=== PATIENT | female | born 1950 | race Caucasian/White ===

== ENCOUNTER 2016-12-11 22:36 | Emergency (ER) | payer MEDICARE, BC ==
[2016-12-11] MEDS ORDERED: FAMOTIDINE 20 MG/2 ML VIAL IV STA (23:07)
[2016-12-11] MEDS ORDERED: methylPREDNISolone SOD SUCCI 125 MG/2 ML VIAL IV STA (23:07)
[2016-12-12 00:16] VITALS: RESP 18
--- NOTE | 2016-12-12 01:02 | ED ---
General Adult HPI - General Chief complaint: Allergic Reaction Stated complaint: Allergic Reaction Time Seen by Provider: 12/11/16 23:07 Source: patient, family, RN notes reviewed Mode of arrival: ambulatory Limitations: no limitations - History of Present Illness Initial comments: Chief complaint and history of present illness a 66-year-old female here with her . The patient reports she was using a new supplement and think she is having ALLERGIC reaction to it she feels over throat is tight or closing off. No wheezing. - Related Data Home Medications Medication Instructions Recorded Confirmed Cholecalciferol [Vitamin D3] 1,000 unit PO DAILY 01/18/16 12/11/16 Inulin/Chromium Picolinate [Fiber 2 tab PO DAILY 07/24/16 12/11/16 Gummies Chew] Turmeric Root Extract [Turmeric] 500 mg PO DAILY 07/24/16 12/11/16 Alpha Lipoic Acid 1 tab PO DAILY 12/11/16 12/11/16 Milk Thistle 150 mg PO DAILY 12/11/16 12/11/16 Multivits-Min/Iron/FA/Lutein 1 tab PO DAILY 12/11/16 12/11/16 [Centrum Silver Women Tablet] Ubidecarenone [Co Q-10] 100 mg PO DAILY 12/11/16 12/11/16 Previous Rx's Medication Instructions Recorded Famotidine [Pepcid] 20 mg PO DAILY #3 tablet 12/12/16 predniSONE 20 mg PO DAILY #3 tab 12/12/16 Allergies Allergy/AdvReac Type Severity Reaction Status Date / Time amoxicillin Allergy Swelling Verified 12/11/16 23:39 of Lips cinnamon Allergy Rash/Hives Verified 12/11/16 23:39 Iodinated Contrast Media - Allergy Anaphylaxis Verified 12/11/16 23:39 Oral and [Iodinated Contrast Media - IV Dye] latex Allergy Rash/Hives Verified 12/11/16 23:39 venom-honey bee Allergy Swelling/Pa Verified 12/11/16 23:39 ralysis Review of Systems ROS Statement: Those systems with pertinent positive or pertinent negative responses have been documented in the HPI. Review of systems patient has some hives. States she feels over throat is closing. Is no stridor. No wheezing. No chest pain shortness breath GI/ problems. No neuro deficits. All systems are reviewed. Past medical problems significant significant for cancer, hypertension, osteoarthritis. Patient's surgeries include bilateral mastectomy, orthopedic surgery, and cholecystectomy. The patient has ALLERGIES to IV dye oral, latex. Nonsmoker nondrinker ROS Other: All systems not noted in ROS Statement are negative. Past Medical History Past Medical History: Cancer, Hypertension, Osteoarthritis (OA) Additional Past Medical History / Comment(s): breast CA, no current problems w/ hypertension, no longer takes medication History of Any Multi-Drug Resistant Organisms: MRSA Date of last positivie culture/infection: 2010 MDRO Source:: nasal Past Surgical History: Section, Cholecystectomy, Orthopedic Surgery Additional Past Surgical History / Comment(s): Bilateral mastectomy, bilateral knee replacements, bilateral shoulder surgeries, bilateral cateract surgeries, surgery on nose to remove mrsa 2010, left rotator cuff repair 07/25/16 Past Anesthesia/Blood Transfusion Reactions: No Reported Reaction Past Psychological History: No Psychological Hx Reported Smoking Status: Never smoker Past Alcohol Use History: None Reported Past Drug Use History: None Reported - Past Family History Mother Family Medical History: No Reported History General Exam - General Exam Comments Initial Comments: General: The patient is awake and alert, states she had an ALLERGIC reaction to Sinemet tablet. Vital signs show temperature 97.8 pulse 70 respiratory rate 20 pulse ox 99% room air blood pressure 184/77. Eye: Pupils are equal, round and reactive to light, extra-ocular movements are intact ; there is normal conjunctiva bilaterally. No signs of icterus. Ears, nose, mouth and throat: There are moist mucous membranes and no oral lesions. Neck: The neck is supple, there is no tenderness no stridor. Cardiovascular: There is a regular rate and rhythm. No murmur, rub or gallop is appreciated. Respiratory: Lungs are clear to auscultation, respirations are non-labored, breath sounds are equal. No wheezes, stridor, rales, or rhonchi. Gastrointestinal: Soft, non-distended, non-tender abdomen without masses or organomegaly noted. There is no rebound or guarding present. No CVA tenderness. Bowel sounds are unremarkable. Back: There is no tenderness to palpation in the midline. There is no obvious deformity. No rashes noted. Musculoskeletal: Normal ROM, no tenderness, There is no pedal edema. There is no calf tenderness or swelling. Sensation intact. Neurological: No complaint of any weakness or neuro deficits. No noted. Skin: Rare hives, mildly pruritic. Limitations: no limitations Course Vital Signs 12/11/16 12/12/16 22:50 00:15 Temperature 97.8 F Pulse Rate 78 65 Respiratory 20 18 Rate Blood Pressure 184/77 172/81 O2 Sat by Pulse 99 97 Oximetry Medical Decision Making - Medical Decision Making While in emergency room the patient received Pepcid 20 IV and site Medrol 125 IV push. She had taken 100 mg of Benadryl prior to coming emergency room. The patient examined reexamined 4 times while in emergency room. He stabbed feeling less and less like her throat was closing. At no time was there any stridor. The patient be discharged home advised to take prednisone 20 mg daily for 3 days. Continue with Benadryl 25 mg 4 times a day for 3 days. And Pepcid 20 mg daily for 3 days. Advised stay away from any and all things that cause ALLERGIC reactions. Told return emergency room if she has any sensation of recurrence of her ALLERGIC reaction. Disposition Clinical Impression: Allergic reaction Disposition: HOME SELF-CARE Condition: Good Instructions: General Allergic Reaction (ED) Additional Instructions: Take prednisone one tablet daily for 3 days. Take Benadryl for tablets daily for 3 days. Take Pepcid 20 mg one tablet daily for 3 days. Return emergency room if having difficulties at all. Follow-up with family physician as needed Prescriptions: Famotidine [Pepcid] 20 mg PO DAILY #3 tablet predniSONE 20 mg PO DAILY #3 tab Time of Disposition: 01:01
[2016-12-12 01:14] VITALS: BP 176/84; PULSE 68; TEMP 97
== END 2016-12-12 01:14 | disposition home or self-care (01) ==
LOC: EC 22:36
DX: T42.8X5A Adverse effect of antiparkinsonism drugs and other central muscle-tone depressants, initial encounter (principal); I10 Essential (primary) hypertension; Z79.899 Other long term (current) drug therapy; Z88.0 Allergy status to penicillin; Z91.018 Allergy to other foods; Z91.030 Bee allergy status; Z91.040 Latex allergy status; Z91.041 Radiographic dye allergy status; Z85.3 Personal history of malignant neoplasm of breast; Z90.13 Acquired absence of bilateral breasts and nipples
CPT/HCPCS: 99283; 96374; 96375; J2930

== ENCOUNTER → 2017-04-23 | Outpatient (CLI) | payer MEDICARE, BC ==
--- NOTE | 2017-04-23 09:34 | BD ---
EXAMINATION TYPE: MG DEXA axial skeleton. DATE OF EXAM: 04/23/2017 COMPARISON: NONE CLINICAL HISTORY: Postmenopausal female. Height: 5 FT 5 IN Weight: 241 FRAX RISK QUESTIONS: Alcohol (3 or more units per day): NO Family History (Parent hip fracture): NO Glucocorticoids (More than 3mos): NO (Ex: prednisone, prednisolone, methylprednisolone, dexamethasone, and hydrocortisone). History of Fracture in Adulthood: YES Secondary Osteoporosis: 1. Type 1 Diabetes: NO 2. Hyperthyroidism: NO 3. Menopause before 45: NO 4. Malnutrition: NO 5. Chronic liver disease: NO Rheumatoid Arthritis: YES Current Tobacco Use: NO RISK FACTORS HISTORY OF: History of Wrist Fracture: YES When: CHILD Active: YES Postmenopausal woman: PART HYST AGE 31 MEDICATIONS: Additional Medications: NONE Additional History: BREAST CA 2007 NO RADIATION ORAL CHEMO EXAM MEASUREMENTS: Bone mineral densitometry was performed using the Helpa System. Bone mineral density as measured about the Lumbar spine is: ----- L1-L4(G/cm2): 1.385 T Score Values are as follows: ----- L2: 1.9 ----- L3: 1.6 ----- L4: 1.5 ----- L1-L4: 1.7 BASELINE Bone mineral density about the R hip (g/cm2): 0.946 Bone mineral density about the L hip (g/cm2): 0.823 T Score values are as follows: -----R Neck: -0.7 -----L Neck: -0.8 -----R Total: -0.2 -----L Total: -0.1 BASELINE IMPRESSION: NORMAL STUDY. NOTE: T-SCORE=SD OF THE YOUNG ADULT MEAN.
--- NOTE | 2017-04-23 17:16 | WWHP ---
CHIEF COMPLAINT: The patient is here for her routine gynecologic exam and bone density screening. HPI: This is a 66-year-old G2, P2 with an LMP of 1981 who is status post vaginal hysterectomy for benign reasons. The patient has occasionally used Kenalog cream for intermittent vulvar pruritus. She is requesting another prescription for this. She is otherwise without gynecologic complaints. PAST MEDICAL HISTORY: Right breast cancer in 2006 and is status post bilateral mastectomy. She has completed 5 years of Femara and no longer uses this. Also history of chronic hypertension, arthritis, gastroesophageal reflux disease, and degenerative disc disease. MEDICATIONS: None. ALLERGIES: AMOXICILLIN, IV DYE, AND LATEX. PAST SURGICAL HISTORY: Bilateral mastectomy with reconstruction in 2006 and revision of the breast reconstruction in 2014, section in 1976 and 1980. Open cholecystectomy in the past. Shoulder surgeries in 1989, 1999 and 2015. Bilateral knee replacement surgeries in 2009 and 2012. Hemorrhoid surgery in the past, bilateral cataract surgery in the past. Colonoscopy in 2014. 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 SOCIAL HISTORY: She denies tobacco, alcohol and drug use. She has been since 2012 and this is her second marriage. 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 FAMILY HISTORY: Father and grandmother had diabetes. Mother had cardiac arrhythmia. REVIEW OF SYSTEMS: She has lost about 16 pounds over the last year. She denies respiratory, cardiac, or GI problems. She denies maltreatment. She did fall once in 10/12 and did undergo fall assessment at that time. : She denies any problems with urinary leakage. PHYSICAL EXAM: Blood pressure 144/82, height 5 feet 5 inches, weight 241 pounds. Temperature 98.0, pulse 75. This is a well developed, well nourished white female who is alert and oriented x3 in no acute distress. HEENT is within normal limits. Neck is supple without mass or thyromegaly. Chest and lungs clear to auscultation. Heart: Regular rate and rhythm. Breasts are consistent with bilateral mastectomies status post implant placement. Breasts are without mass or discharge and are nontender. Axillary exam is negative for adenopathy. Back negative for CVA tenderness. Abdomen is soft, nontender without palpable masses. Pelvic exam: External genitalia reveals mild to moderate atrophy without lesions. Vagina appears normal with mild atrophy. There is no evidence of prolapse. Bimanual exam is negative for mass or tenderness. Rectovaginal exam is negative for mass or tenderness and is negative for occult blood. Extremities are nontender. IMPRESSION: 1. A 66-year-old menopausal female status post vaginal hysterectomy for benign reasons with normal gynecologic exam. 2. Intermittent vulvar pruritus without any significant physical findings who has done well with intermittent use of Kenalog cream for this. 3. History of right breast cancer status post bilateral mastectomy with no evidence of recurrence. PLAN: 1. PAP smears have been discontinued. 2. Self breast examination was discussed. 3. Mammograms have been discontinued. 4. Kenalog 0.1% cream b.i.d. p.r.n. She will call if she is having worsening symptoms or changes. 5. Bone density testing will be done today. Osteoporosis prevention was also discussed. 6. She will return in one year. VENICE
== END | disposition home or self-care (01) ==
LOC: WWCWWP 07:53
PROVIDERS: ATTEND Obstetrics & Gynecology
DX: Z78.0 Asymptomatic menopausal state (principal)
CPT/HCPCS: 77080

== ENCOUNTER → 2018-08-14 | Outpatient (CLI) | payer MEDICARE ==
[2018-08-14 12:30] LABS: Basophils % (A) 1 %; Eosinophils # (A) 0.1 k/uL (0-0.7); Eosinophils % (A) 2 %; HCT 44.4 % (34.0-46.0); HGB 14.2 gm/dL (11.4-16.0); Lymphocytes # (A) 1.5 k/uL (1.0-4.8); Lymphocytes % (A) 22 %; MCH 27.4 pg (25.0-35.0); MCV 85.7 fL (80.0-100.0); Mean Platelet Volume 7.8; Monocytes # (A) 0.4 k/uL (0-1.0); Monocytes % (A) 5 %; Neutrophils # (A) 4.6 k/uL (1.3-7.7); Neutrophils % (A) 69 %; Platelet Count 219 k/uL (150-450); RBC 5.18 m/uL (3.80-5.40); RDW 14.3 % (11.5-15.5); WBC 6.7 k/uL (3.8-10.6)
[2018-08-14 12:33] LABS: Appearance,Urine Cloudy (Clear); Bacteria,Urine Rare /hpf; Bilirubin,Urine Negative (Negative); Blood,Urine Negative (Negative); Color,Urine Yellow; Glucose,Urine (UA) Negative (Negative); Ketones,Urine Negative (Negative); Leukocyte Esterase,Urine Large (Negative); Mucus,Urine Rare /hpf; Nitrite,Urine Negative (Negative); Protein,Urine Negative (Negative); RBC,Urine 6 /hpf (0-5); Specific Gravity,Urine 1.018 (1.001-1.035); Squamous Epithelial Cell,Urine 35 /hpf (0-4); Urobilinogen,Urine <2.0 mg/dL (<2.0); WBC,Urine 33 /hpf (0-5)
[2018-08-14 19:13] LABS: Albumin 4.4 g/dL (3.80-4.90); Albumin/Globulin Ratio 1.91 (1.20-2.10); Anion Gap 9.3 mmol/L (4.00-12.00); Calcium 9.6 mg/dL (8.7-10.3); Carbon Dioxide 28.7 mmol/L (21.6-31.8); Globulin 2.3 g/dL (2.1-3.7); LDL Cholesterol,Calculated 100.2 mg/dL (0.0-131.0); Total Bilirubin 0.9 mg/dL (0.3-1.2); Total Protein 6.7 g/dL (6.2-8.2); VLDL Calculation 13.8 mg/dL (5.00-40.00)
[2018-08-14 21:32] LABS: Hemoglobin A1C 5.4 % (4.0-6.0)
== END | disposition home or self-care (01) ==
LOC: LABWHC1 11:38
PROVIDERS: ATTEND Family Medicine
DX: E66.01 Morbid (severe) obesity due to excess calories (principal)
CPT/HCPCS: 36415; 80053; 80061; 81001; 83036; 84443; 85025

== ENCOUNTER → 2018-08-28 | Outpatient (CLI) | payer MEDICARE ==
--- NOTE | 2018-08-28 16:00 | US ---
EXAMINATION TYPE: US carotid duplex BILAT DATE OF EXAM: 08/28/2018 COMPARISON: NONE CLINICAL HISTORY: Murmur R01.1, Carotid Bruit R09.89. EXAM MEASUREMENTS: RIGHT: Peak Systolic Velocity (PSV) cm/sec ----- Right CCA: 79.8 ----- Right ICA: 105.0 ----- Right ECA: 106.1 ICA/CCA ratio: 1.3 RIGHT: End Diastole cm/sec ----- Right CCA: 18.9 ----- Right ICA: 32.3 ----- Right ECA: 10.2 LEFT: Peak Systolic Velocity (PSV) cm/sec ----- Left CCA: 82.9 ----- Left ICA: 87.7 ----- Left ECA: 117.0 ICA/CCA ratio: 1.6 LEFT: End Diastole cm/sec ----- Left CCA: 15.7 ----- Left ICA: 31.5 ----- Left ECA: 13.3 VERTEBRALS (direction of flow): Right Vertebral: Antegrade Left Vertebral: Antegrade Rhythm: Normal Mild homogeneous plaque seen with no significant stenosis seen. IMPRESSION: Mild degree of grayscale atheromatous plaquing with no sonographically evident hemodynam ically significant stenosis within either visualized carotid arterial system.. Criteria for Assigning % of Stenosis / Diameter reduction (Estimation based on the indirect measurements of the internal carotid artery velocities (ICA PSV). 1. Normal (no stenosis)=ICA PSV < 125 cm/s: ratio < 2.0: ICA EDV<40 cm/s. 2. Less than 50% stenosis=ICA PSV < 125 cm/s: ratio < 2.0: ICA EDV<40 cm/s. 3. 50 to 69% stenosis=ICA PSV of 125 to 230 cm/s: ration 2.0 ? 4.0: ICA EDV 40-100 cm/s. 4. Greater than 70% stenosis to near occlusion= ICA PSV > 230 cm/s: ratio > 4.0: ICA EDV > 100 cm/s. 5. Near occlusion= ICA PSV velocities may be low or undetectable: variable ratio and ICA EDV. 6. Total occlusion=unable to detect flow.
--- NOTE | 2018-08-29 11:32 | ECHOF ---
Referral Reason:Murmur R01.1, Carotid Bruit R09.89 MEASUREMENTS -------- HEIGHT: 165.1 cm WEIGHT: 108.9 kg BP: 125/75 RVIDd: 3.2 cm (< 3.3) IVSd: 1.5 cm (0.6 - 1.1) LVIDd: 3.5 cm (3.9 - 5.3) LVPWd: 1.4 cm (0.6 - 1.1) IVSs: 1.6 cm LVIDs: 2.7 cm LVPWs: 1.8 cm LA Diam: 3.5 cm (2.7 - 3.8) LAESV Index (A-L): 32.97 ml/m Ao Diam: 3.0 cm (2.0 - 3.7) AV Cusp: 1.5 cm (1.5 - 2.6) MV EXCURSION: 11.063 mm (> 18.000) MV EF SLOPE: 28 mm/s (70 - 150) EPSS: 0.2 cm MV E Luisito: 0.96 m/s MV DecT: 356 ms MV A Luisito: 1.21 m/s MV E/A Ratio: 0.79 AV maxP.93 mmHg AV meanP.72 mmHg AR PHT: 1156 ms RAP: 5.00 mmHg RVSP: 35.84 mmHg FINDINGS -------- Sinus rhythm. This was a technically adequate study. The left ventricular size is normal. There is moderate concentric left ventricular hypertrophy. O verall left ventricular systolic function is normal with, an EF between 60 - 65 %. The right ventricle is normal in size. LA is midly dilated 29-33ml/m2. The right atrium is normal in size. There is mild aortic valve sclerosis. There is mild aortic stenosis present. Peak/mean gradient a cross the Aortic Valve is 24.93mmHg / 13.72mmHg. The mitral valve leaflets are mildly thickened. Mild mitral annular calcification present. No manuel ral regurgitation. Mild tricuspid regurgitation present. There is mild pulmonary hypertension. The right ventricular systolic pressure, as measured by Doppler, is 35.84mmHg. Trace/mild (physiologic) pulmonic regurgitation. The aortic root size is normal. Normal inferior vena cava with normal inspiratory collapse consistent with estimated right atrial pre ssure of 5 mmHg. The inferior vena cava is mildly dilated. There is no pericardial effusion. CONCLUSIONS -------- 1. Sinus rhythm. 2. This was a technically adequate study. 3. The left ventricular size is normal. 4. There is moderate concentric left ventricular hypertrophy. 5. Overall left ventricular systolic function is normal with, an EF between 60 - 65 %. 6. The right ventricle is normal in size. 7. LA is midly dilated 29-33ml/m2. 8. The right atrium is normal in size. 9. There is mild aortic valve sclerosis. 10. There is mild aortic stenosis present. 11. Peak/mean gradient across the Aortic Valve is 24.93mmHg / 13.72mmHg. 12. The mitral valve leaflets are mildly thickened. 13. Mild mitral annular calcification present. 14. No mitral regurgitation. 15. Mild tricuspid regurgitation present. 16. There is mild pulmonary hypertension. 17. The right ventricular systolic pressure, as measured by Doppler, is 35.84mmHg. 18. Trace/mild (physiologic) pulmonic regurgitation. 19. The aortic root size is normal. 20. Normal inferior vena cava with normal inspiratory collapse consistent with estimated right atrial pressure of 5 mmHg. 21. The inferior vena cava is mildly dilated. 22. There is no pericardial effusion. INSURANCE HEALTHCARE CONSULTANT: Nina Zendejas RDCS
== END | disposition home or self-care (01) ==
LOC: RADUSMAIN 11:59
PROVIDERS: ATTEND Family Medicine
DX: I65.29 Occlusion and stenosis of unspecified carotid artery (principal)
CPT/HCPCS: 93306; 93880

== ENCOUNTER → 2018-10-07 | Outpatient (CLI) | payer MEDICARE | END | disposition home or self-care (01) | LOC: LABWHC1 11:10 | PROVIDERS: ATTEND Family Medicine | DX: Z53.9 Procedure and treatment not carried out, unspecified reason (principal) ==

== ENCOUNTER → 2019-08-31 | Outpatient (CLI) | payer MEDICARE | END | disposition home or self-care (01) | LOC: RADECHMAIN 12:21 | PROVIDERS: ATTEND Nuclear Medicine Nuclear Cardiology | DX: I47.1 Supraventricular tachycardia (principal); I49.3 Ventricular premature depolarization | CPT/HCPCS: 93270 ==

== ENCOUNTER → 2019-09-23 | Outpatient (CLI) | payer MEDICARE ==
--- NOTE | 2019-09-24 10:23 | BMR ---
EXAMINATION TYPE: MR breast BILAT wo con DATE OF EXAM: 09/23/2019 COMPARISON: NONE HISTORY: personal hx malignant neoplasm breast, rupture implant. Implants were placed 13 years ago [facility] 2006. CONTRAST: Multiplanar, multisequence images of the breasts were acquired without IV contrast. TECHNIQUE: A series of fat and water weighted images in the long and short axis views of both breasts are obtained . Three-dimensional and additional postprocessing imaging is created on independent wo rkstation and reviewed during official interpretation of this study. FINDINGS: There is subcutaneous fat in both breasts after reconstruction. There are symmetric in size subpectoral silicone implants noted bilaterally. No suspicious infolding to suggest intracapsular ru pture in the right breast. Left breast shows some more suspicious infolding along superior lateral as pect sagittal image 16 correlating with axial image 35 series 501. There is additional more suspiciou s infolding along the inferior aspect of the implant seen best on axial image 13 corresponding to sag ittal image 21. There is no suggestion of foci of silicone outside the implants to suggest extracaps ular rupture. Chest wall appears intact. No suspicious axillary adenopathy. No suspicious skin thickening is noted. Suspect incidental small to moderate size hiatal hernia, correlate clinically. IMPRESSION: MRI shows evidence of some intracapsular rupture involving the left breast implant though implants size overall remains fairly symmetric to opposite right breast. No extracapsular rupture is noted.
== END | disposition home or self-care (01) ==
LOC: RADMRIMAIN 07:13
PROVIDERS: ATTEND Surgery Plastic and Reconstructive Surgery
DX: Z42.1 Encounter for breast reconstruction following mastectomy (principal); N64.89 Other specified disorders of breast; L90.5 Scar conditions and fibrosis of skin; Z98.82 Breast implant status; Z85.3 Personal history of malignant neoplasm of breast
CPT/HCPCS: 77047

== ENCOUNTER → 2019-11-11 | Outpatient (CLI) | payer MEDICARE ==
--- NOTE | 2019-11-11 12:52 | XR ---
EXAMINATION TYPE: XR chest 2V DATE OF EXAM: 11/11/2019 COMPARISON: 03/22/2015 HISTORY: Persistent cough for 6-8 weeks TECHNIQUE: Frontal and lateral views of the chest are obtained. FINDINGS: Copious soft tissues obscure the lower lungs on the frontal view. There is no focal air spa ce opacity, pleural effusion, or pneumothorax seen. The cardiac silhouette size is within normal chavarria its. Mild to moderate degenerative change of the spine. The osseous structures are intact. Cholecyst ectomy clips are seen. Rotator cuff anchor of the right humerus from prior surgery. IMPRESSION: No acute cardiopulmonary process.
== END | disposition home or self-care (01) ==
LOC: LABWHC1 11:55
PROVIDERS: ATTEND Family Medicine
DX: R05 Cough (principal)
CPT/HCPCS: 87502; 71046; U0002

== ENCOUNTER → 2020-01-19 | Outpatient (CLI) | payer MEDICARE | END | disposition home or self-care (01) | LOC: LABWHC1 08:48 | PROVIDERS: ATTEND Internal Medicine Clinical Cardiac Electrophysiology | DX: Z11.59 Encounter for screening for other viral diseases (principal) | CPT/HCPCS: 87635 ==

== ENCOUNTER → 2020-01-26 | Outpatient (CLI) | payer MEDICARE ==
--- NOTE | 2020-01-28 09:17 | USB ---
Reason for exam: clinical finding. History: Patient is postmenopausal and has history of breast cancer at age 55. Mastectomy of both breasts, October 30, 2006. Malignant right mammotome panel of the right breast, October 18, 2006. Benign excisional biopsy of the right breast, October 14, 2000. Excisional biopsy of the left breast. Took estrogen for 3 years. Indicated problem(s): breast implant problem in the right breast. Physical Findings: Nurse Summary: right breast hematoma x 1 month from breast surgery (nurse raya). US Breast RT Right complete breast ultrasound includes all four quadrants, the retroareolar region and axilla. Finding demonstrates a 13.3 x 2.3cm hypoechoic lesion with echoes at 2-4 o'clock. Could relate to rashad-implant hematoma/seroma or rupture. MRI needed for further evaluation. These results were verbally communicated with the patient and result sheet given to the patient on 01/26/20. ASSESSMENT: Incomplete: need additional imaging evaluation, BI-RAD 0 RECOMMENDATION: Breast MRI of both breasts.
== END | disposition home or self-care (01) ==
LOC: RADUSWWP 13:49
PROVIDERS: ATTEND Surgery Plastic and Reconstructive Surgery
DX: Z08 Encounter for follow-up examination after completed treatment for malignant neoplasm (principal); Z85.3 Personal history of malignant neoplasm of breast; Z90.11 Acquired absence of right breast and nipple

== ENCOUNTER → 2020-12-28 | Outpatient (CLI) | payer MEDICARE ==
--- NOTE | 2020-12-28 10:34 | CT ---
EXAMINATION TYPE: CT abdomen pelvis wo con DATE OF EXAM: 12/28/2020 HISTORY: Right sided lower quadrant and pelvic pain CT DLP: 1318 mGycm. Automated Exposure Control for Dose Reduction was Utilized. TECHNIQUE: CT scan of the abdomen and pelvis is performed without oral or IV contrast. COMPARISON: NONE FINDINGS: Within the limitations of a non-contrast study, the following observations are made. LUNG BASES: Mild bibasilar linear scarring and/or atelectasis. Partial visualization of right breast implant. Mild to moderate left atrial dilatation with suspected mild to moderate left ventricular dil atation. At least moderate educational level of the mitral valve. LIVER/GB: Cholecystectomy clips. PANCREAS: No significant abnormality is seen. SPLEEN: No significant abnormality is seen. ADRENALS: No significant abnormality is seen. KIDNEYS: No significant abnormality is seen. BOWEL: There is 4.2 x 2.2 cm duodenal diverticulum along second portion mesenteric surface coronal im age 36. Slightly suboptimal evaluation of bowel without enteric contrast. No suspicious small or larg e bowel dilatation. Stomach poorly distended and thus suboptimally evaluated. Diverticula in the left and sigmoid colon. No CT evidence for acute diverticulitis. Appendix is not seen with certainty. No inflammatory change at base of cecum in the right lower quadrant GENITAL ORGANS: Uterus surgically absent or markedly atrophic. LYMPH NODES: No greater than 1cm abdominal or pelvic lymph nodes are appreciated. Slightly prominent mesenteric lymph nodes with mild haziness. OSSEOUS STRUCTURES: Moderate axial joint space loss with mild to moderate acetabular spurring in both hips. Moderate disc space narrowing with vacuum disc phenomenon at L5-S1 level. Mild disc space narr owing with vacuum disc phenomenon at L4-L5 level. [id number] multilevel anterior and lateral sp urring in the thoracolumbar spine. OTHER: There is moderate to large size fat-containing umbilical hernia. Mild calcified plaque of the aorta extends into branch vessels slightly more prominent origin of left renal artery IMPRESSION: 1. Mild prominence of mesenteric lymph nodes with mild lexii mesentery appearance could reflect produ ct of acute mesenteric panniculitis, correlate clinically. No bowel obstruction or suspicious finding otherwise seen to account for patient's right lower quadrant pain.
== END | disposition home or self-care (01) ==
LOC: RADCTMAIN 09:42
PROVIDERS: ATTEND Family Medicine
DX: R10.31 Right lower quadrant pain (principal)
CPT/HCPCS: 74176

== ENCOUNTER → 2021-06-20 | Outpatient (CLI) | payer MEDICARE ==
[2021-06-20 12:16] LABS: HCT 39.7 % (34.0-46.0); HGB 12.8 gm/dL (11.4-16.0); MCH 28.6 pg (25.0-35.0); MCHC 32.3 g/dL (31.0-37.0); MCV 88.8 fL (80.0-100.0); Mean Platelet Volume 8.5; Platelet Count 183 k/uL (150-450); RBC 4.47 m/uL (3.80-5.40); RDW 13.7 % (11.5-15.5); WBC 5.9 k/uL (3.8-10.6)
[2021-06-20 12:19] LABS: African American GFR (CKD) >90 (>60 ml/min/1.73 sqM); Anion Gap 6 mmol/L; Blood Urea Nitrogen 18 mg/dL (7-17); Carbon Dioxide 26 mmol/L (22-30); Chloride 105 mmol/L (98-107); Non-African American GFR(CKD) 83 (>60 ml/min/1.73 sqM); Potassium 3.9 mmol/L (3.5-5.1); Sodium 137 mmol/L (137-145)
== END | disposition home or self-care (01) ==
LOC: LABPAT 10:26
PROVIDERS: ATTEND Internal Medicine Clinical Cardiac Electrophysiology
DX: Z01.812 Encounter for preprocedural laboratory examination (principal); I48.11 Longstanding persistent atrial fibrillation
CPT/HCPCS: 36415; 80051; 82565; 84520; 85027

== ENCOUNTER 2021-06-22 16:44 | Emergency (ER) | payer MEDICARE ==
[2021-06-22 16:59] VITALS: RESP 18
[2021-06-22] MEDS ORDERED: SODIUM CHLORIDE 0.9% 1,000 ML IV STA (17:26)
[2021-06-22] MEDS ORDERED: MORPHINE SULFATE 4 MG/ML SYRINGE IVP STA (17:26)
[2021-06-22] MEDS ORDERED: methylPREDNISolone SOD SUCCI 125 MG/2 ML VIAL IV STA (17:32)
[2021-06-22] MEDS ORDERED: FAMOTIDINE 20 MG/2 ML VIAL IV STA (17:33)
[2021-06-22] MEDS ORDERED: diphenhydrAMINE 50 MG/ML 1 ML VIAL IVP STA (17:33)
[2021-06-22 17:39] LABS: Basophils % (A) 0 %; Eosinophils # (A) 0.1 k/uL (0-0.7); Eosinophils % (A) 1 %; HCT 40.4 % (34.0-46.0); HGB 13.2 gm/dL (11.4-16.0); Lymphocytes # (A) 0.7 k/uL (1.0-4.8); Lymphocytes % (A) 12 %; MCH 28.3 pg (25.0-35.0); MCHC 32.8 g/dL (31.0-37.0); MCV 86.3 fL (80.0-100.0); Mean Platelet Volume 8.2; Monocytes # (A) 0.3 k/uL (0-1.0); Monocytes % (A) 5 %; Neutrophils # (A) 5.1 k/uL (1.3-7.7); Neutrophils % (A) 81 %; Platelet Count 170 k/uL (150-450); RBC 4.67 m/uL (3.80-5.40); RDW 13.4 % (11.5-15.5); WBC 6.3 k/uL (3.8-10.6)
--- NOTE | 2021-06-22 17:44 | ED ---
General Adult HPI - General Chief complaint: Headache Stated complaint: headache/nausea/neck pain Time Seen by Provider: 06/22/21 17:05 Source: patient, RN notes reviewed Mode of arrival: ambulatory Limitations: no limitations - History of Present Illness Initial comments: 70-year-old female presents to the emergency room for a chief complaint of headache. Patient states that she had a headache starting today. States this started this morning and has been persistent throughout the day. She states that over the past 3 days she had some right-sided neck pain as well. This happened a couple weeks ago additionally. Patient states the neck pain is better but her headache is worse. Patient denies nausea vomiting. Patient did take Tylenol that didn't seem to help. Patient did get her covid and influenza shots yesterday. She denies fevers. Denies neck stiffness. Denies visual changes.Patient has no other complaints at this time including shortness of breath, chest pain, abdominal pain, nausea or vomiting, headache, or visual changes. - Related Data Home Medications Medication Instructions Recorded Confirmed Acetaminophen [Tylenol 8 Hour] 650 mg PO Q8H PRN 06/22/21 06/22/21 Apixaban [Eliquis] 5 mg PO BID 06/22/21 06/22/21 Metoprolol Succinate [Toprol XL] 25 mg PO BID 06/22/21 06/22/21 Allergies Allergy/AdvReac Type Severity Reaction Status Date / Time amoxicillin Allergy Swelling Verified 06/22/21 17:35 of Lips cinnamon Allergy Rash/Hives Verified 06/22/21 17:35 Iodinated Contrast Media Allergy Anaphylaxis Verified 06/22/21 17:35 [Iodinated Contrast Media - IV Dye] latex Allergy Rash/Hives Verified 06/22/21 17:35 venom-honey bee Allergy Swelling/Pa Verified 06/22/21 17:35 ralysis Review of Systems ROS Statement: Those systems with pertinent positive or pertinent negative responses have been documented in the HPI. ROS Other: All systems not noted in ROS Statement are negative. Past Medical History Past Medical History: Cancer, Hypertension, Osteoarthritis (OA) Additional Past Medical History / Comment(s): breast CA, no current problems w/hypertension, no longer takes medication History of Any Multi-Drug Resistant Organisms: MRSA Date of last positivie culture/infection: 2010 MDRO Source:: nasal Past Surgical History: Section, Cholecystectomy, Orthopedic Surgery Additional Past Surgical History / Comment(s): Bilateral mastectomy, bilateral knee replacements, bilateral shoulder surgeries, bilateral cateract surgeries, surgery on nose to remove mrsa 2010, left rotator cuff repair 07/25/16 Past Anesthesia/Blood Transfusion Reactions: No Reported Reaction Past Psychological History: No Psychological Hx Reported Smoking Status: Never smoker Past Alcohol Use History: None Reported Past Drug Use History: None Reported - Past Family History Mother Family Medical History: No Reported History General Exam Limitations: no limitations General appearance: alert, in no apparent distress Head exam: Present: atraumatic Eye exam: Present: normal appearance, PERRL, EOMI. Absent: scleral icterus, conjunctival injection ENT exam: Present: normal exam, mucous membranes moist Neck exam: Present: normal inspection, full ROM. Absent: tenderness Respiratory exam: Present: normal lung sounds bilaterally. Absent: respiratory distress, wheezes Cardiovascular Exam: Present: regular rate, normal rhythm, normal heart sounds GI/Abdominal exam: Present: soft, normal bowel sounds. Absent: distended, tenderness Neurological exam: Present: alert, oriented X3, normal gait, other (GCS 15) Course Vital Signs 06/22/21 06/22/21 16:56 19:04 Temperature 98.5 F 98.2 F Pulse Rate 74 61 Respiratory 18 18 Rate Blood Pressure 164/85 176/86 O2 Sat by Pulse 95 97 Oximetry Medical Decision Making - Medical Decision Making Vitals are stable. No focal neurologic deficits. CBC CMP unremarkable. CT head and neck with contrast did not show any abnormality. Patient was given pain medication and did have significant improvement in symptoms. States her headache is completely gone. Patient was somewhat hypertensive in the emergency room. States she is due for her metoprolol which she takes twice a day. She will take this when she gets home. She will return here for any worsening symptoms. - Lab Data Result diagrams: 06/22/21 17:35 06/22/21 17:35 Lab Results 06/22/21 06/22/21 Range/Units 17:35 17:35 WBC 6.3 (3.8-10.6) k/uL RBC 4.67 (3.80-5.40) m/uL Hgb 13.2 (11.4-16.0) gm/dL Hct 40.4 (34.0-46.0) % MCV 86.3 (80.0-100.0) fL MCH 28.3 (25.0-35.0) pg MCHC 32.8 (31.0-37.0) g/dL RDW 13.4 (11.5-15.5) % Plt Count 170 (150-450) k/uL MPV 8.2 Neutrophils % 81 % Lymphocytes % 12 % Monocytes % 5 % Eosinophils % 1 % Basophils % 0 % Neutrophils # 5.1 (1.3-7.7) k/uL Lymphocytes # 0.7 L (1.0-4.8) k/uL Monocytes # 0.3 (0-1.0) k/uL Eosinophils # 0.1 (0-0.7) k/uL Basophils # 0.0 (0-0.2) k/uL Sodium 134 L (137-145) mmol/L Potassium 3.4 L (3.5-5.1) mmol/L Chloride 101 (98-107) mmol/L Carbon Dioxide 23 (22-30) mmol/L Anion Gap 10 mmol/L BUN 12 (7-17) mg/dL Creatinine 0.56 (0.52-1.04) mg/dL Est GFR (CKD-EPI)AfAm >90 (>60 ml/min/1.73 sqM) Est GFR (CKD-EPI)NonAf >90 (>60 ml/min/1.73 sqM) Glucose 136 H (74-99) mg/dL Calcium 9.2 (8.4-10.2) mg/dL Total Bilirubin 1.1 (0.2-1.3) mg/dL AST 38 H (14-36) U/L ALT 26 (4-34) U/L Alkaline Phosphatase 151 H (38-126) U/L Total Protein 7.0 (6.3-8.2) g/dL Albumin 3.8 (3.5-5.0) g/dL Disposition Clinical Impression: Headache Disposition: HOME SELF-CARE Condition: Good Instructions (If sedation given, give patient instructions): Acute Headache (ED) Additional Instructions: Please take Tylenol at home for pain. Please follow-up with primary care. If you have worsening symptoms return to the emergency room. Is patient prescribed a controlled substance at d/c from ED?: No Referrals: Ida Shaffer MD [Primary Care Provider] - 1-2 days Time of Disposition: :07
[2021-06-22 17:49] LABS: ALT 26 U/L (4-34); AST 38 U/L (14-36); African American GFR (CKD) >90 (>60 ml/min/1.73 sqM); Albumin 3.8 g/dL (3.5-5.0); Alkaline Phosphatase 151 U/L (38-126); Anion Gap 10 mmol/L; Blood Urea Nitrogen 12 mg/dL (7-17); Calcium 9.2 mg/dL (8.4-10.2); Carbon Dioxide 23 mmol/L (22-30); Chloride 101 mmol/L (98-107); Glucose 136 mg/dL (74-99); Non-African American GFR(CKD) >90 (>60 ml/min/1.73 sqM); Potassium 3.4 mmol/L (3.5-5.1); Sodium 134 mmol/L (137-145); Total Bilirubin 1.1 mg/dL (0.2-1.3)
--- NOTE | 2021-06-22 18:31 | CT ---
EXAMINATION TYPE: CT angio head neck DATE OF EXAM: 06/22/2021 COMPARISON: none HISTORY: Headache. CT DLP: 1873 mGycm CONTRAST: Performed without and with IV Contrast, patient injected with 65 mL of Isovue 370. Combination Contrast CTA cervical carotids and [place] CTA cervical carotids with 3-D recons truction Contrast CTA of the cervical carotids was performed 3-D reconstruction imaging obtained at a separate workstation. Right carotid system: Mild plaque is seen of the right common carotid artery. There is mild plaque a lso noted at the carotid bulb and proximal ICA. No significant diameter reduction. ECA is patent. Right vertebral artery appears unremarkable. Left carotid system: Mild plaque is seen of the left common carotid artery. There is mild plaque als o noted at the carotid bulb and proximal ICA. No significant diameter reduction. ECA is patent. Lef t vertebral artery appears unremarkable. IMPRESSION: 1. No significant diameter reduction to account for the patient's symptoms. CTA [place] with 3-D reconstruction Contrast CTA of the [place] was performed 3-D reconstruction imaging obtained at a separate workstation. Vertebrobasilar system as well as intracranial portions of the internal carotid arteries and their ma tanya tributaries are patent. I do not see evidence for sizable aneurysm or vascular malformation. Pl ease note MRI provides greater sensitivity and specificity. Visualized brain appears grossly unremar kable. IMPRESSION: 1. No significant abnormality. NASCET criteria was used in interpretation of this exam?
[2021-06-22 19:05] VITALS: BP 176/86; PULSE 61; TEMP 98.2
[2021-06-22] MEDS ORDERED: METOCLOPRAMIDE 5 MG/ML 2 ML VIAL IVP STA (19:08)
== END 2021-06-22 19:27 | disposition home or self-care (01) ==
LOC: EC 16:44
DX: R51.9 Headache, unspecified (principal); I10 Essential (primary) hypertension; M19.90 Unspecified osteoarthritis, unspecified site; Z79.01 Long term (current) use of anticoagulants; Z79.899 Other long term (current) drug therapy; Z85.3 Personal history of malignant neoplasm of breast
CPT/HCPCS: 36415; 80053; 85025; 70496; 70498; 96374; 96375 ×4; 96361; 99284; J2270; J1200; J2765; J2930; Q9967

== ENCOUNTER 2021-07-12 09:59 | Emergency (ER) | payer MEDICARE ==
[2021-07-12 10:42] VITALS: BP 160/81; PULSE 64; RESP 18; TEMP 98.2
--- NOTE | 2021-07-12 10:45 | ED ---
General Adult HPI - General Chief complaint: Recheck/Abnormal Lab/Rx Stated complaint: Covid test/Sent by dr paul Time Seen by Provider: 07/12/21 10:38 Source: patient, RN notes reviewed Mode of arrival: ambulatory Limitations: no limitations - History of Present Illness Initial comments: 70-year-old female presents emergency department for COVID-19 testing. Patient states she is asymptomatic she was sent over by Dr. Joe for COVID-19 testing as she is having surgery tomorrow. Patient denies fevers chills cough cold like symptoms - Related Data Home Medications Medication Instructions Recorded Confirmed Apixaban [Eliquis] 5 mg PO BID 06/22/21 07/12/21 Metoprolol Succinate [Toprol XL] 25 mg PO DAILY 06/22/21 07/12/21 Allergies Allergy/AdvReac Type Severity Reaction Status Date / Time amoxicillin Allergy Swelling Verified 07/12/21 10:42 of Lips cinnamon Allergy Rash/Hives Verified 07/12/21 10:42 Iodinated Contrast Media Allergy Anaphylaxis Verified 07/12/21 10:42 [Iodinated Contrast Media - IV Dye] latex Allergy Rash/Hives Verified 07/12/21 10:42 venom-honey bee Allergy Swelling/Pa Verified 07/12/21 10:42 ralysis Review of Systems ROS Statement: Those systems with pertinent positive or pertinent negative responses have been documented in the HPI. ROS Other: All systems not noted in ROS Statement are negative. Past Medical History Past Medical History: Cancer, Hypertension, Osteoarthritis (OA) Additional Past Medical History / Comment(s): breast CA, no current problems w/hypertension, no longer takes medication History of Any Multi-Drug Resistant Organisms: MRSA Date of last positivie culture/infection: 2010 MDRO Source:: nasal Past Surgical History: Section, Cholecystectomy, Orthopedic Surgery Additional Past Surgical History / Comment(s): Bilateral mastectomy, bilateral knee replacements, bilateral shoulder surgeries, bilateral cateract surgeries, surgery on nose to remove mrsa 2010, left rotator cuff repair 07/25/16 Past Anesthesia/Blood Transfusion Reactions: No Reported Reaction Past Psychological History: No Psychological Hx Reported Smoking Status: Never smoker - Past Family History Mother Family Medical History: No Reported History General Exam Limitations: no limitations General appearance: alert, in no apparent distress Head exam: Present: atraumatic, normocephalic, normal inspection Neck exam: Present: normal inspection. Absent: tenderness, meningismus, lymphadenopathy Respiratory exam: Present: normal lung sounds bilaterally. Absent: respiratory distress, wheezes, rales, rhonchi, stridor Cardiovascular Exam: Present: regular rate, normal rhythm, normal heart sounds. Absent: systolic murmur, diastolic murmur, rubs, gallop, clicks Course Vital Signs 07/12/21 10:40 Temperature 98.2 F Pulse Rate 64 Respiratory 18 Rate Blood Pressure 160/81 O2 Sat by Pulse 98 Oximetry Disposition Clinical Impression: Encounter for laboratory testing for COVID-19 virus Disposition: HOME SELF-CARE Condition: Stable Additional Instructions: Please return to the Emergency Department if symptoms worsen or any other concerns. Is patient prescribed a controlled substance at d/c from ED?: No Referrals: Ida Shaffer MD [Primary Care Provider] - 1-2 days Time of Disposition: 10:45
== END 2021-07-12 10:49 | disposition home or self-care (01) ==
LOC: EC 09:59
DX: Z20.822 Contact with and (suspected) exposure to COVID-19 (principal); I10 Essential (primary) hypertension; M19.90 Unspecified osteoarthritis, unspecified site; Z79.01 Long term (current) use of anticoagulants; Z88.0 Allergy status to penicillin; Z91.040 Latex allergy status; Z85.3 Personal history of malignant neoplasm of breast; Z90.49 Acquired absence of other specified parts of digestive tract; Z96.653 Presence of artificial knee joint, bilateral; Z90.13 Acquired absence of bilateral breasts and nipples
CPT/HCPCS: 87635; 99282

== ENCOUNTER 2021-07-13 06:55 | Day surgery (SDC) | payer MEDICARE ==
[2021-07-12 08:17] VITALS: BMI 41.5
[~2021-07-13 06:55] MED LIST: LIDOCAINE 1% (10MG/ML) FOR IV START INTRADERMA PRN
[2021-07-13] MEDS ORDERED: fentaNYL (PF) 50 MCG/ML 2 ML AMP IV PRN (07:00)
[2021-07-13] MEDS ORDERED: SODIUM CHLORIDE 0.9% 1,000 ML IV ONE (07:16)
[2021-07-13] MEDS ORDERED: PROPOFOL 10 MG/ML 20 ML VIAL IV ONE (09:25)
[2021-07-13] MEDS ORDERED: METOPROLOL TARTRATE 5 MG/5 ML VIAL IVP ONE (09:25)
[2021-07-13] MEDS ORDERED: LIDOCAINE 1% INJ 10MG/ML (20 ML MDV) ONE ×2 (09:25→09:54)
[2021-07-13] MEDS ORDERED: HEPARIN SODIUM,PORCINE 10,000 UNIT/ML 1 ML VIAL ONE (09:25)
[2021-07-13] MEDS ORDERED: ATROPINE SULFATE 0.1 MG/ML 10ML SYRINGE ONE (09:25)
[2021-07-13] MEDS ORDERED: MIDAZOLAM 2 MG/2 ML VIAL ONE (09:25)
[2021-07-13] MEDS ORDERED: PHENYLEPHRINE-0.9% NACL SYG 1,000 MCG/10 ML SYRINGE ONE (09:25)
[2021-07-13] MEDS ORDERED: SUCCINYLCHOLINE CHLORIDE 100 MG/5 ML SYR IV ONE (09:25)
[2021-07-13] MEDS ORDERED: ISOPROTERENOL 250 MCG/1.25 ML SYR IV ONE (09:25)
[2021-07-13] MEDS ORDERED: fentaNYL (PF) 50 MCG/ML 2 ML AMP ONE (09:25)
[2021-07-13] MEDS ORDERED: LIDOCAINE 1% INJ 10MG/ML (20 ML MDV) SQ ONE (10:04)
[2021-07-13] MEDS ORDERED: HEPARIN SOD,PORK IN 0.45% NACL 25,000 UNIT in 0.45% NACL 1 250ML.BAG IV ONE (10:17)
[2021-07-13] MEDS ORDERED: ACETAMINOPHEN TAB 325 MG TAB PO PRN (13:20)
--- NOTE | 2021-07-13 13:29 | P.EPPROC ---
- EP Procedure Note Electrophysiology Procedure Note: PROCEDURE A. fib ablation/PVI DIAGNOSIS Atrial fibrillation, symptomatic, refractory to therapy Paroxysmal Postconversion pauses, symptomatic RESULT No left atrial appendage mass seen on intracardiac echo Successful A. fib ablation/pulmonary vein isolation of all veins using cryo- ablation Complete entrance block in all 4 veins confirmed Phrenic nerve paresis with right superior pulmonary vein isolation, with recovery Esophageal deflection YES PROCEDURE DETAILS Patient was brought to the EP lab in a fasting state. Written informed consent was obtained prior to the procedure. Procedure performed under general anesthesia After initial muscle relaxant use, muscle relaxants were not given thereafter in order to assess phrenic nerve during procedure. Patient prepped and draped as per protocol Full cryo-set up with standard preparation of the cryoablation tools done. Femoral Venous access obtained on the right and left groins Venous and arterial Sheaths placed. Diagnostic catheters for the high right atrium, phrenic nerve stimulation and pacing, His bundle, RV and coronary sinus placed Intracardiac echo catheter placed. Long sheath placed in the right atrium Left and right transseptal catheterization performed under intracardiac echo guidance. Intravenous heparin with aCT above 300 Later, catheter positioning and balloon positioning in the left atrium, under intracardiac echo guidance Femoral arterial sheath for invasive blood pressure monitoring and sampling Diagnostic EP study with Drug infusion. No atrial fibrillation noted Coronary sinus pacing and recording Baseline measurements Sinus cycle length 1056 ms, VA interval 144 ms, QRS 112 ms and QT interval 466 ms AH 71 and HV 43 ms Sinus node recovery times at 600, 504 100 ms were 714 ms, 1378 and 1214 ms AV node Wenckebach block 400 ms VA Wenckebach block 370 ms Atrial pacing performed from the high right atrium and the coronary sinus RV pacing, VAAV Wenckebach block 370 ms Transseptal catheterization performed RA pressure /14/19 LA pressure 42/22/31 Transseptal catheterization performed with standard sheath. The cryoablation sheath was then placed with an over the wire exchange without any acute complications. All 4 pulmonary veins were isolated in the following sequence: Left superior followed by left inferior followed by right superior followed by right inferior The cryo-ablation balloon was placed at the os of each vein 1.5 mL of IV dye was injected to confirm an occluded vein Goal during cryoablation was to achieve complete occlusion of the pulmonary vein, achieve -30 degrees C at 30 seconds and achieve -40 degrees C at 60 seconds and a time to effect of less than 60-90 seconds, . If not the balloon was repositioned to obtain this result After completion of Cryoblation with durations from 180-240 seconds, entrance block was confirmed with the Attain circular catheter in a roving fashion around the antrum of the pulmonary veins Phrenic nerve pacing was performed from the SVC, right innominate vein area and diaphragm voltage was monitored. Diaphragmatic contractions were also monitored manually for strength of contraction. Parameter goals for each cryo freeze Complete occlusion of the appropriate vein -30 degrees C by 30 seconds -40 degrees C by 60 seconds Minimum between minus 40-55 degrees C Thaw time greater than 10 seconds Balloon visualized by intracardiac echo The esophagus was intubated. Esophageal Temperature monitoring with a CIRCA catheter formed. Esophageal deflection for hypothermia of the esophagus below 30 degrees C Left superior pulmonary vein Complete isolation, entrance block After following, the patient had a long sinus arrest requiring pacing and atropine, with full recovery Left inferior pulmonary vein Complete isolation, entrance block Right superior pulmonary vein, during phrenic nerve pacing Complete isolation, entrance block Phrenic nerve paresis with recovery. Thereafter isolation performed without any further phrenic nerve paresis Right inferior pulmonary vein, during phrenic nerve pacing Complete isolation, entrance block At the end of the procedure the Achieve catheter was once again used to check for entrance block Phrenic nerve stimulation was performed to confirm diaphragmatic stimulation the end of the procedure Cine fluoroscopy was performed at the very end of the procedure to confirm movement of both diaphragms with inspiration and expiration At the end of the procedure the patient was extubated Heparin was reversed Venous sheaths were removed and hemostasis assured, Vascade used Arterial sheath was removed, Vascade used PROCEDURES PERFORMED Diagnostic EP study CS pacing and recording Left and right transseptal catheterization Catheter the mapping of the tachycardia (NOT 3D mapping) Intracardiac echocardiography Pulmonary vein isolation with transseptal and comprehensive EPS, [id number] Femoral arterial catheterization for sampling and monitoring Drug Infusion +[id number]
--- NOTE | 2021-07-13 13:31 | P.PRLE ---
RE: Breann Mcdonnell Dear Ida Breann underwent successful cryoablation of the pulmonary veins Following that despite high-dose Isuprel we could not induce any further atrial fibrillation She will continue ELIQUIS but I will ask her to hold metoprolol for now She does have a tendency for postconversion pauses and in the future in [place] for loop monitor would be prudent Thank you for entrusting me with the care of the patient Warm regards Sincerely Gregory Vaughan
[2021-07-13] MEDS ORDERED: ACETAMINOPHEN IV (For NPO) 1,000 MG in EMPTY BAG 1 BAG IVPB ONE (14:30)
[2021-07-13] MEDS: LACTATED RINGERS 1,000 ML IV SCH (14:51)
[2021-07-13] MEDS: SODIUM CHLORIDE 0.9% 1,000 ML IV SCH (14:51)
[2021-07-13] MEDS: LOSARTAN 50 MG TAB PO SCH (17:56)
[2021-07-13] MEDS: APIXABAN 5 MG TAB PO SCH (20:57)
[2021-07-14] MEDS: LACTATED RINGERS 1,000 ML IV SCH (01:24)
[2021-07-14] MEDS: SODIUM CHLORIDE 0.9% 1,000 ML IV SCH (01:24)
[2021-07-14 08:00] VITALS: BP 143/75; PULSE 73; RESP 15; TEMP 97.7
[2021-07-14] MEDS: LOSARTAN 50 MG TAB PO SCH (08:41)
[2021-07-14] MEDS: APIXABAN 5 MG TAB PO SCH (08:41)
--- NOTE | 2021-07-14 09:49 | DS ---
DISCHARGE SUMMARY 70-year-old female with a history of paroxysmal atrial fibrillation with long post- conversion pauses and hypertrophic cardiomyopathy. She underwent successful cryoablation of the pulmonary veins. Intraoperatively, all 4 pulmonary veins were isolated. The right inferior pulmonary vein had a complex branching anatomy. She had phrenic nerve paresis during right superior pulmonary vein isolation, but this recovered in about 30-45 minutes and we completed the isolation without any further phrenic nerve issues. In addition, after following the cryo balloon following left superior pulmonary vein isolation, she had an episode of sinus arrest requiring atrial pacing briefly along with the IV atropine. There was no recurrence thereafter. This was immediately after the of the balloon was completed. In addition, the left and right atrial pressure is elevated and postoperatively her blood pressures have been elevated. I started losartan 50 mg p.o. daily yesterday and held metoprolol for now. On examination today, she has a systolic murmur over the precordium. No JVD. Abdomen is soft. Groins are mildly tender, but there is no hematoma. No swelling. She has been up and about in the room. She denies any chest discomfort other than soreness in the groin. She has no other complaints. IMPRESSION: 1. Paroxysmal atrial fibrillation. 2. Long post-conversion pauses. 3. Hypertrophic cardiomyopathy. 4. Elevated right left atrial pressures. PLAN: 1. Continue Eliquis. 2. Start losartan 50 mg p.o. daily. We will decide if she needs 25 or 50 mg p.o. daily depending upon the blood pressure response. 3. For now, metoprolol is on hold. 4. I did discuss implantation of a loop monitor for management of her tendency for sick sinus syndrome. I would wait for a month or two to see how she does on the losartan and in the future this could be a consideration. The decision will also be based upon the fact that she has hypertrophic cardiomyopathy and may need permanent pacing in the future. MMODL / IJN: [id number] / VENICE
== END 2021-07-14 11:32 | disposition home or self-care (01) ==
LOC: CATHEP 06:55 → 6NMEDSUR 13:14 → CATHEP 07-14 11:32
PROVIDERS: ATTEND Internal Medicine Clinical Cardiac Electrophysiology
DX: I48.0 Paroxysmal atrial fibrillation (principal); I42.2 Other hypertrophic cardiomyopathy
CPT/HCPCS: 93623; 93662; 93609; 93656; C1894 ×3; C1769 ×4; C1760 ×2; C1730 ×2; C1759; C1893; C1733; C1766; J2250; J1644 ×2; J2001; J0461; J3010; J0131; J2370; J0330; J2704

== ENCOUNTER 2021-07-17 15:03 | Inpatient (IN) | payer MEDICARE ==
[2021-07-17] MEDS ORDERED: SODIUM CHLORIDE 0.9% 1,000 ML IV STA (16:02)
--- NOTE | 2021-07-17 16:09 | ED ---
General Adult HPI - General Chief complaint: Weakness Stated complaint: weakness Time Seen by Provider: 07/17/21 15:44 Source: patient Mode of arrival: EMS Limitations: no limitations - History of Present Illness Initial comments: 70-year-old female past medical history A. fib, breast cancer presents emergency Department with reported weakness, nausea, diarrhea and palpitations which was sudden onset around 1 PM today. She was recently hospitalized. Had cardiac ablation on the for A. fib by Dr. Joe. Is discharged home on the . Today the patient was at home when she had sudden onset of heart racing. [place] sick to her stomach and had a bowel movement. She checked her blood pressure and it was low and had high heart rate. She use to take metoprolol however was recently switched to Losartan after her procedure. Did take her me dications today. She is also on Eliquis. Her normal blood pressure runs around 100 systolic. Patient also has a history of HOCM. Denies any black or bloody stools. No abdominal pain. Denies chest pain or shortness of breath. No other alleviating, precipitating or modifying factors - Related Data Home Medications Medication Instructions Recorded Confirmed Apixaban [Eliquis] 5 mg PO BID 06/22/21 07/17/21 Losartan Potassium 50 mg PO DAILY 07/17/21 07/17/21 Previous Rx's Medication Instructions Recorded Amiodarone [Cordarone] See Taper PO BID 60 Days #120 tab 07/18/21 Allergies Allergy/AdvReac Type Severity Reaction Status Date / Time amoxicillin Allergy Swelling Verified 07/17/21 17:56 of Lips cinnamon Allergy Rash/Hives Verified 07/17/21 17:56 Iodinated Contrast Media Allergy Anaphylaxis Verified 07/17/21 17:56 [Iodinated Contrast Media - IV Dye] latex Allergy Rash/Hives Verified 07/17/21 17:56 venom-honey bee Allergy Swelling/Pa Verified 07/17/21 17:56 ralysis Review of Systems ROS Statement: Those systems with pertinent positive or pertinent negative responses have been documented in the HPI. ROS Other: All systems not noted in ROS Statement are negative. Past Medical History Past Medical History: Cancer, Hypertension, Osteoarthritis (OA) Additional Past Medical History / Comment(s): breast CA, no current problems w/hypertension, no longer takes medication History of Any Multi-Drug Resistant Organisms: MRSA Date of last positivie culture/infection: 2010 MDRO Source:: nasal Past Surgical History: Section, Cholecystectomy, Orthopedic Surgery Additional Past Surgical History / Comment(s): Bilateral mastectomy, bilateral knee replacements, bilateral shoulder surgeries, bilateral cateract surgeries, surgery on nose to remove mrsa 2010, left rotator cuff repair 07/25/16 Past Anesthesia/Blood Transfusion Reactions: No Reported Reaction Past Psychological History: No Psychological Hx Reported Smoking Status: Never smoker Past Alcohol Use History: None Reported Past Drug Use History: None Reported - Past Family History Mother Family Medical History: No Reported History Father Family Medical History: Diabetes Mellitus General Exam Limitations: no limitations General appearance: alert, in no apparent distress Head exam: Present: atraumatic, normocephalic, normal inspection Eye exam: Present: normal appearance, PERRL, EOMI. Absent: scleral icterus, conjunctival injection, periorbital swelling ENT exam: Present: normal exam, mucous membranes moist Neck exam: Present: normal inspection. Absent: tenderness, meningismus, lymphadenopathy Respiratory exam: Present: normal lung sounds bilaterally. Absent: respiratory distress, wheezes, rales, rhonchi, stridor Cardiovascular Exam: Present: tachycardia, irregular rhythm, normal heart sounds. Absent: systolic murmur, diastolic murmur, rubs, gallop, clicks GI/Abdominal exam: Present: soft, normal bowel sounds. Absent: distended, tenderness, guarding, rebound, rigid Extremities exam: Present: normal inspection, full ROM, normal capillary refill. Absent: tenderness, pedal edema, joint swelling, calf tenderness Back exam: Present: normal inspection Neurological exam: Present: alert, oriented X3, CN II-XII intact Psychiatric exam: Present: normal affect, normal mood Skin exam: Present: warm, dry, intact, normal color. Absent: rash Course Vital Signs 07/17/21 07/17/21 07/17/21 15:04 15:47 15:50 Temperature 97.6 F Pulse Rate 120 H 122 H 140 H Pulse Rate [ Right Pulse Oximetery] Respiratory 18 18 18 Rate Blood Pressure 97/74 84/37 75/58 Blood Pressure [Right Arm] O2 Sat by Pulse 96 98 96 Oximetry 07/17/21 07/17/21 07/17/21 16:00 16:09 17:00 Temperature Pulse Rate 113 H 146 H Pulse Rate [ Right Pulse Oximetery] Respiratory 18 20 Rate Blood Pressure 87/68 107/87 127/89 Blood Pressure [Right Arm] O2 Sat by Pulse 96 97 Oximetry 07/17/21 07/17/21 07/17/21 17:30 17:59 18:00 Temperature Pulse Rate 137 H 118 H Pulse Rate [ Right Pulse Oximetery] Respiratory 20 18 20 Rate Blood Pressure 97/84 94/78 Blood Pressure 94/78 [Right Arm] O2 Sat by Pulse 95 96 Oximetry 07/17/21 07/17/21 07/17/21 18:17 18:30 18:53 Temperature 98.2 F Pulse Rate 82 76 Pulse Rate [ 73 Right Pulse Oximetery] Respiratory 18 13 Rate Blood Pressure 119/70 Blood Pressure 139/79 [Right Arm] O2 Sat by Pulse 95 95 98 Oximetry 07/17/21 07/17/21 07/17/21 19:00 20:00 21:00 Temperature 97.9 F 98.1 F Pulse Rate 76 Pulse Rate [ 77 Right Pulse Oximetery] Respiratory 16 Rate Blood Pressure 106/70 Blood Pressure 121/87 108/76 [Right Arm] O2 Sat by Pulse 96 97 97 Oximetry 07/17/21 07/17/21 21:44 22:30 Temperature 97.9 F Pulse Rate Pulse Rate [ 72 Right Pulse Oximetery] Respiratory 18 17 Rate Blood Pressure Blood Pressure 108/67 127/86 [Right Arm] O2 Sat by Pulse 97 99 Oximetry - Reevaluation(s) Reevaluation #1: Dr. Hernandez in ER - recommends amio bolus and gtt 07/17/21 17:39 EKG Findings - EKG Comments: EKG Findings:: EKG demonstrates A. fib with a rapid ventricular rate. Rate of 125. QRS 94. QTC 352. Diffuse ST depression in V4 through V6 as well as 1 and aVL. Elevation aVR Medical Decision Making - Medical Decision Making The patient is placed into room 12. Thorough history and physical exam was performed. Blood pressure is 50/30. She is given a fluid bolus and laboratory studies are obtained. Spoke with Dr. Hernandez who recommends amiodarone. Patient does have improvement in her blood pressures. Labs demonstrate a troponin was 0.813 which is likely due to recent procedure. Mag 1.7. Magnesium replaced. Patient be admitted. Spoke with Dr. Stiles who accepted admission with cardio to consult - Lab Data Result diagrams: 11/24/21 05:24 07/19/21 05:24 Lab Results 07/17/21 07/17/21 07/17/21 Range/Units 16:05 16:05 16:05 WBC 7.8 (3.8-10.6) k/uL RBC 4.14 (3.80-5.40) m/uL Hgb 11.9 (11.4-16.0) gm/dL Hct 36.2 (34.0-46.0) % MCV 87.5 (80.0-100.0) fL MCH 28.8 (25.0-35.0) pg MCHC 32.9 (31.0-37.0) g/dL RDW 13.5 (11.5-15.5) % Plt Count 198 (150-450) k/uL MPV 9.1 Neutrophils % 78 % Lymphocytes % 14 % Monocytes % 4 % Eosinophils % 2 % Basophils % 0 % Neutrophils # 6.1 (1.3-7.7) k/uL Lymphocytes # 1.1 (1.0-4.8) k/uL Monocytes # 0.4 (0-1.0) k/uL Eosinophils # 0.2 (0-0.7) k/uL Basophils # 0.0 (0-0.2) k/uL PT 11.6 (9.0-12.0) sec INR 1.1 (<1.2) APTT 26.2 (22.0-30.0) sec Sodium 136 L (137-145) mmol/L Potassium 3.5 (3.5-5.1) mmol/L Chloride 107 (98-107) mmol/L Carbon Dioxide 22 (22-30) mmol/L Anion Gap 7 mmol/L BUN 13 (7-17) mg/dL Creatinine 0.81 (0.52-1.04) mg/dL Est GFR (CKD-EPI)AfAm 85 (>60 ml/min/1.73 sqM) Est GFR (CKD-EPI)NonAf 74 (>60 ml/min/1.73 sqM) Glucose 126 H (74-99) mg/dL Plasma Lactic Acid Chang (0.7-2.0) mmol/L Calcium 8.9 (8.4-10.2) mg/dL Magnesium 1.7 (1.6-2.3) mg/dL Total Bilirubin 1.6 H (0.2-1.3) mg/dL AST 40 H (14-36) U/L ALT 27 (4-34) U/L Alkaline Phosphatase 137 H (38-126) U/L Troponin I (0.000-0.034) ng/mL Total Protein 6.2 L (6.3-8.2) g/dL Albumin 3.4 L (3.5-5.0) g/dL TSH 2.360 (0.465-4.680) mIU/L Coronavirus (PCR) (Not Detectd) 07/17/21 07/17/21 07/17/21 Range/Units 16:05 16:05 16:10 WBC (3.8-10.6) k/uL RBC (3.80-5.40) m/uL Hgb (11.4-16.0) gm/dL Hct (34.0-46.0) % MCV (80.0-100.0) fL MCH (25.0-35.0) pg MCHC (31.0-37.0) g/dL RDW (11.5-15.5) % Plt Count (150-450) k/uL MPV Neutrophils % % Lymphocytes % % Monocytes % % Eosinophils % % Basophils % % Neutrophils # (1.3-7.7) k/uL Lymphocytes # (1.0-4.8) k/uL Monocytes # (0-1.0) k/uL Eosinophils # (0-0.7) k/uL Basophils # (0-0.2) k/uL PT (9.0-12.0) sec INR (<1.2) APTT (22.0-30.0) sec Sodium (137-145) mmol/L Potassium (3.5-5.1) mmol/L Chloride (98-107) mmol/L Carbon Dioxide (22-30) mmol/L Anion Gap mmol/L BUN (7-17) mg/dL Creatinine (0.52-1.04) mg/dL Est GFR (CKD-EPI)AfAm (>60 ml/min/1.73 sqM) Est GFR (CKD-EPI)NonAf (>60 ml/min/1.73 sqM) Glucose (74-99) mg/dL Plasma Lactic Acid Chang 1.9 (0.7-2.0) mmol/L Calcium (8.4-10.2) mg/dL Magnesium (1.6-2.3) mg/dL Total Bilirubin (0.2-1.3) mg/dL AST (14-36) U/L ALT (4-34) U/L Alkaline Phosphatase (38-126) U/L Troponin I 0.813 H* (0.000-0.034) ng/mL Total Protein (6.3-8.2) g/dL Albumin (3.5-5.0) g/dL TSH (0.465-4.680) mIU/L Coronavirus (PCR) Not Detected (Not Detectd) Critical Care Time Critical Care Time: Yes Critical Care Time: 35 minutes Disposition Clinical Impression: Atrial fibrillation with RVR, Hypotension Disposition: ADMITTED IP TO THIS [facility] Condition: Stable Is patient prescribed a controlled substance at d/c from ED?: No Decision to Admit Reason: Admit from EC Decision Date: 07/17/21 Decision Time: 17:39
[2021-07-17 16:19] LABS: Basophils % (A) 0 %; Eosinophils # (A) 0.2 k/uL (0-0.7); Eosinophils % (A) 2 %; HCT 36.2 % (34.0-46.0); HGB 11.9 gm/dL (11.4-16.0); Lymphocytes # (A) 1.1 k/uL (1.0-4.8); Lymphocytes % (A) 14 %; MCH 28.8 pg (25.0-35.0); MCHC 32.9 g/dL (31.0-37.0); MCV 87.5 fL (80.0-100.0); Mean Platelet Volume 9.1; Monocytes # (A) 0.4 k/uL (0-1.0); Monocytes % (A) 4 %; Neutrophils # (A) 6.1 k/uL (1.3-7.7); Neutrophils % (A) 78 %; Platelet Count 198 k/uL (150-450); RBC 4.14 m/uL (3.80-5.40); RDW 13.5 % (11.5-15.5); WBC 7.8 k/uL (3.8-10.6)
[2021-07-17 16:30] LABS: ALT 27 U/L (4-34); AST 40 U/L (14-36); African American GFR (CKD) 85 (>60 ml/min/1.73 sqM); Albumin 3.4 g/dL (3.5-5.0); Alkaline Phosphatase 137 U/L (38-126); Anion Gap 7 mmol/L; Blood Urea Nitrogen 13 mg/dL (7-17); Calcium 8.9 mg/dL (8.4-10.2); Carbon Dioxide 22 mmol/L (22-30); Chloride 107 mmol/L (98-107); Glucose 126 mg/dL (74-99); INR 1.1 (<1.2); Magnesium 1.7 mg/dL (1.6-2.3); Non-African American GFR(CKD) 74 (>60 ml/min/1.73 sqM); Partial Thromboplastin Time 26.2 sec (22.0-30.0); Potassium 3.5 mmol/L (3.5-5.1); Prothrombin Time 11.6 sec (9.0-12.0); Sodium 136 mmol/L (137-145); Total Bilirubin 1.6 mg/dL (0.2-1.3); Total Protein 6.2 g/dL (6.3-8.2)
--- NOTE | 2021-07-17 16:58 | XR ---
EXAMINATION TYPE: XR chest 2V DATE OF EXAM: 07/17/2021 COMPARISON: NONE HISTORY: Weakness TECHNIQUE: 2 views FINDINGS: Heart and mediastinum are normal. Lungs are clear. Diaphragm is normal. Bony thorax is inta ct. There is no heart failure. There are chest leads. IMPRESSION: No active cardiopulmonary disease. No change.
[2021-07-17] MEDS ORDERED: METOPROLOL TARTRATE 5 MG/5 ML VIAL IVP SCH (17:00)
[2021-07-17] MEDS ORDERED: DEXTROSE 5% IN WATER 100 ML with AMIODARONE 150 MG IV ONE (17:24)
[2021-07-17] MEDS ORDERED: MAGNESIUM SULFATE-D5W PMX 1 GM in DEXTROSE/WATER 1 100ML.BAG IVPB ONE (17:24)
[2021-07-17] MEDS ORDERED: AMIODARONE 360 MG in DEXTROSE 5% IN WATER 200 ML IV ONE ×2 (17:30)
[2021-07-17] MEDS ORDERED: NALOXONE 0.4 MG/ML 1 ML VIAL IV PRN (17:40)
[2021-07-17] MEDS ORDERED: AMIODARONE IN DEXTROSE,ISO-OSM 360 MG/200 ML PLAST..BAG IV ONE (17:57)
[2021-07-17] MEDS ORDERED: AMIODARONE IN DEXTROSE,ISO-OSM 150 MG/100 ML PLAST..BAG IV ONE (17:57)
--- NOTE | 2021-07-17 21:50 | P.HPIM ---
History of Present Illness H&P Date: 07/17/21 The patient is a 70-year-old female with a PMH of A. fib on Eliquis, hypertrophic cardiomyopathy and hypertension who presents to the emergency room complaints of palpitations, diaphoresis, and lightheadedness. The patient recently underwent a cryoablation of the pulmonary veins on 07/13/[address] Vaughan when she was also switched from her Lopressor to Losartan. The patient reports that she had been doing well until earlier today at around 1 PM and she got up to go to the kitchen and when she came back and sat down in her living room, she suddenly felt palpitations and lightheadedness. She also felt nauseous and had a loose bowel movement. She checked her vitals and her heart rate was high and her blood pressure was low at which time she activated EMS. She denies bloody or black tarry stools. Also denied experiencing chest pain or shortness of breath. Denied fever, chills, headaches, visual disturbances. At time of the interview, she reports essentially feeling back to her baseline and denied having any active complaints aside from mild fatigue. Upon arrival to the emergency room, the patient was in A. fib RVR with pulse 120 and blood pressure 97/74. EKG revealed A. fib with RVR at 125 bpm. Laboratory evaluation was remarkable for troponin of 0.813. as per the ED documentation, case was discussed with cardiology on-call who recommended amiodarone. Review of systems: Pertinent positives and negatives as discussed in HPI, a complete review of systems was performed and all other systems are negative. Physical examination: General: non toxic, no distress, appears at stated age, normal weight Derm: no unusual rashes/lesions no unusual ecchymoses, warm, dry Head: atraumatic, normocephalic, symmetric Eyes: EOMI, no lid lag, anicteric sclera, pupils equal round reactive to light ENT: Nose and ears atraumatic, no thrush, no pharyngeal erythema Neck: No thyromegaly, no cervical lymphadenopathy, trachea midline, supple Mouth: no lip lesion, mucus membranes moist Cardiovascular: S1S2 reg, no murmur, positive posterior tibial pulse bilateral, no edema, capillary refill less than 2 seconds Lungs: CTA bilateral, no rhonchi, no rales , no accessory muscle use Abdominal: soft, nontender to palpation, no guarding, no appreciable organomegaly, normal bowel sounds Ext: no gross muscle atrophy, muscle strength 5 out of 5 in all 4 extremities grossly, no contractures, Neuro: CN II-XI grossly intact, light touch intact all 4 extremities, finger to nose within normal limits, Psych: Alert, oriented, appropriate affect Assessment/plan A. fib with RVR -Continue with amiodarone infusion -Continue with patient's home Eliquis -Cardiac monitoring -Cardiac consulted Troponin elevation -Likely secondary to ongoing A. fib with RVR -Patient asymptomatic at this time -Continue with cardiac monitoring -Trend for now -Cardiology notified of troponin of 1.44 Chronic conditions: Hypertension, HOCM -Hold off on antihypertensives at this time DVT prophylaxis -Eliquis The patient is admitted with an anticipated greater than 2 midnight stay for evaluation of Afib with rvr CODE STATUS: Full Code Discussed with: Patient Anticipated discharge date: 2-[address]: Home Past Medical History Past Medical History: Cancer, Hypertension, Osteoarthritis (OA) Additional Past Medical History / Comment(s): breast CA, no current problems w/hypertension, no longer takes medication History of Any Multi-Drug Resistant Organisms: MRSA Date of last positivie culture/infection: 2010 MDRO Source:: nasal Past Surgical History: Section, Cholecystectomy, Orthopedic Surgery Additional Past Surgical History / Comment(s): Bilateral mastectomy, bilateral knee replacements, bilateral shoulder surgeries, bilateral cateract surgeries, surgery on nose to remove mrsa 2010, left rotator cuff repair 07/25/16 Past Anesthesia/Blood Transfusion Reactions: No Reported Reaction Past Psychological History: No Psychological Hx Reported Smoking Status: Never smoker Past Alcohol Use History: None Reported Past Drug Use History: None Reported - Past Family History Mother Family Medical History: Hypertension Father Family Medical History: Diabetes Mellitus Medications and Allergies Home Medications Medication Instructions Recorded Confirmed Type Apixaban [Eliquis] 5 mg PO BID 06/22/21 07/17/21 History Acetaminophen [Tylenol Arthritis] 650 mg PO Q8H PRN 07/17/21 07/17/21 History Losartan Potassium 50 mg PO DAILY 07/17/21 07/17/21 History Allergies Allergy/AdvReac Type Severity Reaction Status Date / Time amoxicillin Allergy Swelling Verified 07/17/21 17:56 of Lips cinnamon Allergy Rash/Hives Verified 07/17/21 17:56 Iodinated Contrast Media Allergy Anaphylaxis Verified 07/17/21 17:56 [Iodinated Contrast Media - IV Dye] latex Allergy Rash/Hives Verified 07/17/21 17:56 venom-honey bee Allergy Swelling/Pa Verified 07/17/21 17:56 ralysis Physical Exam Vitals: Vital Signs Temp Pulse Resp BP BP Pulse Ox 07/17/21 19:00 76 106/70 96 07/17/21 18:30 76 119/70 95 07/17/21 18:17 82 18 95 07/17/21 18:00 118 H 20 94/78 96 07/17/21 17:59 18 94/78 07/17/21 17:30 137 H 20 97/84 95 07/17/21 17:00 146 H 20 127/89 97 07/17/21 16:09 107/87 07/17/21 16:00 113 H 18 87/68 96 07/17/21 15:50 140 H 18 75/58 96 07/17/21 15:47 122 H 18 84/37 98 07/17/21 15:04 97.6 F 120 H 18 97/74 96 Intake and Output 07/17/21 07/17/21 07/17/21 06:59 14:59 22:59 Other: Weight 113.398 kg Results CBC & Chem 7: 07/17/21 16:05 07/17/21 16:05 Labs: Abnormal Lab Results - Last 24 Hours (Table) 07/17/21 07/17/21 07/17/21 Range/Units 16:05 16:05 19:50 Sodium 136 L (137-145) mmol/L Glucose 126 H (74-99) mg/dL Total Bilirubin 1.6 H (0.2-1.3) mg/dL AST 40 H (14-36) U/L Alkaline Phosphatase 137 H (38-126) U/L Troponin I 0.813 H* 1.440 H* (0.000-0.034) ng/mL Total Protein 6.2 L (6.3-8.2) g/dL Albumin 3.4 L (3.5-5.0) g/dL
[2021-07-17 23:59] LABS: Appearance,Urine Cloudy (Clear); Bacteria,Urine Moderate /hpf; Bilirubin,Urine Negative (Negative); Blood,Urine Negative (Negative); Color,Urine Yellow; Glucose,Urine (UA) Negative (Negative); Ketones,Urine Trace (Negative); Leukocyte Esterase,Urine Trace (Negative); Mucus,Urine Moderate /hpf; Nitrite,Urine Negative (Negative); PH, Urine 5.5 (5.0-8.0); Protein,Urine 1+ (Negative); RBC,Urine 2 /hpf (0-5); Specific Gravity,Urine 1.026 (1.001-1.035); Squamous Epithelial Cell,Urine 2 /hpf (0-4); Urobilinogen,Urine <2.0 mg/dL (<2.0); WBC,Urine 11 /hpf (0-5)
[2021-07-18] MEDS ORDERED: APIXABAN 5 MG TAB PO STA (00:13)
[2021-07-18] MEDS: AMIODARONE 450 MG in DEXTROSE 5% IN WATER 250 ML IV SCH ×4 (00:47→16:11)
[2021-07-18 07:08] LABS: Basophils % (A) 1 %; Eosinophils # (A) 0.1 k/uL (0-0.7); Eosinophils % (A) 2 %; HCT 34.5 % (34.0-46.0); HGB 11.2 gm/dL (11.4-16.0); Lymphocytes # (A) 1.3 k/uL (1.0-4.8); Lymphocytes % (A) 24 %; MCH 28.4 pg (25.0-35.0); MCHC 32.3 g/dL (31.0-37.0); Mean Platelet Volume 8.6; Monocytes # (A) 0.3 k/uL (0-1.0); Monocytes % (A) 6 %; Neutrophils # (A) 3.5 k/uL (1.3-7.7); Neutrophils % (A) 65 %; Platelet Count 145 k/uL (150-450); RBC 3.92 m/uL (3.80-5.40); RDW 13.6 % (11.5-15.5); WBC 5.4 k/uL (3.8-10.6)
[2021-07-18 07:17] LABS: Calcium 8.8 mg/dL (8.4-10.2); Potassium 3.4 mmol/L (3.5-5.1)
[2021-07-18] MEDS ORDERED: HEPARIN SOD,PORK IN 0.45% NACL 25,000 UNIT in 0.45% NACL 1 250ML.BAG IV ONE (08:05)
[2021-07-18] MEDS ORDERED: HEPARIN SODIUM 1,000 UN/ML (10ML VL) IV PRN (08:13)
[2021-07-18 08:39] LABS: Basophils % (A) 0 %; Eosinophils # (A) 0.2 k/uL (0-0.7); Eosinophils % (A) 4 %; HCT 34.3 % (34.0-46.0); HGB 11.4 gm/dL (11.4-16.0); Lymphocytes # (A) 1.1 k/uL (1.0-4.8); Lymphocytes % (A) 21 %; MCH 29.3 pg (25.0-35.0); MCHC 33.3 g/dL (31.0-37.0); MCV 88.1 fL (80.0-100.0); Mean Platelet Volume 8.7; Monocytes # (A) 0.3 k/uL (0-1.0); Monocytes % (A) 6 %; Neutrophils # (A) 3.6 k/uL (1.3-7.7); Neutrophils % (A) 68 %; Platelet Count 166 k/uL (150-450); RBC 3.89 m/uL (3.80-5.40); RDW 13.6 % (11.5-15.5); WBC 5.3 k/uL (3.8-10.6)
[2021-07-18 08:55] LABS: INR 1.1 (<1.2); Partial Thromboplastin Time 22.7 sec (22.0-30.0); Prothrombin Time 11.1 sec (9.0-12.0)
[2021-07-18] MEDS ORDERED: APIXABAN 5 MG TAB PO SCH ×2 (09:00→21:00)
[2021-07-18] MEDS ORDERED: HEPARIN SOD,PORK IN 0.45% NACL 25,000 UNIT in 0.45% NACL 1 250ML.BAG IV SCH (09:00)
[2021-07-18] MEDS ORDERED: Potassium Replacement Protocol 1 EACH MISC MISCELLANE PRN (09:17)
[2021-07-18] MEDS ORDERED: AMIODARONE 200 MG TAB PO SCH (09:30)
[2021-07-18] MEDS: APIXABAN 5 MG TAB PO SCH ×2 (09:31→20:58)
[2021-07-18] MEDS: POTASSIUM CHLORIDE ER 20 MEQ TAB.ER PO SCH ×2 (09:31→11:31)
--- NOTE | 2021-07-18 13:02 | P.CRDCN ---
History of Present Illness History of present illness: HISTORY OF PRESENTING ILLNESS This is a pleasant 70-year-old female past medical history significant for paroxysmal atrial fibrillation, hypertrophic cardiomyopathy, post conversion pauses, hypertension. She follows in the office with Dr. Vaughan We have been asked to see in consultation for atrial fibrillation with rapid ventricular response. Patient presents emergency department with complaints of palpitations and lightheadedness. She states on 07/17/2021) 1 PM she got up to the kitchen she came back and sat down in her living room, and had sudden onset palpitations or lightheadedness. She also had associated nausea and diarrhea.Patient recently underwent cryoablation of pulmonary veins 07/13/[address] Vaughan, was doing well after this. She denies any chest pain, syncope, presyncope, vomiting, abdominal pain, fever, cough, chills. She is a nonsmoker. She was given IV amiodarone 150 mg bolus and started on IV amiodarone drip. She was also started on IV heparin drip. She converted to sinus mechanism overnight. DIAGNOSTICS EKG reveals atrial fibrillation with rapid ventricular response, heart rate 125. Telemetry tracings indicate maintaining sinus mechanism heart rate 6070s Chest xray no acute cardiopulmonary process. Laboratory reviewed, CBC unremarkable, troponin 1.4, 3.2, 2.0, sodium 136, potassium 3.4, BUN 12, serum creatinine 0.7 Current home medications include Eliquis 5 mg twice a day, losartan 50 mg daily Echocardiogram 12/2019 revealed EF 55%, moderate concentric hypertrophy, interventricular septum is thickened with LVOT obstruction consistent with HOCM, severely dilated left atrium, trace aortic regurgitation REVIEW OF SYSTEMS At the time of my exam: CONSTITUTIONAL: Denies fever or chills. CARDIOVASCULAR: Positive palpitations, positive lightheadedness Denies chest pain, shortness of breath, orthopnea, PND RESPIRATORY: Denies cough. GASTROINTESTINAL: Positive diarrhea, positive nausea Denies abdominal pain, onstipation, vomiting. MUSCULOSKELETAL: Denies myalgias. NEUROLOGIC: Denies numbness, tingling, headacbe or weakness. ENDOCRINE: Denies fatigue, weight change, polydipsia or polyurina. GENITOURINARY: Denies burning, hematuria or urgency with micturation. HEMATOLOGIC: Denies history of anemia or bleeding. PHYSICAL EXAMINATION Blood pressure 122/84, heart rate 74, afebrile, oxygen saturation 70% on room air CONSTITUTIONAL: No apparent distress. HEENT: Head is normocephalic. Pupils are equal, round. Sclerae anicteric. Mucous membranes of the mouth are moist. No JVD. No carotid bruit. CHEST EXAMINATION: Lungs are clear to auscultation. No chest wall tenderness is noted on palpation or with deep breathing. HEART EXAMINATION: Regular rate and rhythm. S1, S2 heard. No murmurs, gallops or rub. ABDOMEN: Soft, nontender. Positive bowel sounds. EXTREMITIES: 2+ peripheral pulses, no lower extremity edema and no calf tenderness. NEUROLOGIC EXAMINATION: Patient is awake, alert and oriented x3. ASSESSMENT Paroxysmal atrial fibrillation with rapid ventricular response, on Eliquis Elevated troponin, not consistent with acute coronary syndrome, most likely elevated due to atrial fibrillation with RVR and recent ablation Hypertrophic cardiomyopathy Hypertension Hypokalemia PLAN Stop amiodarone IV, Start amiodarone PO 200mg BID will give 200mg BID for 2 weeks, then 200mg Daily for 2months Discontinue IV heparin, continue Eliquis 5 mg twice a day Continue patient's losartan Replace potassium per protocol Continue cardiac telemetry Further recommendations based on clinical course Nurse Practitioner note has been reviewed, I agree with a documented findings and plan of care. Patient was seen and examined. Past Medical History Past Medical History: Cancer, Hypertension, Osteoarthritis (OA) Additional Past Medical History / Comment(s): breast CA, no current problems w/hypertension, no longer takes medication History of Any Multi-Drug Resistant Organisms: MRSA Date of last positivie culture/infection: 2010 MDRO Source:: nasal Past Surgical History: Section, Cholecystectomy, Orthopedic Surgery Additional Past Surgical History / Comment(s): Bilateral mastectomy, bilateral knee replacements, bilateral shoulder surgeries, bilateral cateract surgeries, surgery on nose to remove mrsa 2010, left rotator cuff repair 07/25/16 Past Anesthesia/Blood Transfusion Reactions: No Reported Reaction Past Psychological History: No Psychological Hx Reported Smoking Status: Never smoker Past Alcohol Use History: None Reported Past Drug Use History: None Reported - Past Family History Mother Family Medical History: Hypertension Father Family Medical History: Diabetes Mellitus Medications and Allergies Home Medications Medication Instructions Recorded Confirmed Type Apixaban [Eliquis] 5 mg PO BID 06/22/21 07/17/21 History Acetaminophen [Tylenol Arthritis] 650 mg PO Q8H PRN 07/17/21 07/17/21 History Losartan Potassium 50 mg PO DAILY 07/17/21 07/17/21 History Allergies Allergy/AdvReac Type Severity Reaction Status Date / Time amoxicillin Allergy Swelling Verified 07/17/21 17:56 of Lips cinnamon Allergy Rash/Hives Verified 07/17/21 17:56 Iodinated Contrast Media Allergy Anaphylaxis Verified 07/17/21 17:56 [Iodinated Contrast Media - IV Dye] latex Allergy Rash/Hives Verified 07/17/21 17:56 venom-honey bee Allergy Swelling/Pa Verified 07/17/21 17:56 ralysis Physical Exam Vitals: Vital Signs Temp Pulse Pulse Resp BP BP Pulse Ox 07/18/21 07:00 75 115/75 97 07/18/21 06:30 69 13 142/65 07/18/21 06:00 73 14 133/67 07/18/21 05:30 72 145/72 07/18/21 05:00 70 124/70 07/18/21 04:30 67 12 122/72 07/18/21 04:00 98 F 69 14 121/65 07/18/21 03:30 73 15 118/58 07/18/21 03:00 74 15 124/64 07/18/21 02:30 76 16 121/70 07/18/21 02:00 75 12 122/77 07/18/21 01:30 77 13 118/60 07/18/21 01:00 72 14 132/60 07/18/21 00:30 76 14 130/58 07/18/21 00:00 97.6 F 74 11 L 128/62 97 07/17/21 23:30 70 12 129/71 98 07/17/21 23:00 97.8 F 72 15 125/62 99 07/17/21 22:30 17 127/86 99 07/17/21 21:44 97.9 F 72 18 108/67 97 07/17/21 21:00 98.1 F 108/76 97 07/17/21 20:00 97.9 F 77 16 121/87 97 07/17/21 19:00 76 106/70 96 07/17/21 18:53 98.2 F 73 13 139/79 98 07/17/21 18:30 76 119/70 95 07/17/21 18:17 82 18 95 07/17/21 18:00 118 H 20 94/78 96 07/17/21 17:59 18 94/78 07/17/21 17:30 137 H 20 97/84 95 07/17/21 17:00 146 H 20 127/89 97 07/17/21 16:09 107/87 07/17/21 16:00 113 H 18 87/68 96 07/17/21 15:50 140 H 18 75/58 96 07/17/21 15:47 122 H 18 84/37 98 07/17/21 15:04 97.6 F 120 H 18 97/74 96 Intake and Output 07/17/21 07/18/21 07/18/21 22:59 06:59 14:59 Intake Total 100 Output Total 300 Balance -200 Intake: Oral 100 Output: Urine 300 Other: Voiding Method Toilet # Voids 1 Weight 113.398 kg 115.2 kg Results 07/18/21 08:24 07/18/21 06:29 Cardiac Enzymes 07/17/21 07/17/21 07/17/21 Range/Units 16:05 16:05 19:50 AST 40 H (14-36) U/L Troponin I 0.813 H* 1.440 H* (0.000-0.034) ng/mL 07/18/21 Range/Units 00:13 AST (14-36) U/L Troponin I 3.220 H* (0.000-0.034) ng/mL Coagulation 07/17/21 Range/Units 16:05 PT 11.6 (9.0-12.0) sec APTT 26.2 (22.0-30.0) sec CBC 07/17/21 07/18/21 Range/Units 16:05 06:29 WBC 7.8 5.4 (3.8-10.6) k/uL RBC 4.14 3.92 (3.80-5.40) m/uL Hgb 11.9 11.2 L (11.4-16.0) gm/dL Hct 36.2 34.5 (34.0-46.0) % Plt Count 198 145 L (150-450) k/uL Comprehensive Metabolic Panel 07/17/21 07/18/21 Range/Units 16:05 06:29 Sodium 136 L 136 L (137-145) mmol/L Potassium 3.5 3.4 L (3.5-5.1) mmol/L Chloride 107 105 (98-107) mmol/L Carbon Dioxide 22 23 (22-30) mmol/L BUN 13 12 (7-17) mg/dL Creatinine 0.81 0.78 (0.52-1.04) mg/dL Glucose 126 H 100 H (74-99) mg/dL Calcium 8.9 8.8 (8.4-10.2) mg/dL AST 40 H (14-36) U/L ALT 27 (4-34) U/L Alkaline Phosphatase 137 H (38-126) U/L Total Protein 6.2 L (6.3-8.2) g/dL Albumin 3.4 L (3.5-5.0) g/dL Current Medications Generic Name Dose Route Start Last Admin Trade Name Freq PRN Reason Stop Dose Admin Apixaban 5 mg 07/18/21 09:00 Apixaban 5 Mg Tab PO BID ARCENIO Protocol Amiodarone HCl 450 mg/ 250 mls @ 16.667 mls/hr 07/18/21 00:00 07/18/21 00:47 Dextrose/Water IV 07/18/21 17:59 0.5 mg/min .Q15H ARCENIO 16.667 mls/hr Administration Protocol 0.5 MG/MIN Naloxone HCl 0.2 mg 07/17/21 17:40 Naloxone 0.4 Mg/Ml 1 Ml Vial IV Q2M PRN Opioid Reversal Intake and Output 07/17/21 07/18/21 07/18/21 22:59 06:59 14:59 Intake Total 100 Output Total 300 Balance -200 Intake: Oral 100 Output: Urine 300 Other: Voiding Method Toilet # Voids 1 Weight 113.398 kg 115.2 kg 07/18/21 06:29 07/18/21 06:29
[2021-07-18] MEDS: LOSARTAN 50 MG TAB PO SCH (15:26)
--- NOTE | 2021-07-18 17:26 | P.PN ---
Subjective Progress Note Date: 07/18/21 70-year-old female past medical history significant for paroxysmal atrial fibrillation, hypertrophic cardiomyopathy, post conversion pauses, hypertension. The patient recently underwent a cryoablation of the pulmonary veins on 07/13/[address] Vaughan, The patient reports that she had been doing well , At home on 07/17/21 she got up to go to the kitchen and when she came back and sat down in her living room, she suddenly felt palpitations and lightheadedness.EKG revealed A. fib with RVR at 125 bpm. Laboratory evaluation was remarkable for troponin of 0.813. as per the ED documentation, case was discussed with cardiology on-call who recommended amiodarone. Patient was admitted to hospital medicine service Patient seen and evaluated at bedside, today patient does not report any worse chente of his breathing or report any new significant chest pain. Patient remains in no acute distress. Patient questions and concerns addressed at bedside, proper counseling done. Plan discussed with nursing staff. Objective - Vital Signs Vital signs: Vital Signs Temp 98.1 F 07/18/21 16:00 Pulse 77 07/18/21 16:00 Resp 17 07/18/21 16:00 BP 139/83 07/18/21 16:00 Pulse Ox 99 07/18/21 16:00 Intake & Output 07/17/21 07/18/21 07/18/21 18:59 06:59 18:59 Intake Total 100 375 Output Total 300 100 Balance -200 275 Weight 113.398 kg 115.2 kg Intake: Intake, IV Titration 250 Amount Amiodarone 450 mg In 250 Dextrose 5% in Water 250 ml @ 0.5 MG/MIN 16.667 mls/hr IV .Q15H [facility] Rx#: [id number] Oral 100 125 Output: Urine 300 100 Other: Voiding Method Toilet Toilet # Voids 1 1 General: non toxic, no acute distress, alert oriented to time place and person Head: atraumatic, normocephalic, symmetric Eyes: no lid lesion], anicteric sclera Mouth: no lip lesion, mucus membranes moist Cardiovascular: Irregularly irregular heart rate, systolic murmur heard Lungs: Diminished breath sounds bilaterally Abdominal: soft, nontender to palpation, no guarding, no appreciable organomegaly Ext: no gross muscle atrophy, no edema extremities warm to suppose a positive Neuro: Alert oriented to time place and person, exam grossly nonfocal - Labs CBC & Chem 7: 07/18/21 08:24 07/18/21 06:29 Labs: Abnormal Lab Results - Last 24 Hours (Table) 07/17/21 07/17/21 07/18/21 Range/Units 19:50 23:43 00:13 Hgb (11.4-16.0) gm/dL Plt Count (150-450) k/uL Sodium (137-145) mmol/L Potassium (3.5-5.1) mmol/L Glucose (74-99) mg/dL Troponin I 1.440 H* 3.220 H* (0.000-0.034) ng/mL Urine Appearance Cloudy H (Clear) Urine Protein 1+ H (Negative) Urine Ketones Trace H (Negative) Ur Leukocyte Esterase Trace H (Negative) Urine WBC 11 H (0-5) /hpf Urine Bacteria Moderate H (None) /hpf Urine Mucus Moderate H (None) /hpf 07/18/21 07/18/21 07/18/21 Range/Units 06:29 06:29 08:24 Hgb 11.2 L (11.4-16.0) gm/dL Plt Count 145 L (150-450) k/uL Sodium 136 L (137-145) mmol/L Potassium 3.4 L (3.5-5.1) mmol/L Glucose 100 H (74-99) mg/dL Troponin I 2.080 H* (0.000-0.034) ng/mL Urine Appearance (Clear) Urine Protein (Negative) Urine Ketones (Negative) Ur Leukocyte Esterase (Negative) Urine WBC (0-5) /hpf Urine Bacteria (None) /hpf Urine Mucus (None) /hpf Microbiology - Last 24 Hours (Table) 07/17/21 23:43 Urine Culture - Preliminary Urine,Voided Assessment and Plan Assessment: Atrial fibrillation with RVR Patient with recent cryoablation of pulmonary veins done as an outpatient which failed, procedure done on 07/13/2021 Patient presented on 07/17/2021 with atrial fibrillation with RVR Patient status post amiodarone infusion, transitioned to oral amiodarone Continue Eliquis Possible plan for loop recorder implantation before dc Cardiology consulted and following Elevated troponin likely type II ischemia in the setting of A. fib with RVR Continue medical management as above Cardiology consulted and following. Hypertrophic cardiomyopathy Continue medical management Hypertension On amiodarone, losartan Due to prophylaxis: Eliquis CODE STATUS: Full code Discharge plan/next site of care: 1-2 days, pending hospital course once cleared by cardiology.
[2021-07-18 19:47] VITALS: RESP 16
[2021-07-18] MEDS: AMIODARONE 200 MG TAB PO SCH (20:59)
[2021-07-18] MEDS ORDERED: ACETAMINOPHEN TAB 325 MG TAB PO PRN (23:36)
[2021-07-19 03:51] VITALS: TEMP 97.7
[2021-07-19 06:48] LABS: Basophils % (A) 1 %; Eosinophils # (A) 0.2 k/uL (0-0.7); Eosinophils % (A) 4 %; HCT 33.1 % (34.0-46.0); Lymphocytes # (A) 1.1 k/uL (1.0-4.8); Lymphocytes % (A) 23 %; MCH 29.3 pg (25.0-35.0); MCHC 33.1 g/dL (31.0-37.0); MCV 88.5 fL (80.0-100.0); Mean Platelet Volume 8.9; Monocytes # (A) 0.3 k/uL (0-1.0); Monocytes % (A) 7 %; Neutrophils % (A) 65 %; Platelet Count 148 k/uL (150-450); RBC 3.74 m/uL (3.80-5.40); RDW 13.5 % (11.5-15.5); WBC 4.6 k/uL (3.8-10.6)
[2021-07-19 06:57] LABS: Calcium 8.9 mg/dL (8.4-10.2); Potassium 3.7 mmol/L (3.5-5.1)
[2021-07-19] MEDS: APIXABAN 5 MG TAB PO SCH (08:19)
[2021-07-19] MEDS: AMIODARONE 200 MG TAB PO SCH (08:19)
[2021-07-19] MEDS: LOSARTAN 50 MG TAB PO SCH (08:19)
[2021-07-19 08:22] VITALS: BP 141/83; PULSE 84
[2021-07-19] MEDS ORDERED: SODIUM CHLORIDE 0.9% 1,000 ML IV SCH (08:45)
[2021-07-19 09:39] LABS: Glucose,Whole Blood 93 mg/dL (75-99)
[2021-07-19] MEDS ORDERED: CLINDAMYCIN 900 MG in DEXTROSE 5% IN WATER 50 ML IVPB STA ×2 (10:32)
[2021-07-19] MEDS ORDERED: SODIUM CHLORIDE 0.9% 500 ML 500 ML IV ONE (10:36)
[2021-07-19] MEDS ORDERED: LIDOCAINE 1% INJ 10MG/ML (20 ML MDV) ONE (10:43)
[2021-07-19] MEDS ORDERED: LIDOCAINE 1% INJ 10MG/ML (20 ML MDV) SQ ONE (11:02)
--- NOTE | 2021-07-19 11:10 | P.PN ---
Subjective This is a pleasant 70-year-old female past medical history significant for paroxysmal atrial fibrillation, hypertrophic cardiomyopathy, post conversion pauses, hypertension. She follows in the office with Dr. Vaughan We have been asked to see in consultation for atrial fibrillation with rapid ventricular response. Patient presents emergency department 07/17/21 with complaints of palpitations and lightheadedness. She states on 07/17/2021) 1 PM she got up to the kitchen she came back and sat down in her living room, and had sudden onset palpitations or lightheadedness. She also had associated nausea and diarrhea.Patient recently underwent cryoablation of pulmonary veins 07/13/[address] Vaughan, was doing well after this. She denies any chest pain, syncope, presyncope, vomiting, abdominal pain, fever, cough, chills. She is a nonsmoker. She was given IV amiodarone 150 mg bolus and started on IV amiodarone drip. She was also started on IV heparin drip. She converted to sinus mechanism 07/17 overnight 07/19/21: Patient seen and examined at bedside, no acute distress. She denies shortness of breath or chest pain. She is maintaining sinus mechanism heart rate 70s80s. She is currently maintained on amiodarone 200 mg twice a day, Eliquis 5 mg twice a day, losartan 50 mg daily. Last reviewed, WBC 4.6, hemoglobin 11, platelets 148, sodium 137, potassium 3.7, BUN 15, serum creatinine 0.8 PHYSICAL EXAMINATION Blood pressure 141/83, heart rate 84, afebrile, saturations greater than 92% on room air CONSTITUTIONAL: No apparent distress. HEENT:Neck Supple. No JVD. CHEST EXAMINATION: Lungs are clear to auscultation. No chest wall tenderness is noted on palpation or with deep breathing. HEART EXAMINATION: Regular rate and rhythm. S1, S2 heard. No murmurs, gallops or rub. ABDOMEN: Soft, nontender. Positive bowel sounds. EXTREMITIES: 2+ peripheral pulses, no lower extremity edema and no calf tenderness. NEUROLOGIC EXAMINATION: Patient is awake, alert and oriented x3. ASSESSMENT Paroxysmal atrial fibrillation with rapid ventricular response, on Eliquis Elevated troponin, not consistent with acute coronary syndrome, most likely elevated due to atrial fibrillation with RVR and recent ablation Hypertrophic cardiomyopathy Hypertension Hypokalemia, improved PLAN -Plan for loop recorder placement today with Dr. Vaughan -I have discussed the risks, benefits and alternative therapies for the above- mentioned procedure and for both sedation/analgesia as they pertain to this patient. The patient has indicated understanding and acceptance of the risks and procedures discussed. Questions have been answered appropriately and she is agreeable to move forward with the above-stated procedure. -Continue amiodarone PO 200mg BID will give 200mg BID for 2 weeks, then 200mg Daily for 2months -Continue Eliquis 5 mg twice a day -Continue patient's losartan -From a cardiology perspective, patient can be discharged home after loop recorder placement, follow up with Dr. Vaughan outpatient Nurse Practitioner note has been reviewed, I agree with a documented findings and plan of care. Patient was seen and examined. Objective - Vital Signs Vital signs: Vital Signs Temp 98.1 F 07/18/21 12:00 Pulse 67 07/18/21 12:00 Resp 16 07/18/21 12:00 BP 154/75 07/18/21 12:00 Pulse Ox 97 07/18/21 12:00 Intake & Output 07/17/21 07/18/21 07/18/21 18:59 06:59 18:59 Intake Total 100 Output Total 300 Balance -200 Weight 113.398 kg 115.2 kg Intake: Oral 100 Output: Urine 300 Other: Voiding Method Toilet Toilet # Voids 1 1 - Labs CBC & Chem 7: 07/19/21 05:24 07/19/21 05:24 Labs: Abnormal Lab Results - Last 24 Hours (Table) 07/17/21 07/17/21 07/17/21 Range/Units 16:05 16:05 19:50 Hgb (11.4-16.0) gm/dL Plt Count (150-450) k/uL Sodium 136 L (137-145) mmol/L Potassium (3.5-5.1) mmol/L Glucose 126 H (74-99) mg/dL Total Bilirubin 1.6 H (0.2-1.3) mg/dL AST 40 H (14-36) U/L Alkaline Phosphatase 137 H (38-126) U/L Troponin I 0.813 H* 1.440 H* (0.000-0.034) ng/mL Total Protein 6.2 L (6.3-8.2) g/dL Albumin 3.4 L (3.5-5.0) g/dL Urine Appearance (Clear) Urine Protein (Negative) Urine Ketones (Negative) Ur Leukocyte Esterase (Negative) Urine WBC (0-5) /hpf Urine Bacteria (None) /hpf Urine Mucus (None) /hpf 07/17/21 07/18/21 07/18/21 Range/Units 23:43 00:13 06:29 Hgb 11.2 L (11.4-16.0) gm/dL Plt Count 145 L (150-450) k/uL Sodium (137-145) mmol/L Potassium (3.5-5.1) mmol/L Glucose (74-99) mg/dL Total Bilirubin (0.2-1.3) mg/dL AST (14-36) U/L Alkaline Phosphatase (38-126) U/L Troponin I 3.220 H* (0.000-0.034) ng/mL Total Protein (6.3-8.2) g/dL Albumin (3.5-5.0) g/dL Urine Appearance Cloudy H (Clear) Urine Protein 1+ H (Negative) Urine Ketones Trace H (Negative) Ur Leukocyte Esterase Trace H (Negative) Urine WBC 11 H (0-5) /hpf Urine Bacteria Moderate H (None) /hpf Urine Mucus Moderate H (None) /hpf 07/18/21 07/18/21 Range/Units 06:29 08:24 Hgb (11.4-16.0) gm/dL Plt Count (150-450) k/uL Sodium 136 L (137-145) mmol/L Potassium 3.4 L (3.5-5.1) mmol/L Glucose 100 H (74-99) mg/dL Total Bilirubin (0.2-1.3) mg/dL AST (14-36) U/L Alkaline Phosphatase (38-126) U/L Troponin I 2.080 H* (0.000-0.034) ng/mL Total Protein (6.3-8.2) g/dL Albumin (3.5-5.0) g/dL Urine Appearance (Clear) Urine Protein (Negative) Urine Ketones (Negative) Ur Leukocyte Esterase (Negative) Urine WBC (0-5) /hpf Urine Bacteria (None) /hpf Urine Mucus (None) /hpf Microbiology - Last 24 Hours (Table) 07/17/21 23:43 Urine Culture - Preliminary Urine,Voided
--- NOTE | 2021-07-19 11:47 | P.EPPROC ---
- EP Procedure Note Electrophysiology Procedure Note: Loop monitor implant Primary physicians: Notcher: Dr. Vaughan Indication: Sick Sinus Syndrome and sinus pauses/PAF/HCM Patient was brought to the EP lab in a fasting state. Written informed consent was obtained prior to the procedure. The left pectoral area was prepped and draped per protocol. Intravenous antibiotic was administered preoperatively. A subcutaneous Loop monitor was implanted successfully and the wound was closed per protocol. The device was programmed to detect significant igor- arrhythmic and tachy-arrhythmic events, per protocol. Device and programming details: Bradycardia programming Patient underwent EP procedure under conscious sedation/moderate sedation, monitoring of the level of consciousness and physiologic parameters including but not limited to vital signs and oxygenation. Patient tolerated the procedure well without any acute complications. Start time: 1058 Stop time: 1111
--- NOTE | 2021-07-19 22:24 | P.DS ---
Providers Date of admission: 07/17/21 17:42 Expected date of discharge: 07/19/21 Attending physician: Amos Stiles MD Consults: 07/17/21 17:41 Consult Physician Urgent Consulting Provider: [facility] Consult Reason/Comments: afib with rvr, recent ablation, HOCM Do you want consulting provider notified?: Yes Primary care physician: Ida Shaffer Hospital Course: Discharge Diagnosis: Paroxysmal atrial fibrillation with rapid ventricular response status post cryoablation NSTEMI type II secondary to atrial fibrillation with rapid ventricular response on recent cryoablation Hypertrophic cardiomyopathy Hypertension Morbid obesity with BMI 42.5 Hospital Course: Patient is a 70-year-old female with a past medical history of A. fib on Eliquis status post recent cryoablation with Dr. Juárez, hypertrophic cardiomyopathy, and hypertension who initially presented to the ER with complaints of dizziness and diaphoresis. In the ER she underwent an extensive evaluation was ultimately found have A. fib with RVR with relatively hypotensive. Initially try rate controlled with Toprol is ineffective and she was started on IV amiodarone. She is on have an elevated troponin. Cardiology was contacted and felt that her troponin was likely secondary to her recent cryoablation. He was admitted for further monitoring seen by cardiology. She was taken off of IV amiodarone started on oral amiodarone. Her heparin was discontinued and she was transitioned back to her home Eliquis. She converted to normal sinus rhythm insulin maintaining this. She underwent loop recorder implantation. She was determined stable for discharge home. Follow-up: She will have an amiodarone taper. She'll follow up with Dr. Vaughan in 1 week in the outpatient setting. She'll continue on her losartan and her Eliquis. She will also follow-up with Dr. Shaffer. Patient seen and examined at bedside. No additional chest discomfort, palpitations, or shortness of breath. Doing well. All questions answered. Vital signs reviewed and stable. General: non toxic, no distress, appears at stated age Derm: warm, dry Head: atraumatic, normocephalic, symmetric Eyes: EOMI, no lid lag, anicteric sclera Mouth: no lip lesion, mucus membranes moist Cardiovascular: S1S2 reg, no murmur, positive posterior tibial pulse bilateral, Lungs: CTA bilateral, no rhonchi, no rales , no accessory muscle use Abdominal: soft, nontender to palpation, no guarding, no appreciable organomegaly Ext: no gross muscle atrophy, no edema, no contractures Neuro: CN II-XI grossly intact, no focal neuro deficits Psych: Alert, oriented, appropriate affect A total of 25 minutes of time were spent preparing this complex discharge summa ry . Patient Condition at Discharge: Stable Plan - Discharge Summary Discharge Rx Participant: No New Discharge Prescriptions: New Amiodarone [Cordarone] See Taper PO BID 60 Days #120 tab Continue Losartan Potassium 50 mg PO DAILY Apixaban [Eliquis] 5 mg PO BID Discontinued Acetaminophen [Tylenol Arthritis] 650 mg PO Q8H PRN PRN Reason: Pain Or Fever > 100.5 Discharge Medication List Apixaban [Eliquis] 5 mg PO BID 06/22/21 [History] Losartan Potassium 50 mg PO DAILY 07/17/21 [History] Amiodarone [Cordarone] See Taper PO BID 60 Days #120 tab 07/18/21 [Rx] Follow up Appointment(s)/Referral(s): Gregory Vaughan MD [STAFF PHYSICIAN] - 2 Weeks (office will notify you with an appointment time.) Charles Loaiza MD [REFERRING] - As Needed Ida Shaffer MD [Primary Care Provider] - 1-2 days Patient Instructions/Handouts: Amiodarone (By mouth), Cardiac Loop Recorder Insertion (DC) Activity/Diet/Wound Care/Special Instructions: Take amiodarone 200mg Twice a day for 2 weeks Then Take amiodarone 200mg DAILY for 2 months Further changes by Dr. Vaughan in the office Discharge Disposition: HOME SELF-CARE
[2021-07-20] MEDS ORDERED: CLINDAMYCIN 600 MG in SODIUM CHLORIDE 0.9% 250 ML IRRIGATION PRN (07:00)
== END 2021-07-19 12:40 | disposition home or self-care (01) | DRG 260 ==
LOC: EC 15:03 → 3SCARD 17:42
PROVIDERS: ADMIT Internal Medicine; ATTEND Internal Medicine
PROC: 0JH632Z Insertion of Monitoring Device into Chest Subcutaneous Tissue and Fascia, Percutaneous Approach (ICD-10-PCS; principal; 2021-07-17)
PROC: 4A12X4Z Monitoring of Cardiac Electrical Activity, External Approach (ICD-10-PCS; 2021-07-17)
PROC: 5A2204Z Restoration of Cardiac Rhythm, Single (ICD-10-PCS; 2021-07-18)
DX: I48.0 Paroxysmal atrial fibrillation (principal); I21.A1 Myocardial infarction type 2; Z68.41 Body mass index [BMI] 40.0-44.9, adult; Z20.822 Contact with and (suspected) exposure to COVID-19; I49.5 Sick sinus syndrome; E66.01 Morbid (severe) obesity due to excess calories; I35.1 Nonrheumatic aortic (valve) insufficiency; I42.1 Obstructive hypertrophic cardiomyopathy; R53.83 Other fatigue; I95.9 Hypotension, unspecified; E87.6 Hypokalemia; I10 Essential (primary) hypertension; Z79.01 Long term (current) use of anticoagulants; Z79.899 Other long term (current) drug therapy; Z85.3 Personal history of malignant neoplasm of breast; Z86.14 Personal history of Methicillin resistant Staphylococcus aureus infection; Z90.13 Acquired absence of bilateral breasts and nipples; Z96.653 Presence of artificial knee joint, bilateral; Z88.1 Allergy status to other antibiotic agents; Z91.041 Radiographic dye allergy status; Z91.02 Food additives allergy status; Z91.040 Latex allergy status; Z91.030 Bee allergy status; Z90.49 Acquired absence of other specified parts of digestive tract; Z98.42 Cataract extraction status, left eye; Z98.41 Cataract extraction status, right eye; Z96.1 Presence of intraocular lens
CPT/HCPCS: 33285; 36415; 71046; 80048; 80053; 81001; 83605; 83735; 84443; 84484; 85025; 85610; 85730; 87077; 87086; 87186; 87635; 93005; 96361; 96374; 99291

== ENCOUNTER 2021-09-04 21:05 | Inpatient (IN) | payer MEDICARE ==
--- NOTE | 2021-09-04 22:12 | ED ---
Female Urogenital HPI - General Chief complaint: Extremity Problem,Nontraumatic Stated complaint: Groin Pain Time Seen by Provider: 09/04/21 21:40 Source: patient, EMS, RN notes reviewed, old records reviewed Mode of arrival: EMS Limitations: no limitations - History of Present Illness Initial comments: This is a 70-year-old female to the ER today. Patient resents today for evaluation regards to right groin pain significant right leg pain and swelling that she noticed today. The swelling seems to have diminished but there is still some tenderness in her right groin. Patient has no recent significant medical history about 2 months ago patient did have heart catheterization and ablation accessed through the right groin. She otherwise has no recent travel history sick contacts no nausea vomiting or diarrhea no fevers. MD Complaint: pelvic pain, other (Right groin pain) -: hour(s) Location: other (Right groin right leg) Severity: moderate Severity scale (1-10): 4 Quality: sharp, dull Consistency: constant Improves with: none Worsens with: none Patient : No Associated Symptoms: denies other symptoms - Related Data Sexually active: No Home Medications Medication Instructions Recorded Confirmed Apixaban [Eliquis] 5 mg PO BID 06/22/21 09/04/21 Losartan Potassium 50 mg PO HS 07/17/21 09/04/21 Acyclovir 800 mg PO QID 09/04/21 09/04/21 Amiodarone [Cordarone] 100 mg PO BID 09/04/21 09/04/21 Metoprolol Succinate [Toprol XL] 25 mg PO DAILY 09/04/21 09/04/21 Allergies Allergy/AdvReac Type Severity Reaction Status Date / Time amoxicillin Allergy Swelling Verified 09/04/21 23:12 of Lips cinnamon Allergy Rash/Hives Verified 09/04/21 23:12 Iodinated Contrast Media Allergy Anaphylaxis Verified 09/04/21 23:12 [Iodinated Contrast Media - IV Dye] latex Allergy Rash/Hives Verified 09/04/21 23:12 venom-honey bee Allergy Swelling/Pa Verified 09/04/21 23:12 ralysis Review of Systems ROS Statement: Those systems with pertinent positive or pertinent negative responses have been documented in the HPI. ROS Other: All systems not noted in ROS Statement are negative. Past Medical History Past Medical History: Cancer, Hypertension, Osteoarthritis (OA) Additional Past Medical History / Comment(s): breast CA, no current problems w/hypertension, no longer takes medication History of Any Multi-Drug Resistant Organisms: MRSA Date of last positivie culture/infection: 2010 MDRO Source:: nasal Past Surgical History: Section, Cholecystectomy, Orthopedic Surgery Additional Past Surgical History / Comment(s): Bilateral mastectomy, bilateral knee replacements, bilateral shoulder surgeries, bilateral cateract surgeries, surgery on nose to remove mrsa 2010, left rotator cuff repair 07/25/16, cryo ablasion. Past Anesthesia/Blood Transfusion Reactions: No Reported Reaction Past Psychological History: No Psychological Hx Reported Smoking Status: Never smoker Past Alcohol Use History: None Reported Past Drug Use History: None Reported - Past Family History Mother Family Medical History: No Reported History Father Family Medical History: Diabetes Mellitus General Exam Limitations: no limitations General appearance: alert, in no apparent distress Head exam: Present: atraumatic, normocephalic, normal inspection Eye exam: Present: normal appearance, PERRL, EOMI. Absent: scleral icterus, conjunctival injection, periorbital swelling ENT exam: Present: normal exam, mucous membranes moist Neck exam: Present: normal inspection. Absent: tenderness, meningismus, lymphadenopathy Respiratory exam: Present: normal lung sounds bilaterally. Absent: respiratory distress, wheezes, rales, rhonchi, stridor Cardiovascular Exam: Present: regular rate, normal rhythm, normal heart sounds. Absent: systolic murmur, diastolic murmur, rubs, gallop, clicks GI/Abdominal exam: Present: soft, normal bowel sounds. Absent: distended, tenderness, guarding, rebound, rigid Extremities exam: Present: normal inspection, full ROM, normal capillary refill. Absent: tenderness, pedal edema, joint swelling, calf tenderness Back exam: Present: normal inspection Neurological exam: Present: alert, oriented X3, CN II-XII intact Psychiatric exam: Present: normal affect, normal mood Skin exam: Present: warm, dry, intact, normal color. Absent: rash Course Vital Signs 09/04/21 21:15 Temperature 98.0 F Pulse Rate 60 Respiratory 18 Rate Blood Pressure 141/80 O2 Sat by Pulse 97 Oximetry - Reevaluation(s) Reevaluation #1: 09/05/21 00:02 Medical record is reviewed Reevaluation #2: 09/05/21 00:02 Patient is informed results questions answered Reevaluation #3: 09/05/21 00:02 Patient is in no distress has good blood flow to right lower extremity Medical Decision Making - Medical Decision Making 70 female to the emergency department for evaluation of right groin pain positive pseudoaneurysm right leg. Patient be admitted for both cardiology and after surgery to reevaluate - Radiology Data Radiology results: report reviewed (US shows right groin pseudoaneurysm), image reviewed Disposition Clinical Impression: Pseudoaneurysm of right femoral artery Disposition: ADMITTED IP TO THIS [facility] Condition: Good Is patient prescribed a controlled substance at d/c from ED?: No Referrals: Ida Shaffer MD [Primary Care Provider] - 1-2 days
[2021-09-04] MEDS ORDERED: SODIUM CHLORIDE 0.9% 1,000 ML IV STA (23:27)
[2021-09-04] MEDS ORDERED: NALOXONE 0.4 MG/ML 1 ML VIAL IV PRN (23:45)
[2021-09-04] MEDS ORDERED: ONDANSETRON 4 MG/2 ML VIAL IVP PRN (23:45)
[2021-09-04] MEDS ORDERED: LORazepam 2 MG/ML INJ IV PRN (23:45)
--- NOTE | 2021-09-04 23:48 | US ---
EXAMINATION TYPE: US lower ext pseudo artery RT DATE OF EXAM: 09/04/2021 COMPARISON: NONE CLINICAL HISTORY: pain. Patient feels pain and palpable area within the right groin. Patient states s he had procedure 2 months ago within the right groin area, exact procedure unknown per patient and or dering physician. EXAM PERFORMED: Grayscale and color Doppler duplex imaging performed of the groin. SIDE PERFORMED: Right Color and Waveform Doppler performed to assess for the presence of pseudoaneurysm. Exam is limited due to edema and large complex area visualized. Is there ultrasound evidence of a pseudoaneurysm: Complex area with partial arterial vascularity see n within the right groin measuring 7.3 x 7.2 x 6.8 cm. Neck not definitely identified. Difficult to v isualize vessels in sagittal view. Right CABLE PLACER PS 285.8 cm/s. Is there evidence of AV shunting: Not seen. IMPRESSION: There is arterial flow in the femoral artery. There is a large 7 cm complex mass in the right groin t hat could be a partly thrombosed pseudoaneurysm.
[2021-09-04] MEDS: SODIUM CHLORIDE 0.9% 1,000 ML IV SCH (23:54)
[2021-09-05 00:15] LABS: Basophils % (A) 0 %; Eosinophils # (A) 0.1 k/uL (0-0.7); Eosinophils % (A) 1 %; HCT 37.4 % (34.0-46.0); HGB 11.9 gm/dL (11.4-16.0); Lymphocytes # (A) 0.7 k/uL (1.0-4.8); Lymphocytes % (A) 10 %; MCH 28.8 pg (25.0-35.0); MCHC 31.9 g/dL (31.0-37.0); MCV 90.1 fL (80.0-100.0); Mean Platelet Volume 8.6; Monocytes # (A) 0.3 k/uL (0-1.0); Monocytes % (A) 4 %; Neutrophils % (A) 84 %; Platelet Count 181 k/uL (150-450); RBC 4.15 m/uL (3.80-5.40); RDW 13.4 % (11.5-15.5); WBC 7.1 k/uL (3.8-10.6)
[2021-09-05] MEDS: MORPHINE SULFATE 4 MG/ML SYRINGE IV PRN ×6 (00:15→22:31)
[2021-09-05 00:20] LABS: INR 1.1 (<1.2); Prothrombin Time 11.3 sec (9.0-12.0)
[2021-09-05 00:21] LABS: Appearance,Urine Cloudy (Clear); Bacteria,Urine Many /hpf; Bilirubin,Urine Negative (Negative); Blood,Urine Negative (Negative); Color,Urine Yellow; Glucose,Urine (UA) Negative (Negative); Hyaline Casts,Urine 8 /lpf (0-2); Ketones,Urine Trace (Negative); Leukocyte Esterase,Urine Moderate (Negative); Mucus,Urine Occasional /hpf; Nitrite,Urine Positive (Negative); PH, Urine 5.5 (5.0-8.0); Protein,Urine Trace (Negative); RBC,Urine 1 /hpf (0-5); Specific Gravity,Urine 1.031 (1.001-1.035); Squamous Epithelial Cell,Urine 1 /hpf (0-4); Urobilinogen,Urine <2.0 mg/dL (<2.0); WBC,Urine 17 /hpf (0-5)
[2021-09-05 00:25] LABS: Albumin 3.6 g/dL (3.5-5.0); Calcium 9.3 mg/dL (8.4-10.2); Magnesium 1.7 mg/dL (1.6-2.3); Phosphorus 3.7 mg/dL (2.5-4.5); Potassium 3.5 mmol/L (3.5-5.1); Total Bilirubin 0.8 mg/dL (0.2-1.3); Total Protein 6.3 g/dL (6.3-8.2)
[2021-09-05] MEDS: ACETAMINOPHEN TAB 325 MG TAB PO PRN (03:15)
[2021-09-05] MEDS: LOSARTAN 50 MG TAB PO SCH ×2 (03:33→20:50)
--- NOTE | 2021-09-05 05:25 | P.HPIM ---
History of Present Illness H&P Date: 09/05/21 Chief Complaint: Swelling and pain and right groin 70-year-old female with HOCM, A. fib status post ablation Patient comes in with sudden onset swelling and worsening pain in her right groin. Symptoms started about 2-3 days ago with some pain and discomfort in the right groin without any swelling today she seen her doctor who thought that she might be having some shingles again there was no swelling at time of evaluation with her primary care doctor. Upon arrival back home she took her first dose of acyclovir and then suddenly noticed a big bulge and worsening of pain in her right groin she denies any ecchymosis denies any numbness however she is reporting difficulty in moving her right leg. Patient had ablation for A. fib about 2 months ago with axis to the right groin. Otherwise patient reports that she is in good health denies any chest pain or trouble breathing denies any dizziness lightheadedness or shortness of breath denies any fevers or chills. Ultrasound duplex of the right groin done showed 7 cm complex mass in the right groin with partly thrombosed pseudoaneurysm patient admitted for vascular surgery evaluation Blood work overall unremarkable Review of Systems Pertinent positives as noted in HPI. All other systems were reviewed and are negative Past Medical History Past Medical History: Cancer, Hypertension, Osteoarthritis (OA) Additional Past Medical History / Comment(s): breast CA, loop recorder, HCM, A fib (Loop monitor) History of Any Multi-Drug Resistant Organisms: MRSA Date of last positivie culture/infection: 2010 MDRO Source:: nasal Past Surgical History: Section, Cholecystectomy, Orthopedic Surgery Additional Past Surgical History / Comment(s): Bilateral mastectomy, bilateral knee replacements, bilateral shoulder surgeries, bilateral cateract surgeries, surgery on nose, mrsa 2010, left rotator cuff repair 07/25/16, cryo ablasion. Past Anesthesia/Blood Transfusion Reactions: No Reported Reaction Past Psychological History: No Psychological Hx Reported Smoking Status: Never smoker Past Alcohol Use History: None Reported Past Drug Use History: None Reported - Past Family History Mother Family Medical History: No Reported History Father Family Medical History: Diabetes Mellitus Medications and Allergies Home Medications Medication Instructions Recorded Confirmed Type Apixaban [Eliquis] 5 mg PO BID 06/22/21 09/04/21 History Losartan Potassium 50 mg PO HS 07/17/21 09/04/21 History Acyclovir 800 mg PO QID 09/04/21 09/04/21 History Amiodarone [Cordarone] 100 mg PO BID 09/04/21 09/04/21 History Metoprolol Succinate [Toprol XL] 25 mg PO DAILY 09/04/21 09/04/21 History Allergies Allergy/AdvReac Type Severity Reaction Status Date / Time amoxicillin Allergy Swelling Verified 09/04/21 23:12 of Lips cinnamon Allergy Rash/Hives Verified 09/04/21 23:12 Iodinated Contrast Media Allergy Anaphylaxis Verified 09/04/21 23:12 [Iodinated Contrast Media - IV Dye] latex Allergy Rash/Hives Verified 09/04/21 23:12 venom-honey bee Allergy Swelling/Pa Verified 09/04/21 23:12 ralysis Physical Exam Vitals: Vital Signs Temp Pulse Resp BP Pulse Ox 09/05/21 00:20 61 16 154/81 95 09/04/21 21:15 98.0 F 60 18 141/80 97 Intake and Output 09/04/21 09/04/21 09/05/21 14:59 22:59 06:59 Other: Weight 111.13 kg 111.13 kg Constitutional: No acute distress, conversant, pleasant Eyes: Anicteric sclerae, moist conjunctiva, Pupils equal round reactive to light ENMT: NC/AT Oropharynx clear, no erythema, or exudates Neck: Supple, no masses, or JVD No carotid bruits No thyromegaly Lungs: Clear to auscultation Clear to percussion Normal respiratory effort, no accessory muscle use Cardiovascular: Heart regular in rate and rhythm, Systolic murmurs, no gallops, or rubs No peripheral edema Abdominal: Soft Nontender, no guarding, rebound or rigidity Abdomen moving with respiration Normoactive bowel sounds No hepatomegaly, No splenomegaly No palpable mass No abdominal wall hernia noted Skin: Normal temperature, tone, texture, turgor No induration No subcutaneous nodules No rash, lesions No ulcers Extremities: Right groin firm bulging mass no surrounding ecchymosis or any skin changes, warm to the touch, slight discomfort with palpation No digital cyanosis No clubbing Pedal pulses intact and symmetrical bilaterally Radial pulses intact and symmetrical No calf tenderness Psychiatric: Alert and oriented to person, place and time Appropriate affect fair judgement Neuro Muscles Strength 5/5 in bilateral upper extremity and left lower extremity patient is not moving her right lower extremity due to pain and feel ing weak Sensation to light touch grossly present throughout Cranial nerves II-XII grossly intact No focal sensory deficits Lymphatics: no palpable cervical or supraclavicular , or inguinal lymph nodes Results CBC & Chem 7: 09/04/21 23:51 09/04/21 23:51 Labs: Abnormal Lab Results - Last 24 Hours (Table) 09/04/21 09/04/21 09/04/21 Range/Units 23:51 23:51 23:51 Lymphocytes # 0.7 L (1.0-4.8) k/uL BUN 21 H (7-17) mg/dL Glucose 163 H (74-99) mg/dL Alkaline Phosphatase 161 H (38-126) U/L Urine Appearance Cloudy H (Clear) Urine Protein Trace H (Negative) Urine Ketones Trace H (Negative) Urine Nitrite Positive H (Negative) Ur Leukocyte Esterase Moderate H (Negative) Urine WBC 17 H (0-5) /hpf Urine Bacteria Many H (None) /hpf Hyaline Casts 8 H (0-2) /lpf Urine Mucus Occasional H (None) /hpf Thrombosis Risk Factor Assmnt - Choose All That Apply Each Factor Represents 1 point: Obesity (BMI >25) Each Risk Factor Represents 2 Points: Age 61-74 years Thrombosis Risk Factor Assessment Total Risk Factor Score: 3 Thrombosis Risk Factor Assessment Level: Moderate Risk Assessment and Plan Assessment: Partially thrombosed , 7 cm pseudoaneurysm in the right groin Pain control Every hour neurovascular assessment of the right lower extremity Vascular surgery evaluation for possible surgical repair cardiology consultation IV fluid hydration with normal saline Hold blood thinners Chronic conditions A. fib status post ablation, hold blood thinners for possible surgical intervention HOCM, continue with home blood pressure meds Patient's full code DVT prophylaxis mechanical, due to possible surgical intervention Anticipated length of stay more than 2 midnights
[2021-09-05] MEDS: METOPROLOL SUCCINATE (ER) 25 MG TAB.ER.24H PO SCH (07:23)
[2021-09-05] MEDS: SODIUM CHLORIDE 0.9% 1,000 ML IV SCH ×3 (07:24→23:36)
[2021-09-05] MEDS: AMIODARONE 100 MG TAB PO SCH ×2 (07:24→20:50)
[2021-09-05] MEDS ORDERED: APIXABAN 5 MG TAB PO SCH (08:00)
[2021-09-05] MEDS ORDERED: diphenhydrAMINE 50 MG/ML 1 ML VIAL IVP ONE (10:29)
[2021-09-05] MEDS ORDERED: methylPREDNISolone SOD SUCCI 125 MG/2 ML VIAL IV ONE (10:29)
[2021-09-05] MEDS ORDERED: FAMOTIDINE 20 MG/2 ML VIAL IV ONE (10:29)
[2021-09-05 11:08] LABS: Basophils # (A) 0.02 X 10*3/uL (0.00-0.10); Basophils % (A) 0.3 %; Eosinophils # (A) 0.08 X 10*3/uL (0.04-0.35); Eosinophils % (A) 1.4 %; HGB 9.5 g/dL (12.0-15.0); Lymphocytes % (A) 18.9 %; MCH 27.8 pg (27.0-32.0); MCHC 30.6 g/dL (32.0-37.0); MCV 90.6 fL (80.0-97.0); Mean Platelet Volume 11.5 fL (9.5-12.2); Monocytes # (A) 0.56 X 10*3/uL (0.20-1.00); Monocytes % (A) 9.6 %; Neutrophils # (A) 4.04 X 10*3/uL (1.80-7.70); Neutrophils % (A) 69.5 %; Platelet Count 186 X 10*3/uL (140-440); RBC 3.42 X 10*6/uL (4.10-5.20); RDW 13.5 % (11.5-14.5); WBC 5.82 X 10*3/uL (4.50-10.00)
--- NOTE | 2021-09-05 11:27 | P.PN ---
<Chadwick Vivas - Last Filed: 09/05/21 18:06> Subjective Progress Note Date: 09/05/21 Hospital course: Patient is a very pleasant 70-year-old female with a past medical history of CAD with hypertrophic cardiomyopathy, hypertension, and paroxysmal atrial fibrillation on Eliquis. She presented to the emergency department on 09/04/21 with a chief complaint of swelling and pain to her right groin. She underwent ultrasound which revealed evidence of a pseudoaneurysm with a 7.3 x 7.2 x 6.8 cm complex mass suggestive of a partially thrombosed pseudoaneurysm. Patient was admitted to our services with consultation to vascular surgery. Physical exam: Patient seen and fully evaluated at the bedside. She reports pain to right groin and right medial thigh accompanied by numbness/tingling in her right lower extremity. Sensation and movement remain intact. Posterior tibial pulses intact. Patient denies having any chest pain, palpitations, shortness of breath, headache, lightheadedness, dizziness, or any other complaints at this time. Awaiting evaluation by vascular surgery and further recommendations. Vital signs reviewed and stable. General: Nontoxic, no distress and appears stated age. Derm: Skin warm and dry, normal coloration for ethnicity. Head: Atraumatic, normocephalic and symmetric. Eyes: EOMs intact, no lid lag, and anicteric sclera Mouth: no lip lesions, mucus membranes moist Cardiovascular: regular rate and rhythm with normal S1S2, no murmur, positive posterior tibial pulses bilaterally, and cap refill < 2 seconds. Lungs: Respirations even, regular, and unlabored on room air. Lungs CTA bilaterally, no rhonchi, no rales, no wheezing, and no accessory muscle usage. Abdominal: soft, nontender to palpation, no guarding, no appreciable organomegaly Ext: ROM intact. No gross muscle atrophy, no edema, no contractures Neuro: Speech clear, face symmetrical and CN II-XII grossly intact with no noted focal neuro deficits Psych: Alert and oriented to person, place, time, and situation. Appropriate and pleasant affect. Assessment and Plan of Care: Pseudoaneurysm, partially thrombosed 7 cm pseudoaneurysm in the right groin -Vascular surgery consulted -Cardiology consulted -Neurovascular checks right lower extremity every 2-4 hours -Telemetry monitoring -Hold anticoagulation with Eliquis at this time pending further recommendations of vascular surgery. -Safe and supportive care with pain management. -Cardiology consulted. Atrial fibrillation -Hold anticoagulation with Eliquis at this time pending further recommendations of vascular surgery due to possible surgical intervention. Hypertension -Monitor vital signs and continue daily medication regimen with the amiodarone. CODE STATUS: Full code DVT prophylaxis: SCDs, we will hold eliquis at this time pending Discussed with: Patient and RN Anticipated discharge date: Clinical course to determine Anticipated discharge place: Home A total of 45 minutes was spent on the care of this complex patient more than 50% of the time was spent in counseling and care coordination. Objective - Vital Signs Vital signs: Vital Signs Temp 97.6 F 09/05/21 07:00 Pulse 60 09/05/21 08:00 Resp 16 09/05/21 08:00 BP 112/56 09/05/21 07:00 Pulse Ox 98 09/05/21 07:00 Intake & Output 09/04/21 09/05/21 09/05/21 18:59 06:59 18:59 Weight 111.13 kg Other: Voiding Method Bedside Commode - Labs CBC & Chem 7: 09/05/21 06:52 09/04/21 23:51 Labs: Abnormal Lab Results - Last 24 Hours (Table) 09/04/21 09/04/21 09/04/21 Range/Units 23:51 23:51 23:51 RBC (4.10-5.20) X 10*6/uL Hgb (12.0-15.0) g/dL Hct (37.2-46.3) % MCHC (32.0-37.0) g/dL Lymphocytes # 0.7 L (1.0-4.8) k/uL BUN 21 H (7-17) mg/dL Glucose 163 H (74-99) mg/dL Alkaline Phosphatase 161 H (38-126) U/L Urine Appearance Cloudy H (Clear) Urine Protein Trace H (Negative) Urine Ketones Trace H (Negative) Urine Nitrite Positive H (Negative) Ur Leukocyte Esterase Moderate H (Negative) Urine WBC 17 H (0-5) /hpf Urine Bacteria Many H (None) /hpf Hyaline Casts 8 H (0-2) /lpf Urine Mucus Occasional H (None) /hpf 09/05/21 Range/Units 06:52 RBC 3.42 L (4.10-5.20) X 10*6/uL Hgb 9.5 L (12.0-15.0) g/dL Hct 31.0 L (37.2-46.3) % MCHC 30.6 L (32.0-37.0) g/dL Lymphocytes # (1.0-4.8) k/uL BUN (7-17) mg/dL Glucose (74-99) mg/dL Alkaline Phosphatase (38-126) U/L Urine Appearance (Clear) Urine Protein (Negative) Urine Ketones (Negative) Urine Nitrite (Negative) Ur Leukocyte Esterase (Negative) Urine WBC (0-5) /hpf Urine Bacteria (None) /hpf Hyaline Casts (0-2) /lpf Urine Mucus (None) /hpf <Ray Salvador - Last Filed: 09/06/21 07:59> Subjective I reviewed the documentation as provided by the LUPE above, who is the original author of this note. I agree with the documented assessment and plan, with the following changes: none Objective - Vital Signs Vital signs: Vital Signs Temp 98.0 F 09/06/21 03:13 Pulse 70 09/06/21 03:13 Resp 16 09/06/21 03:13 BP 133/62 09/06/21 03:13 Pulse Ox 96 09/06/21 03:13 Intake & Output 09/05/21 09/06/21 09/06/21 18:59 06:59 18:59 Intake Total 118 Output Total 350 Balance -232 Intake: Oral 118 Output: Urine 350 Other: Voiding Method Bedside Commode External Catheter # Voids 1 500 - Labs CBC & Chem 7: 09/05/21 06:52 09/04/21 23:51 Labs: Abnormal Lab Results - Last 24 Hours (Table) 09/05/21 Range/Units 06:52 RBC 3.42 L (4.10-5.20) X 10*6/uL Hgb 9.5 L (12.0-15.0) g/dL Hct 31.0 L (37.2-46.3) % MCHC 30.6 L (32.0-37.0) g/dL
--- NOTE | 2021-09-05 12:11 | P.GSCN ---
History of Present Illness Consult date: 09/05/21 Reason for Consult: Pseudoaneurysm Requesting physician: Russell Cedillo History of present illness: This is a 70-year-old female who presented to the emergency department with complaints of right groin pain and swelling. Patient has a past medical history of coronary artery disease, atrial fibrillation, hypertension and breast cancer. She recently underwent cardiac cath and ablation in June 2021. According to Dr. Delgadillo who performed the procedure states it was a venous stick. Patient denies any bleeding on from that site or hematoma or bruising right after the procedure. She's had no difficulty with walking or pain up until the last 1 to 2 days. And had a ultrasound of the right lower extremity that shows arterial flow in the femoral artery. There is a large 7 cm complex mass in the right groin that could be part of a thrombosed pseudoaneurysm. Initial labs WBC 7.1 hemoglobin 11.9 platelet count 181,000 sodium 137 potassium 3.5 BUN 21 creatinine 0.83 glucose 163. Repeat hemoglobin today 9.5. Patient also with a positive UTI. She is denying any fevers chills shortness breath or chest pain. No abdominal pain nausea vomiting. She is able to move bilateral lower extremities. No pain with walking. Review of Systems 14 point review of systems was completed all pertinent positives and negatives as stated in the HPI Past Medical History Past Medical History: Cancer, Hypertension, Osteoarthritis (OA) Additional Past Medical History / Comment(s): breast CA, loop recorder, HCM, A fib (Loop monitor) History of Any Multi-Drug Resistant Organisms: MRSA Year Discovered:: 2010 MDRO Source:: nasal Past Surgical History: Section, Cholecystectomy, Orthopedic Surgery Additional Past Surgical History / Comment(s): Bilateral mastectomy, bilateral knee replacements, bilateral shoulder surgeries, bilateral cateract surgeries, surgery on nose, mrsa 2010, left rotator cuff repair 07/25/16, cryo ablasion. Past Anesthesia/Blood Transfusion Reactions: No Reported Reaction Past Psychological History: No Psychological Hx Reported Smoking Status: Never smoker Past Alcohol Use History: None Reported Past Drug Use History: None Reported - Past Family History Mother Family Medical History: No Reported History Father Family Medical History: Diabetes Mellitus Medications and Allergies Home Medications Medication Instructions Recorded Confirmed Type Apixaban [Eliquis] 5 mg PO BID 06/22/21 09/04/21 History Losartan Potassium 50 mg PO HS 07/17/21 09/04/21 History Acyclovir 800 mg PO QID 09/04/21 09/04/21 History Amiodarone [Cordarone] 100 mg PO BID 09/04/21 09/04/21 History Metoprolol Succinate [Toprol XL] 25 mg PO DAILY 09/04/21 09/04/21 History Allergies Allergy/AdvReac Type Severity Reaction Status Date / Time amoxicillin Allergy Swelling Verified 09/04/21 23:12 of Lips cinnamon Allergy Rash/Hives Verified 09/04/21 23:12 Iodinated Contrast Media Allergy Anaphylaxis Verified 09/04/21 23:12 [Iodinated Contrast Media - IV Dye] latex Allergy Rash/Hives Verified 09/04/21 23:12 venom-honey bee Allergy Swelling/Pa Verified 09/04/21 23:12 ralysis Surgical - Exam Vital Signs Temp Pulse Resp BP Pulse Ox 98.0 F 60 18 141/80 97 09/04/21 21:15 09/04/21 21:15 09/04/21 21:15 09/04/21 21:15 09/04/21 21:15 General appearance: The patient is alert, oriented, appears in no acute distress. HET: Head is normocephalic and atraumatic. Neck: Supple without lymphadenopathy. Trachea midline. Heart: S1 S2. Regular rate and rhythm. Lungs: No crackles or wheezes are heard. Abdomen: Soft, nontender, nondistended. Extremities: Normal skin color and turgor. No cyanosis, rash, ulceration, clubbing, or edema. Radial and pedal pulses are 2/4 bilaterally. Right groin with TTP. No palpable hematoma or ecchymosis. Neurological: No focal deficits. Strength and sensation are grossly intact. Results - Labs 09/05/21 06:52 09/04/21 23:51 Abnormal Lab Results - Last 24 Hours (Table) 09/04/21 09/04/21 09/04/21 Range/Units 23:51 23:51 23:51 Lymphocytes # 0.7 L (1.0-4.8) k/uL BUN 21 H (7-17) mg/dL Glucose 163 H (74-99) mg/dL Alkaline Phosphatase 161 H (38-126) U/L Urine Appearance Cloudy H (Clear) Urine Protein Trace H (Negative) Urine Ketones Trace H (Negative) Urine Nitrite Positive H (Negative) Ur Leukocyte Esterase Moderate H (Negative) Urine WBC 17 H (0-5) /hpf Urine Bacteria Many H (None) /hpf Hyaline Casts 8 H (0-2) /lpf Urine Mucus Occasional H (None) /hpf Diabetes panel 09/04/21 Range/Units 23:51 Sodium 137 (137-145) mmol/L Potassium 3.5 (3.5-5.1) mmol/L Chloride 105 (98-107) mmol/L Carbon Dioxide 25 (22-30) mmol/L BUN 21 H (7-17) mg/dL Creatinine 0.83 (0.52-1.04) mg/dL Glucose 163 H (74-99) mg/dL Calcium 9.3 (8.4-10.2) mg/dL AST 28 (14-36) U/L ALT 19 (4-34) U/L Alkaline Phosphatase 161 H (38-126) U/L Total Protein 6.3 (6.3-8.2) g/dL Albumin 3.6 (3.5-5.0) g/dL Calcium panel 09/04/21 Range/Units 23:51 Calcium 9.3 (8.4-10.2) mg/dL Phosphorus 3.7 (2.5-4.5) mg/dL Albumin 3.6 (3.5-5.0) g/dL Pituitary panel 09/04/21 Range/Units 23:51 Sodium 137 (137-145) mmol/L Potassium 3.5 (3.5-5.1) mmol/L Chloride 105 (98-107) mmol/L Carbon Dioxide 25 (22-30) mmol/L BUN 21 H (7-17) mg/dL Creatinine 0.83 (0.52-1.04) mg/dL Glucose 163 H (74-99) mg/dL Calcium 9.3 (8.4-10.2) mg/dL Adrenal panel 09/04/21 Range/Units 23:51 Sodium 137 (137-145) mmol/L Potassium 3.5 (3.5-5.1) mmol/L Chloride 105 (98-107) mmol/L Carbon Dioxide 25 (22-30) mmol/L BUN 21 H (7-17) mg/dL Creatinine 0.83 (0.52-1.04) mg/dL Glucose 163 H (74-99) mg/dL Calcium 9.3 (8.4-10.2) mg/dL Total Bilirubin 0.8 (0.2-1.3) mg/dL AST 28 (14-36) U/L ALT 19 (4-34) U/L Alkaline Phosphatase 161 H (38-126) U/L Total Protein 6.3 (6.3-8.2) g/dL Albumin 3.6 (3.5-5.0) g/dL Assessment and Plan Assessment: 1. Right groin pain 2. 7 cm complex mass in right groin, possible thrombosed pseudoaneurysm 3. Cardiac cath and cardiac ablation done in June 2021 4. History of atrial fibrillation 5. History of coronary artery disease Plan: 1. Continue to hold Eliquis 2. CTA abdomen and pelvis with triple venous phase ordered 3. Patient may have heart healthy diet after a CT completed 4. Nothing by mouth after midnight 5. Further recommendations forthcoming per vascular surgeon Thank you for this consultation, and allowing us take part in the plan of care of your patient during his hospital stay. The impression and plan of care has been dictated as directed. Dr. Monge I performed a history and examination of this patient, discussed the same with the dictator. I agree with the dictator's note ,documented as a scribe. Any additional findings or plans will be noted.
--- NOTE | 2021-09-05 12:15 | P.CRDCN ---
History of Present Illness Consult date: 09/05/21 History of present illness: HISTORY OF PRESENT ILLNESS: This is a 70-year-old female with a past medical history significant for hypertension, paroxysmal atrial fibrillation, and hypertrophic cardiomyopathy. Patient follows in the office with Dr. Vaughan. We have been asked to see the patient in consultation for pseudo-aneurysm. Patient examined at the bedside. Patient underwent atrial fibrillation ablation on 07/19/2021. Patient states she has been doing well over the past 2 months. She states over the past couple days she has been having some nerve pain in her right lower extremity but was not having a rash. She went to her primary care physician and was prescribed acyclovir for possible shingles. She states yesterday when she got home she was sitting down when she suddenly was having difficulty moving her leg and noticed a large bulge in her right groin. The patient denied having any chest pain or pressure. Denies shortness of breath. She does report some discomfort of her right lower extremity when she attempts to move it. Ultrasound lower extremities: There is arterial flow in the femoral artery. There is a large 7 cm complex mass in the right greater than could be a partially thrombosed pseudoaneurysm Laboratory data: WBC 5.82. Hemoglobin 9.5. Platelet count 186. Sodium 137. Potassium 3.5. BUN 21. Creatinine 0.83. Current home cardiac medications include metoprolol succinate 25 mg daily, losartan 50 g at night, Eliquis 5 mg twice a day, and amiodarone 100 mg twice a day Most recent echocardiogram obtained in 2019 revealed ejection fraction 60-65%, mild aortic stenosis, mild tricuspid regurgitation, and mild pulmonary hypertension REVIEW OF SYSTEMS: At the time of my exam: CONSTITUTIONAL: Denies fever or chills. HEENT: Denies blurred vision, vision changes, or eye pain. Denies hemoptysis CARDIOVASCULAR: Denies chest pain. Denies orthopnea. Denies PND. Denies palpitations RESPIRATORY: Denies shortness of breath. GASTROINTESTINAL: Denies abdominal pain. Denies nausea or vomiting. HEMATOLOGIC: Denies bleeding disorders. GENITOURINARY: Denies any blood in urine. SKIN: Denies pruitis. Denies rash. PHYSICAL EXAM: VITAL SIGNS: Reviewed. GENERAL: Well-developed in no acute distress. HEENT: Head is normocephalic. Pupils are equal, round. Sclerae anicteric. Mucous membranes of the mouth are moist. Neck supple. No JVD or thyromegaly LUNGS: Respirations even and unlabored. Lungs essentially clear to auscultation bilaterally. HEART: Regular rate and rhythm. S1 and S2 heard. Systolic murmur noted. ABDOMEN: Soft. Nondistended. Nontender. EXTREMITIES: Normal range of motion. No clubbing or cyanosis. Peripheral pulses intact. Patient with large firm mass to right groin. NEUROLOGIC: Awake and alert. Oriented x 3. ASSESSMENT: Right groin pseudoaneurysm Paroxysmal atrial fibrillation with recent ablation on 07/19/2021 Hypertension Hypertrophic cardiomyopathy PLAN: Resume home cardiac medications Hold Eliquis Vascular consulted. Await evaluation Continue to monitor right groin Further recommendations pending patient course Nurse practitioner note has been reviewed by physician. Signing provider agrees with the documented findings, assessment, and plan of care. Past Medical History Past Medical History: Cancer, Hypertension, Osteoarthritis (OA) Additional Past Medical History / Comment(s): breast CA, loop recorder, HCM, A fib (Loop monitor) History of Any Multi-Drug Resistant Organisms: MRSA Date of last positivie culture/infection: 2010 MDRO Source:: nasal Past Surgical History: Section, Cholecystectomy, Orthopedic Surgery Additional Past Surgical History / Comment(s): Bilateral mastectomy, bilateral knee replacements, bilateral shoulder surgeries, bilateral cateract surgeries, surgery on nose, mrsa 2010, left rotator cuff repair 07/25/16, cryo ablasion. Past Anesthesia/Blood Transfusion Reactions: No Reported Reaction Past Psychological History: No Psychological Hx Reported Smoking Status: Never smoker Past Alcohol Use History: None Reported Past Drug Use History: None Reported - Past Family History Mother Family Medical History: No Reported History Father Family Medical History: Diabetes Mellitus Medications and Allergies Home Medications Medication Instructions Recorded Confirmed Type Apixaban [Eliquis] 5 mg PO BID 06/22/21 09/04/21 History Losartan Potassium 50 mg PO HS 07/17/21 09/04/21 History Acyclovir 800 mg PO QID 09/04/21 09/04/21 History Amiodarone [Cordarone] 100 mg PO BID 09/04/21 09/04/21 History Metoprolol Succinate [Toprol XL] 25 mg PO DAILY 09/04/21 09/04/21 History Allergies Allergy/AdvReac Type Severity Reaction Status Date / Time amoxicillin Allergy Swelling Verified 09/04/21 23:12 of Lips cinnamon Allergy Rash/Hives Verified 09/04/21 23:12 Iodinated Contrast Media Allergy Anaphylaxis Verified 09/04/21 23:12 [Iodinated Contrast Media - IV Dye] latex Allergy Rash/Hives Verified 09/04/21 23:12 venom-honey bee Allergy Swelling/Pa Verified 09/04/21 23:12 ralysis Physical Exam Vitals: Vital Signs Temp Pulse Pulse Resp BP BP Pulse Ox 09/05/21 08:00 60 16 09/05/21 07:00 97.6 F 60 16 112/56 98 09/05/21 02:48 97.9 F 66 17 165/81 100 09/05/21 00:20 61 16 154/81 95 09/04/21 21:15 98.0 F 60 18 141/80 97 Intake and Output 09/04/21 09/05/21 09/05/21 22:59 06:59 14:59 Other: Voiding Method Bedside Commode Weight 111.13 kg 111.13 kg Results 09/05/21 06:52 09/04/21 23:51 Cardiac Enzymes 09/04/21 Range/Units 23:51 AST 28 (14-36) U/L Coagulation 09/04/21 Range/Units 23:51 PT 11.3 (9.0-12.0) sec APTT 23.0 (22.0-30.0) sec CBC 09/04/21 09/05/21 Range/Units 23:51 06:52 WBC 7.1 5.82 (3.8-10.6) k/uL RBC 4.15 3.42 L (3.80-5.40) m/uL Hgb 11.9 9.5 L (11.4-16.0) gm/dL Hct 37.4 31.0 L (34.0-46.0) % Plt Count 181 186 (150-450) k/uL Comprehensive Metabolic Panel 09/04/21 Range/Units 23:51 Sodium 137 (137-145) mmol/L Potassium 3.5 (3.5-5.1) mmol/L Chloride 105 (98-107) mmol/L Carbon Dioxide 25 (22-30) mmol/L BUN 21 H (7-17) mg/dL Creatinine 0.83 (0.52-1.04) mg/dL Glucose 163 H (74-99) mg/dL Calcium 9.3 (8.4-10.2) mg/dL AST 28 (14-36) U/L ALT 19 (4-34) U/L Alkaline Phosphatase 161 H (38-126) U/L Total Protein 6.3 (6.3-8.2) g/dL Albumin 3.6 (3.5-5.0) g/dL Current Medications Generic Name Dose Route Start Last Admin Trade Name Freq PRN Reason Stop Dose Admin Acetaminophen 650 mg 09/04/21 23:45 09/05/21 03:15 Acetaminophen Tab 325 Mg Tab PO 650 mg Q6HR PRN Administration Mild Pain or Fever > 100.5 Amiodarone HCl 100 mg 09/05/21 09:00 09/05/21 07:24 Amiodarone 100 Mg Tab PO 100 mg BID ARCENIO Administration Sodium Chloride 1,000 mls @ 130 mls/hr 09/04/21 23:45 09/05/21 07:24 Saline 0.9% IV 130 mls/hr .Q7H42M ARCENIO Administration Lorazepam 0.5 mg 09/04/21 23:45 Lorazepam 2 Mg/Ml Inj IV Q6HR PRN Anxiety Losartan Potassium 50 mg 09/05/21 03:23 09/05/21 03:33 Losartan 50 Mg Tab PO 50 mg HS ARCENIO Administration Metoprolol Succinate 25 mg 09/05/21 09:00 09/05/21 07:23 Metoprolol Succinate (Er) 25 Mg Tab.Er.24h PO 25 mg DAILY ARCENIO Administration Morphine Sulfate 4 mg 09/04/21 23:45 09/05/21 08:25 Morphine Sulfate 4 Mg/Ml Syringe IV 4 mg Q4HR PRN Administration Severe Pain Naloxone HCl 0.2 mg 09/04/21 23:45 Naloxone 0.4 Mg/Ml 1 Ml Vial IV Q2M PRN Opioid Reversal Ondansetron HCl 4 mg 09/04/21 23:45 Ondansetron 4 Mg/2 Ml Vial IVP Q8HR PRN Nausea And Vomiting Intake and Output 09/04/21 09/05/21 09/05/21 22:59 06:59 14:59 Other: Voiding Method Bedside Commode Weight 111.13 kg 111.13 kg 09/05/21 06:52 09/04/21 23:51
--- NOTE | 2021-09-05 16:03 | P.PN ---
Progress Note - Text Spoke to dr. Monge regarding patient's right pseudoaneurysm Patient underwent A. fib ablation with venous sheaths placed in the right fe moral and left femoral veins The right femoral access was a venous access, 15-Albanian sheath This was not an arterial access
[2021-09-05] MEDS: CLINDAMYCIN 150 MG CAP PO SCH (20:51)
--- NOTE | 2021-09-05 22:25 | CT ---
EXAMINATION TYPE: CT angio abdomen pelvis DATE OF EXAM: 09/05/2021 COMPARISON: 12/28/2020 HISTORY: Right femoral artery pseudoaneurysm. CT DLP: 4115.9 mGycm Automated exposure control for dose reduction was used. CONTRAST: Performed without and with IV Contrast, patient injected with 100ml mL of Isovue 370. Images obtained from the diaphragm to the distal femurs without and with IV contrast. There are Three-D postprocessed images. Lung bases are clear of consolidation. There is no pleural effusion. Heart size is normal. There is n o pericardial effusion. Liver spleen pancreas appear intact. There are clips from cholecystectomy. There is large common bile duct measuring 1.8 cm. The stomach is intact. There is arterial flow in the abdominal aorta and the celiac artery and superior mesenteric artery. T here is arterial flow in both renal arteries. There is plaque formation at the origin of the left melodie al artery. There is arterial flow in the iliac and femoral arteries. There is a large right groin mas s measuring 9 x 7 cm with mixed attenuation consistent with acute and chronic hemorrhage. The mass méndez s overall length of approximately 15 cm. There is some contrast extravasation into the mass on the po sterior right lateral aspect adjacent to the femoral artery. This is consistent with large pseudoaneu rysm. There is mild flattening of the proximal right femoral artery adjacent to the mass. There is ar terial flow in both mid and distal femoral arteries without evidence of stenosis. The contrast extrav asation measures 3.5 x 1.5 cm. There is no mesenteric edema. There is no ascites or free air. There is no bowel obstruction. There i s some mild spurring in the lumbar spine. There is no compression fracture. Bony pelvis is intact. Th ere is 2 mm calculus interpolar left kidney. There is no hydronephrosis. IMPRESSION: Large acute and chronic hematoma in the right groin region with evidence of pseudoaneurysm and some l ocalized contrast extravasation medial to the femoral artery. Ultrasound exam yesterday showed the ma ss measuring 7 cm and probably has increased in size compared to yesterday. This is consistent with a ctive bleeding.
[2021-09-06] MEDS: SODIUM CHLORIDE 0.9% 1,000 ML IV SCH ×4 (01:59→23:19)
[2021-09-06] MEDS: METOPROLOL SUCCINATE (ER) 25 MG TAB.ER.24H PO SCH (08:54)
[2021-09-06] MEDS: CLINDAMYCIN 150 MG CAP PO SCH ×3 (08:54→20:12)
[2021-09-06] MEDS: AMIODARONE 100 MG TAB PO SCH ×2 (08:54→20:12)
[2021-09-06] MEDS: MORPHINE SULFATE 4 MG/ML SYRINGE IV PRN ×3 (10:01→20:27)
--- NOTE | 2021-09-06 11:08 | P.PN ---
<Chadwick Vivas - Last Filed: 09/06/21 15:22> Subjective Progress Note Date: 09/06/21 Hospital course: Patient is a very pleasant 70-year-old female with a past medical history of CAD with hypertrophic cardiomyopathy, hypertension, and paroxysmal atrial fibrillation on Eliquis. She presented to the emergency department on 09/04/21 with a chief complaint of swelling and pain to her right groin. She underwent ultrasound which revealed evidence of a pseudoaneurysm with a 7.3 x 7.2 x 6.8 cm complex mass suggestive of a partially thrombosed pseudoaneurysm. Patient was admitted to our services with consultation to vascular surgery. She underwent a CTA of abdomen and pelvis with runoff which revealed a large acute and chronic hematoma in the right groin region with evidence of pseudoaneurysm and localized contrast extravasation medial to the femoral artery enlarged when compared to ultrasound completed the day before, consistent with active bleeding. Interventional radiology was then consulted to evaluate for for possible ultrasound-guided thrombin injection. Physical exam: Patient seen and fully evaluated at the bedside. She reports pain to right groin and right medial thigh has improved when compared to reports of pain she experienced yesterday. Her movement and sensation remain intact and pt reports that she is even able to stand on her leg today, something she was unable to do yesterday. She continues to deny having any chest pain, palpitations, shortness of breath, headache, lightheadedness, dizziness, or any other complaints at this time. Vascular surgery following and further recommendations are pending evaluation by Interventional radiology. Vital signs reviewed and stable. General: Nontoxic, no distress and appears stated age. Derm: Skin warm and dry, normal coloration for ethnicity. Head: Atraumatic, normocephalic and symmetric. Eyes: EOMs intact, no lid lag, and anicteric sclera Mouth: no lip lesions, mucus membranes moist Cardiovascular: regular rate and rhythm with normal S1S2, grade III systolic murmur, positive posterior tibial pulses bilaterally, and cap refill < 2 seconds. Lungs: Respirations even, regular, and unlabored on room air. Lungs CTA bilaterally, no rhonchi, no rales, no wheezing, and no accessory muscle usage. Abdominal: soft, nontender to palpation, no guarding, no appreciable organomegaly Ext: ROM intact. No gross muscle atrophy, no edema, no contractures. Tenderness remains to right groin and right medial thigh. Neuro: Speech clear, face symmetrical and CN II-XII grossly intact with no noted focal neuro deficits Psych: Alert and oriented to person, place, time, and situation. Appropriate and pleasant affect. Assessment and Plan of Care: Pseudoaneurysm, partially thrombosed 7 cm pseudoaneurysm in the right groin -Vascular surgery following -Interventional radiology following -Cardiology following -Neurovascular checks right lower extremity every 2-4 hours -Telemetry monitoring -Hold anticoagulation with Eliquis at this time pending further recommendations of vascular surgery and interventional radiology. -Safe and supportive care with pain management. Atrial fibrillation -Hold anticoagulation with Eliquis at this time pending further recommendations of vascular surgery due to possible surgical intervention. Hypertension -Monitor vital signs and continue daily medication regimen with the amiodarone. CODE STATUS: Full code DVT prophylaxis: SCDs, we will hold eliquis at this time pending Discussed with: Patient and RN Anticipated discharge date: Clinical course to determine Anticipated discharge place: Home A total of 45 minutes was spent on the care of this complex patient more than 50% of the time was spent in counseling and care coordination. Objective - Vital Signs Vital signs: Vital Signs Temp 97.8 F 09/06/21 07:00 Pulse 69 09/06/21 07:00 Resp 18 09/06/21 07:00 BP 111/66 09/06/21 07:00 Pulse Ox 99 09/06/21 07:00 Intake & Output 09/05/21 09/06/21 09/06/21 18:59 06:59 18:59 Intake Total 118 Output Total 350 Balance -232 Intake: Oral 118 Output: Urine 350 Other: Voiding Method Bedside Commode External Catheter # Voids 1 500 - Labs CBC & Chem 7: 09/05/21 06:52 09/04/21 23:51 Labs: Abnormal Lab Results - Last 24 Hours (Table) 09/05/21 Range/Units 06:52 RBC 3.42 L (4.10-5.20) X 10*6/uL Hgb 9.5 L (12.0-15.0) g/dL Hct 31.0 L (37.2-46.3) % MCHC 30.6 L (32.0-37.0) g/dL <Ray Salvador - Last Filed: 09/06/21 16:59> Subjective I reviewed the documentation as provided by the LUPE above, who is the original author of this note. I agree with the documented assessment and plan, with the following changes: None Objective - Vital Signs Vital signs: Vital Signs Temp 97.5 F L 09/06/21 13:51 Pulse 66 09/06/21 13:51 Resp 17 09/06/21 13:51 BP 90/50 09/06/21 13:51 Pulse Ox 100 09/06/21 13:51 Intake & Output 09/05/21 09/06/21 09/06/21 18:59 06:59 18:59 Intake Total 118 1090 Output Total 350 Balance -232 1090 Intake: Intake, IV Titration 1090 Amount Sodium Chloride 0.9% 1, 1040 000 ml @ 130 mls/hr IV . Q7H42M [facility] Rx#:[id number] cefTRIAXone 1 gm In 50 Sodium Chloride 0.9% 50 ml @ 100 mls/hr IVPB Q24HR ARCENIO Rx#:[id number] Oral 118 Output: Urine 350 Other: Voiding Method Bedside Commode External Catheter # Voids 1 500 - Labs CBC & Chem 7: 09/06/21 15:56 09/04/21 23:51 Labs: Abnormal Lab Results - Last 24 Hours (Table) 09/06/21 Range/Units 15:56 RBC 3.16 L (3.80-5.40) m/uL Hgb 9.2 L D (11.4-16.0) gm/dL Hct 28.8 L (34.0-46.0) % Microbiology - Last 24 Hours (Table) 09/06/21 08:07 Urine Culture - Preliminary Urine,Clean Catch
--- NOTE | 2021-09-06 11:40 | P.GSCN ---
History of Present Illness Consult date: 09/06/21 Reason for Consult: right groin pseudoaneurysm History of present illness: I was consulted for right groin pseudoaneurysm treatment with u/s guide thrombin injection. Patient with remote history of groin catheterization and cardiac ablation. Review of CTA 09/05/21 and u/s 09/04/21 right groin There is suboptimal definition of a pseudoaneurysm neck and patient's elem anatomy on the ultrasound. Due to risk of non target thrombosis, percutaneous treatment is deferred. Past Medical History Past Medical History: Cancer, Hypertension, Osteoarthritis (OA) Additional Past Medical History / Comment(s): breast CA, loop recorder, HCM, A fib (Loop monitor) History of Any Multi-Drug Resistant Organisms: MRSA Year Discovered:: 2010 MDRO Source:: nasal Past Surgical History: Section, Cholecystectomy, Orthopedic Surgery Additional Past Surgical History / Comment(s): Bilateral mastectomy, bilateral knee replacements, bilateral shoulder surgeries, bilateral cateract surgeries, surgery on nose, mrsa 2010, left rotator cuff repair 07/25/16, cryo ablasion. Past Anesthesia/Blood Transfusion Reactions: No Reported Reaction Past Psychological History: No Psychological Hx Reported Smoking Status: Never smoker Past Alcohol Use History: None Reported Past Drug Use History: None Reported - Past Family History Mother Family Medical History: No Reported History Father Family Medical History: Diabetes Mellitus Medications and Allergies Home Medications Medication Instructions Recorded Confirmed Type Apixaban [Eliquis] 5 mg PO BID 06/22/21 09/04/21 History Losartan Potassium 50 mg PO HS 07/17/21 09/04/21 History Acyclovir 800 mg PO QID 09/04/21 09/04/21 History Amiodarone [Cordarone] 100 mg PO BID 09/04/21 09/04/21 History Metoprolol Succinate [Toprol XL] 25 mg PO DAILY 09/04/21 09/04/21 History Allergies Allergy/AdvReac Type Severity Reaction Status Date / Time amoxicillin Allergy Swelling Verified 09/04/21 23:12 of Lips cinnamon Allergy Rash/Hives Verified 09/04/21 23:12 Iodinated Contrast Media Allergy Anaphylaxis Verified 09/04/21 23:12 [Iodinated Contrast Media - IV Dye] latex Allergy Rash/Hives Verified 09/04/21 23:12 venom-honey bee Allergy Swelling/Pa Verified 09/04/21 23:12 ralysis Surgical - Exam Vital Signs Temp Pulse Resp BP Pulse Ox 98.0 F 60 18 141/80 97 09/04/21 21:15 09/04/21 21:15 09/04/21 21:15 09/04/21 21:15 09/04/21 21:15 Results - Labs 09/05/21 06:52 09/04/21 23:51
--- NOTE | 2021-09-06 11:52 | P.PN ---
Subjective Progress Note Date: 09/06/21 HISTORY OF PRESENT ILLNESS: This is a 70-year-old female with a past medical history significant for hypertension, paroxysmal atrial fibrillation, and hypertrophic cardiomyopathy. Patient follows in the office with Dr. Vaughan. We have been asked to see the patient in consultation for pseudo-aneurysm. Patient examined at the bedside. Patient underwent atrial fibrillation ablation on 07/19/2021. Patient states she has been doing well over the past 2 months. She states over the past couple days she has been having some nerve pain in her right lower extremity but was not having a rash. She went to her primary care physician and was prescribed acyclovir for possible shingles. She states yesterday when she got home she was sitting down when she suddenly was having difficulty moving her leg and noticed a large bulge in her right groin. The patient denied having any chest pain or pressure. Denies shortness of breath. She does report some discomfort of her right lower extremity when she attempts to move it. Ultrasound lower extremities: There is arterial flow in the femoral artery. There is a large 7 cm complex mass in the right greater than could be a partially thrombosed pseudoaneurysm Laboratory data: WBC 5.82. Hemoglobin 9.5. Platelet count 186. Sodium 137. Potassium 3.5. BUN 21. Creatinine 0.83. Current home cardiac medications include metoprolol succinate 25 mg daily, losartan 50 g at night, Eliquis 5 mg twice a day, and amiodarone 100 mg twice a day Most recent echocardiogram obtained in 2019 revealed ejection fraction 60-65%, mild aortic stenosis, mild tricuspid regurgitation, and mild pulmonary hypertension 09/06/2021 Patient examined this morning at the bedside. Patient denies chest pain or pressure. She denies shortness of breath. She states that there is improvement in her discomfort of her right lower extremity. She underwent CT yesterday revealing large acute on chronic hematoma in the right groin region with evidence of pseudoaneurysm and some localized contrast extravasation medial to the femoral artery. PHYSICAL EXAM: VITAL SIGNS: Reviewed. GENERAL: Well-developed in no acute distress. HEENT: Head is normocephalic. Pupils are equal, round. Sclerae anicteric. Mucous membranes of the mouth are moist. Neck supple. No JVD or thyromegaly LUNGS: Respirations even and unlabored. Lungs essentially clear to auscultation bilaterally. HEART: Regular rate and rhythm. S1 and S2 heard. Systolic murmur noted. ABDOMEN: Soft. Nondistended. Nontender. EXTREMITIES: Normal range of motion. No clubbing or cyanosis. Peripheral pulses intact. Patient with large firm hematoma to right groin. NEUROLOGIC: Awake and alert. Oriented x 3. ASSESSMENT: Right groin pseudoaneurysm Large acute on chronic hematoma right groin Paroxysmal atrial fibrillation with recent ablation on 07/19/2021 Hypertension Hypertrophic cardiomyopathy PLAN: Continue cardiac medications [facility]ascular following. Case discussed with vascular surgery this morning who states they are going to consult interventional radiology for possible thrombin injection. Further recommendations pending patient course Nurse practitioner note has been reviewed by physician. Signing provider agrees with the documented findings, assessment, and plan of care. Objective - Vital Signs Vital signs: Vital Signs Temp 97.8 F 09/06/21 07:00 Pulse 69 09/06/21 07:00 Resp 18 09/06/21 07:00 BP 111/66 09/06/21 07:00 Pulse Ox 99 09/06/21 07:00 Intake & Output 09/05/21 09/06/21 09/06/21 18:59 06:59 18:59 Intake Total 118 Output Total 350 Balance -232 Intake: Oral 118 Output: Urine 350 Other: Voiding Method Bedside Commode External Catheter # Voids 1 500 - Labs CBC & Chem 7: 09/05/21 06:52 09/04/21 23:51
--- NOTE | 2021-09-06 12:55 | P.PN ---
Subjective Progress Note Date: 09/06/21 Patient seen and examined sitting up at the bedside. She states her right groin and leg pain has improved significantly. She is up and able to ambulate. She had a CTA of the abdomen and pelvis yesterday that showed a large acute on chronic hematoma in the right groin region with evidence of pseudoaneurysm and some localized contrast extravasation medial to the femoral artery. Ultrasound exam showed the mass measuring 7 cm probably has increased in size compared to yesterday. Consistent with active bleeding. Hemoglobin from yesterday 9.5, INR 1.1. Objective - Vital Signs Vital signs: Vital Signs Temp 98.0 F 09/06/21 03:13 Pulse 70 09/06/21 03:13 Resp 16 09/06/21 03:13 BP 133/62 09/06/21 03:13 Pulse Ox 96 09/06/21 03:13 Intake & Output 09/05/21 09/06/21 09/06/21 18:59 06:59 18:59 Intake Total 118 Output Total 350 Balance -232 Intake: Oral 118 Output: Urine 350 Other: Voiding Method Bedside Commode External Catheter # Voids 1 500 - Exam General appearance: The patient is alert, oriented, in no acute distress. HET: Head is normocephalic and atraumatic. Abdomen: Soft, nontender, nondistended with bowel sounds. No peritoneal signs. No palpable organomegaly or masses. Extremities: Normal skin color and turgor. Right groin with mild tenderness to palpation. He patient is able to move lower extremities frequently. Warm to palpation with palpable DP. Neurological: No focal deficits. Strength and sensation are grossly intact. - Labs CBC & Chem 7: 09/05/21 06:52 09/04/21 23:51 Labs: Abnormal Lab Results - Last 24 Hours (Table) 09/05/21 Range/Units 06:52 RBC 3.42 L (4.10-5.20) X 10*6/uL Hgb 9.5 L (12.0-15.0) g/dL Hct 31.0 L (37.2-46.3) % MCHC 30.6 L (32.0-37.0) g/dL Assessment and Plan Assessment: 1. Pseudoaneurysm right groin with active bleeding 2. Right groin pain 3. Cardiac cath and cardiac ablation done in June 2021 4. History of atrial fibrillation 5. History of coronary artery disease Plan: 1. Consult to interventional radiology for thrombin injection. IR states that there was suboptimal definition of the pseudoaneurysm and due to risk of nontarget thrombosis percutaneous treatment is deferred. 2. Patient will be scheduled for repair of pseudoaneurysm tomorrow 3. Nothing by mouth after midnight 4. Continue to hold Eliquis 5. Type and Screen 6. Repeat CBC in A.M. The impression and plan of care has been dictated as directed. Dr. Hui I performed a history and examination of this patient, discussed the same with the dictator. I agree with the dictator's note ,documented as a scribe. Any additional findings or plans will be noted.
[2021-09-06 16:12] LABS: HCT 28.8 % (34.0-46.0); Hypochromasia Slight; MCH 29.1 pg (25.0-35.0); MCHC 31.9 g/dL (31.0-37.0); MCV 91.2 fL (80.0-100.0); Mean Platelet Volume 9.1; Platelet Count 188 k/uL (150-450); RBC 3.16 m/uL (3.80-5.40); RDW 13.7 % (11.5-15.5); WBC 9.2 k/uL (3.8-10.6)
[2021-09-06 16:32] LABS: HGB 9.2 gm/dL (11.4-16.0)
[2021-09-06] MEDS: LOSARTAN 50 MG TAB PO SCH (20:12)
[2021-09-07] MEDS: MORPHINE SULFATE 4 MG/ML SYRINGE IV PRN ×3 (02:03→23:41)
[2021-09-07] MEDS: SODIUM CHLORIDE 0.9% 1,000 ML IV SCH ×2 (05:16→20:44)
[2021-09-07 07:31] LABS: HCT 27.3 % (34.0-46.0); HGB 8.5 gm/dL (11.4-16.0); Hypochromasia Moderate; MCH 29.2 pg (25.0-35.0); MCHC 31.1 g/dL (31.0-37.0); MCV 93.8 fL (80.0-100.0); Mean Platelet Volume 8.8; Platelet Count 155 k/uL (150-450); RBC 2.91 m/uL (3.80-5.40); RDW 14.2 % (11.5-15.5)
[2021-09-07] MEDS: AMIODARONE 100 MG TAB PO SCH ×2 (07:49→21:48)
[2021-09-07] MEDS: METOPROLOL SUCCINATE (ER) 25 MG TAB.ER.24H PO SCH (07:49)
[2021-09-07] MEDS: CLINDAMYCIN 150 MG CAP PO SCH ×3 (09:02→21:48)
--- NOTE | 2021-09-07 09:57 | US ---
EXAMINATION TYPE: US lower ext pseudo artery RT DATE OF EXAM: 09/07/2021 COMPARISON: Ultrasound 3 days earlier. CTA 2 days ago. CLINICAL HISTORY: re-evaluate pseudoaneurysm for complete thrombosis. reassess known pseudo EXAM PERFORMED: Grayscale and color Doppler duplex imaging performed of the groin, post cardiac jhonatan ter to assess for pseudoaneurysm. SIDE PERFORMED: Right Color and Waveform Doppler performed to assess for the presence of pseudoaneurysm; Is there ultrasound evidence of a pseudoaneurysm: yes Complicated case. Patient still appears to have large pseudo that is mostly thrombosed. On the latera l aspect of pseudo there is still a small portion of arterial flow noted just anterior to femoral art daljit. Unable to still achieve visualization of neck. CT showed same evidence of lateral flow also. IMPRESSION: Persistent mostly thrombosed large right groin pseudoaneurysm remains present. No signifi cant change from most recent studies.
[2021-09-07 11:15] LABS: African American GFR (CKD) 86.9 (60.0-200.0); Albumin 3.4 g/dL (3.8-4.9); Albumin/Globulin Ratio 1.91 (1.60-3.17); Anion Gap 9.8 mmol/L (10.00-18.00); BUN/Creat Ratio 27.74 Ratio (12.00-20.00); Calcium 8.4 mg/dL (8.7-10.3); Carbon Dioxide 21.3 mmol/L (20.0-27.5); Globulin 1.8 g/dL (1.6-3.3); Magnesium 1.7 mg/dL (1.5-2.4); Potassium 3.6 mmol/L (3.5-5.5); Total Bilirubin 0.4 mg/dL (0.30-1.20); Total Protein 5.2 g/dL (6.2-8.2)
--- NOTE | 2021-09-07 11:38 | P.PN ---
Subjective Progress Note Date: 09/07/21 This is a 70-year-old female who had an ablation done several months ago. He came with pain and a mass in the right groin and investigation is consistent with pseudoaneurysm. Seen by vascular surgeon and also or interventional radiologist. It was felt that injection of thrombin may not be feasible because of inadequate visualization. Vascular surgeons on following and repeating ultrasound to see if she needs to go to for surgery. Otherwise patient doesn't have any complaints of chest pain or shortness of breath. No arrhythmias or palpitations Objective - Vital Signs Vital signs: Vital Signs Temp 97.8 F 09/07/21 08:00 Pulse 62 09/07/21 08:00 Resp 18 09/07/21 08:00 BP 125/74 09/07/21 08:00 Pulse Ox 99 09/07/21 08:00 Intake & Output 09/06/21 09/07/21 09/07/21 18:59 06:59 18:59 Intake Total 1328 Balance 1328 Intake: Intake, IV Titration 1090 Amount Sodium Chloride 0.9% 1, 1040 000 ml @ 130 mls/hr IV . Q7H42M [facility] Rx#:[id number] cefTRIAXone 1 gm In 50 Sodium Chloride 0.9% 50 ml @ 100 mls/hr IVPB Q24HR [facility] Rx#:[id number] Oral 238 Other: Voiding Method External Catheter Toilet External Catheter # Voids 2 - Exam GENERAL EXAM: Patient is alert and oriented and doesn't appear to be in any acute distress HEENT: Normocephalic. Normal reaction of pupils, equal size, normal range of extraocular motion. No erythema or exudates in the throat. NECK: No masses, no nuchal rigidity. CHEST: No chest wall deformity. LUNGS: Equal air entry with no crackles or wheeze. HEART: S1 and S2 normal with no audible mumurs or gallops. Regular rhythm, femorals equal on both sides.. ABDOMEN: No hepatosplenomegaly, normal bowel sounds, no guarding or rigidity. SKIN: No rashes CENTRAL NERVOUS SYSTEM: No focal deficits. EXTREMITIES: Swelling in the right groin - Labs CBC & Chem 7: 09/07/21 06:47 09/07/21 06:47 Labs: Abnormal Lab Results - Last 24 Hours (Table) 09/06/21 09/07/21 09/07/21 Range/Units 15:56 06:47 06:47 RBC 3.16 L 2.91 L (3.80-5.40) m/uL Hgb 9.2 L D 8.5 L (11.4-16.0) gm/dL Hct 28.8 L 27.3 L (34.0-46.0) % Chloride 111 H (96-109) mmol/L Anion Gap 9.80 L (10.00-18.00) mmol/L BUN/Creatinine Ratio 27.74 H (12.00-20.00) Ratio Calcium 8.4 L (8.7-10.3) mg/dL Alkaline Phosphatase 128 H (41-126) U/L Total Protein 5.2 L (6.2-8.2) g/dL Albumin 3.4 L (3.8-4.9) g/dL Microbiology - Last 24 Hours (Table) 09/06/21 08:07 Urine Culture - Preliminary Urine,Clean Catch Assessment and Plan (1) Pseudoaneurysm of right femoral artery Current Visit: Yes Status: Acute Code(s): I72.4 - ANEURYSM OF ARTERY OF LOWER EXTREMITY SNOMED Code(s): 536631498 (2) History of atrial fibrillation Current Visit: Yes Status: Acute Code(s): Z86.79 - PERSONAL HISTORY OF OTHER DISEASES OF THE CIRCULATORY SYSTEM SNOMED Code(s): 524271618 Plan: Continue current management. Vascular surgeons to decide about further approach
[2021-09-07] MEDS ORDERED: IV FLUID CONTINUATION 1,000 ML IV ONE (12:21)
[2021-09-07] MEDS ORDERED: DEXAMETHASONE SOD PHOSPHATE 4 MG/ML 1 ML VIAL IVP ONE (12:57)
[2021-09-07] MEDS ORDERED: ONDANSETRON 4 MG/2 ML VIAL IVP ONE ×2 (12:57→20:42)
[2021-09-07] MEDS ORDERED: SUCCINYLCHOLINE CHLORIDE 100 MG/5 ML SYR IV ONE (13:27)
[2021-09-07] MEDS ORDERED: PHENYLEPHRINE-0.9% NACL SYG 1,000 MCG/10 ML SYRINGE ONE (13:27)
[2021-09-07] MEDS ORDERED: PROPOFOL 10 MG/ML 20 ML VIAL IV ONE (13:27)
[2021-09-07] MEDS ORDERED: ONDANSETRON 4 MG/2 ML VIAL ONE (13:27)
[2021-09-07] MEDS ORDERED: MIDAZOLAM 2 MG/2 ML VIAL ONE (13:27)
[2021-09-07] MEDS ORDERED: HYDROmorphone (PF) 1 MG/ML ONE (13:27)
[2021-09-07] MEDS ORDERED: ROCURONIUM 10 MG/ML (5 ML VIAL) IV ONE (13:27)
[2021-09-07] MEDS ORDERED: KETAMINE 10 MG/ML 20 ML VIAL ONE (13:27)
[2021-09-07] MEDS ORDERED: HEPARIN SODIUM,PORCINE 10,000 UNIT/ML 1 ML VIAL ONE (13:27)
[2021-09-07] MEDS ORDERED: LIDOCAINE 1% INJ 10MG/ML (20 ML MDV) ONE (13:27)
[2021-09-07] MEDS ORDERED: NEOSTIGMINE 1 MG/ML 10 ML VIAL ONE (13:27)
[2021-09-07] MEDS ORDERED: GLYCOPYRROLATE 0.2 MG/ML 2 ML VIAL ONE (13:27)
[2021-09-07] MEDS ORDERED: fentaNYL (PF) 50 MCG/ML 2 ML AMP ONE (13:27)
[2021-09-07] MEDS: VANCOMYCIN 1,500 MG in SODIUM CHLORIDE 0.9% 250 ML IVPB PRN ×2 (13:30→13:32)
[2021-09-07] MEDS ORDERED: HEPARIN SODIUM,PORCINE 10,000 UNIT in SODIUM CHLORIDE 0.9% 1,000 ML IRRIGATION ONE (13:32)
[2021-09-07] MEDS ORDERED: GELATIN SPONGE,ABSORB (LARGE) 1 EACH SPONGE TOPICAL ONE (13:32)
[2021-09-07] MEDS ORDERED: THROMBIN (BOVINE) 5,000 UNIT VIAL TOPICAL ONE (13:32)
[2021-09-07] MEDS ORDERED: LACTATED RINGERS 1,000 ML IV ONE (14:37)
--- NOTE | 2021-09-07 15:16 | P.PN ---
<Chadwick Vivas - Last Filed: 09/07/21 15:07> Subjective Progress Note Date: 09/07/21 Hospital course: Patient is a very pleasant 70-year-old female with a past medical history of CAD with hypertrophic cardiomyopathy, hypertension, and paroxysmal atrial fibrillation on Eliquis. She presented to the emergency department on 09/04/21 with a chief complaint of swelling and pain to her right groin. She underwent ultrasound which revealed evidence of a pseudoaneurysm with a 7.3 x 7.2 x 6.8 cm complex mass suggestive of a partially thrombosed pseudoaneurysm. Patient was admitted to our services with consultation to vascular surgery. She underwent a CTA of abdomen and pelvis with runoff which revealed a large acute and chronic hematoma in the right groin region with evidence of pseudoaneurysm and localized contrast extravasation medial to the femoral artery enlarged when compared to ultrasound completed the day before, consistent with active bleeding. Interventional radiology was then consulted to evaluate for for possible ultrasound-guided thrombin injection. Physical exam: Patient seen and fully evaluated at the bedside. At time of assessment patient was having Doppler completed to reevaluate pseudoaneurysm prior to undergoing potential vascular surgery tentatively scheduled for this afternoon. Patient continues to deny having any chest pain, palpitations, shortness of breath, headache, lightheadedness, dizziness, or any other complaints at this time. Morning labs reviewed. Hemoglobin 8.5 and magnesium 1.7. Orders place for replacement of magnesium and we will continue to monitor hemoglobin closely. Vital signs reviewed and stable. General: Nontoxic, no distress and appears stated age. Derm: Skin warm and dry, normal coloration for ethnicity. Head: Atraumatic, normocephalic and symmetric. Eyes: EOMs intact, no lid lag, and anicteric sclera Mouth: no lip lesions, mucus membranes moist Cardiovascular: regular rate and rhythm with normal S1S2, grade III systolic murmur, positive posterior tibial pulses bilaterally, and cap refill < 2 seconds. Lungs: Respirations even, regular, and unlabored on room air. Lungs CTA bilaterally, no rhonchi, no rales, no wheezing, and no accessory muscle usage. Abdominal: soft, nontender to palpation, no guarding, no appreciable organomegaly Ext: ROM intact. No gross muscle atrophy, no edema, no contractures. Tenderness remains to right groin and right medial thigh. Neuro: Speech clear, face symmetrical and CN II-XII grossly intact with no noted focal neuro deficits Psych: Alert and oriented to person, place, time, and situation. Appropriate and pleasant affect. Assessment and Plan of Care: Pseudoaneurysm, partially thrombosed 7 cm pseudoaneurysm in the right groin -Vascular surgery following, repeating Doppler to determine if patient will need to undergo potential vascular surgery tentatively scheduled for this afternoon. -Interventional radiology consulted, stating percutaneous treatment is deferred secondary to risk of nontarget thrombosis. -Cardiology following -Neurovascular checks right lower extremity every 2-4 hours -Telemetry monitoring -Hold anticoagulation with Eliquis at this time pending further recommendations of vascular surgery and interventional radiology. -Safe and supportive care with pain management. Atrial fibrillation -Hold anticoagulation with Eliquis at this time pending further recommendations of vascular surgery due to possible surgical intervention. Hypertension -Monitor vital signs and continue daily medication regimen with the amiodarone. CODE STATUS: Full code DVT prophylaxis: SCDs, we will hold eliquis at this time pending Discussed with: Patient and RN Anticipated discharge date: Clinical course to determine Anticipated discharge place: Home A total of 45 minutes was spent on the care of this complex patient more than 50% of the time was spent in counseling and care coordination. Objective - Vital Signs Vital signs: Vital Signs Temp 97.9 F 09/07/21 01:10 Pulse 68 09/07/21 01:10 Resp 16 09/07/21 01:10 BP 106/57 09/07/21 01:10 Pulse Ox 97 09/07/21 01:10 Intake & Output 09/06/21 09/07/21 09/07/21 18:59 06:59 18:59 Intake Total 1328 Balance 1328 Intake: Intake, IV Titration 1090 Amount Sodium Chloride 0.9% 1, 1040 000 ml @ 130 mls/hr IV . Q7H42M [facility] Rx#:[id number] cefTRIAXone 1 gm In 50 Sodium Chloride 0.9% 50 ml @ 100 mls/hr IVPB Q24HR [facility] Rx#:[id number] Oral 238 Other: Voiding Method External Catheter # Voids 2 - Labs CBC & Chem 7: 09/07/21 06:47 09/07/21 06:47 Labs: Abnormal Lab Results - Last 24 Hours (Table) 09/06/21 09/07/21 Range/Units 15:56 06:47 RBC 3.16 L 2.91 L (3.80-5.40) m/uL Hgb 9.2 L D 8.5 L (11.4-16.0) gm/dL Hct 28.8 L 27.3 L (34.0-46.0) % Microbiology - Last 24 Hours (Table) 09/06/21 08:07 Urine Culture - Preliminary Urine,Clean Catch <GoSamer A - Last Filed: 09/07/21 15:59> Subjective agree with note and plan Objective - Vital Signs Vital signs: Vital Signs Temp 96.8 F L 09/07/21 12:19 Pulse 62 09/07/21 12:19 Resp 18 09/07/21 12:19 BP 184/81 09/07/21 12:19 Pulse Ox 99 09/07/21 12:19 Intake & Output 09/06/21 09/07/21 09/07/21 18:59 06:59 18:59 Intake Total 1328 1251 Balance 1328 1251 Weight 111.13 kg Intake: IV 1251 Intake, IV Titration 1090 Amount Sodium Chloride 0.9% 1, 1040 000 ml @ 130 mls/hr IV . Q7H42M [facility] Rx#:[id number] cefTRIAXone 1 gm In 50 Sodium Chloride 0.9% 50 ml @ 100 mls/hr IVPB Q24HR [facility] Rx#:[id number] Oral 238 Blood Product 0 Rc As-1 Unit 0 [id number] Other: Voiding Method External Catheter Toilet External Catheter # Voids 2 - Labs CBC & Chem 7: 09/07/21 06:47 09/07/21 06:47 Labs: Abnormal Lab Results - Last 24 Hours (Table) 09/06/21 09/06/21 09/07/21 Range/Units 12:29 15:56 06:47 RBC 3.16 L 2.91 L (3.80-5.40) m/uL Hgb 9.2 L D 8.5 L (11.4-16.0) gm/dL Hct 28.8 L 27.3 L (34.0-46.0) % Chloride (96-109) mmol/L Anion Gap (10.00-18.00) mmol/L BUN/Creatinine Ratio (12.00-20.00) Ratio Calcium (8.7-10.3) mg/dL Alkaline Phosphatase (41-126) U/L Total Protein (6.2-8.2) g/dL Albumin (3.8-4.9) g/dL Crossmatch See Detail 09/07/21 Range/Units 06:47 RBC (3.80-5.40) m/uL Hgb (11.4-16.0) gm/dL Hct (34.0-46.0) % Chloride 111 H (96-109) mmol/L Anion Gap 9.80 L (10.00-18.00) mmol/L BUN/Creatinine Ratio 27.74 H (12.00-20.00) Ratio Calcium 8.4 L (8.7-10.3) mg/dL Alkaline Phosphatase 128 H (41-126) U/L Total Protein 5.2 L (6.2-8.2) g/dL Albumin 3.4 L (3.8-4.9) g/dL Crossmatch Microbiology - Last 24 Hours (Table) 09/06/21 08:07 Urine Culture - Preliminary Urine,Clean Catch Gram Neg Bacilli
[2021-09-07] MEDS ORDERED: LABETALOL SYRINGE 5 MG/ML IVP ONE (17:36)
--- NOTE | 2021-09-07 17:43 | P.OP ---
Date of Procedure: 09/07/21 Preoperative Diagnosis: Right common femoral artery pseudoaneurysm, not amenable to percutaneous thrombin injection. Postoperative Diagnosis: Same. Procedure(s) Performed: #1: Open surgical repair of a right common femoral artery pseudoaneurysm. #2: Application of an durable wound VAC. Implants: None. Anesthesia: MONSTER Surgeon: Nando Lane Data Support Analyst #1: Berna Hui Estimated Blood Loss (ml): 250 Pathology: none sent Condition: stable Disposition: floor Indications for Procedure: Patient is a 70-year-old female who is status post cardiac intervention from a right femoral artery approach. This is performed for 6 weeks prior. She developed pain and swelling in the right inguinal area. Computed tomography scan and duplex of the area demonstrated findings consistent with a pseudoaneurysm. No identifiable neck was able to be demonstrated and thus was felt that a thrombin injection was not indicated leaving only open surgical repair. The procedure, risks and benefits were discussed with the patient all questions were answered to patient's satisfaction. Consent form was signed. Description of Procedure: Patient was brought the upper and placed in the supine position and administered general endotracheal anesthesia administered by the department of anesthesiology. Hui catheter was placed to gravity drainage. The patient received 1 g of vancomycin intravenously in the perioperative phase for prophylactic antibiotic therapy. The patient's right lower extremity and lower abdominal area were sterilely prepped and draped in usual manner. Skin incision was made over the right inguinal area and extended proximally and distally. Hemostasis was achieved using electrocautery. The incision was deepened through the subcutaneous tissues. Attention was directed to the most superior portion of the incision. Large amount of inflammatory reaction was encountered throughout the entire inguinal area. Careful dissection was utilized to identify the proximal portion of the femoral artery. It was eventually necessary to transect partially the inguinal ligament to gain control of the distal portion of the external iliac artery. Vessel loop was placed about this area. Arterial bleeding was encountered and this was controlled with Prolene suture. Once this area was controlled H was systemically heparinized. ACT was drawn and was measured at 222. The subcutaneous incision was extended inferiorly over the pseudoaneurysm sac. Again a marked inflammatory response was encountered making dissection difficult. The aneurysm sac was incised and a large amount of thrombus was removed. The sac was excised to a large extent. His then undertaken. The artery was eventually identified. Excellent pulse within the femoral artery was noted. The dissection was then carried cephalad to the area of the neck of the pseudoaneurysm. Neck was eventually identified clearly and skeletonized. Was then clamped and transected. The neck was then oversewed with 5-0 Prolene suture. The wound was Irrigated with saline solution. A drain was placed in the deep tissues and brought out through a separate stab wound. No points of bleeding were identified. Deep tissues were closed with 2-0 Vicryl in multiple layers. Skin was reapproximated with skin rhea. Provina VAC was placed over the wound. Patient tolerated the procedure well, was extubated and transferred to the recovery area satisfactory and stable condition.
[2021-09-07] MEDS ORDERED: hydrALAZINE HCL 20 MG/ML 1 ML VIAL IVP ONE ×3 (17:54→18:33)
[2021-09-07] MEDS ORDERED: HYDROmorphone 0.5 MG/0.5 ML SYRINGE IVP ONE (18:25)
[2021-09-07] MEDS ORDERED: HYDROmorphone 0.5 MG/0.5 ML SYRINGE IVP PRN (20:42)
[2021-09-07] MEDS ORDERED: METOCLOPRAMIDE 5 MG/ML 2 ML VIAL IVP PRN (20:42)
[2021-09-07] MEDS ORDERED: LIDOCAINE 1% (10MG/ML) FOR IV START INTRADERMA PRN (20:42)
[2021-09-07] MEDS ORDERED: DEXAMETHASONE SOD PHOSPHATE 4 MG/ML 1 ML VIAL IV ONE (20:42)
[2021-09-07] MEDS: MAGNESIUM SULFATE-D5W PMX 1 GM in DEXTROSE/WATER 1 100ML.BAG IVPB SCH (20:46)
[2021-09-07] MEDS: LACTATED RINGERS 1,000 ML IV SCH (21:00)
[2021-09-08] MEDS: SODIUM CHLORIDE 0.9% 1,000 ML IV SCH ×3 (00:25→14:16)
[2021-09-08] MEDS: LOSARTAN 50 MG TAB PO SCH ×2 (03:02→20:08)
[2021-09-08] MEDS: MORPHINE SULFATE 4 MG/ML SYRINGE IV PRN ×4 (08:01→22:49)
[2021-09-08] MEDS: AMIODARONE 100 MG TAB PO SCH ×2 (08:02→20:08)
[2021-09-08] MEDS: METOPROLOL SUCCINATE (ER) 25 MG TAB.ER.24H PO SCH (08:02)
[2021-09-08] MEDS: CLINDAMYCIN 150 MG CAP PO SCH ×3 (08:03→20:08)
[2021-09-08 10:18] LABS: HCT 28.8 % (34.0-46.0); HGB 9.2 gm/dL (11.4-16.0); Hypochromasia Slight; MCH 28.8 pg (25.0-35.0); MCV 89.8 fL (80.0-100.0); Mean Platelet Volume 9.4; Platelet Count 179 k/uL (150-450); RBC 3.21 m/uL (3.80-5.40); RDW 14.9 % (11.5-15.5); WBC 7.9 k/uL (3.8-10.6)
[2021-09-08 10:32] LABS: Albumin 2.7 g/dL (3.5-5.0); Calcium 8.4 mg/dL (8.4-10.2); Magnesium 1.5 mg/dL (1.6-2.3); Potassium 3.9 mmol/L (3.5-5.1); Total Bilirubin 1.4 mg/dL (0.2-1.3); Total Protein 5.2 g/dL (6.3-8.2)
--- NOTE | 2021-09-08 11:39 | P.PN ---
Subjective Progress Note Date: 09/08/21 Patient is seen and examined lying down. She is postop day #1 for open surgical repair of the right common femoral artery pseudoaneurysm. She states she has some discomfort in her right leg and groin site where the surgical incision is. She has a WALE drain intact with minimal small amount of serosanguineous drainage. She denies any chest pain or shortness of breath. Objective - Vital Signs Vital signs: Vital Signs Temp 98.5 F 09/08/21 08:00 Pulse 70 09/08/21 08:00 Resp 18 09/08/21 08:00 BP 165/68 09/08/21 08:00 Pulse Ox 96 09/08/21 08:00 Intake & Output 09/07/21 09/08/21 09/08/21 18:59 06:59 18:59 Intake Total 2471 240 110 Output Total 924 710 Balance 1547 -470 110 Weight 111.13 kg Intake: IV 1851 Oral 240 110 Blood Product 620 Rc As-1 Unit 310 [id number] Rc As-1 Unit 310 [id number] Other 0 Rc As-1 Unit 0 [id number] Rc As-1 Unit 0 [id number] Output: Drainage 10 Right Groin 10 Urine 324 700 Estimated Blood Loss 600 Other: Voiding Method Toilet Indwelling Catheter Indwelling Catheter External Catheter - Exam General appearance: The patient is alert, oriented, appears in no acute distress. HET: Head is normocephalic and atraumatic. Neck: Supple without lymphadenopathy. Trachea midline. Heart: S1 S2. Regular rate and rhythm. Lungs: No crackles or wheezes are heard. Abdomen: Soft, nontender, nondistended. Extremities: Right thigh with some noted bruising and tenderness, surgical incision sites with dressings clean dry and intact. WALE drain present with minimal amount of serosanguineous drainage. Patient is able to move her right lower extremity and wiggle her toes it is warm to the touch. +2 palpable DP pulse. Neurological: No focal deficits. Strength and sensation are grossly intact. - Labs CBC & Chem 7: 09/08/21 09:55 09/08/21 09:55 Labs: Abnormal Lab Results - Last 24 Hours (Table) 09/06/21 09/07/21 Range/Units 12:29 06:47 Chloride 111 H (96-109) mmol/L Anion Gap 9.80 L (10.00-18.00) mmol/L BUN/Creatinine Ratio 27.74 H (12.00-20.00) Ratio Calcium 8.4 L (8.7-10.3) mg/dL Alkaline Phosphatase 128 H (41-126) U/L Total Protein 5.2 L (6.2-8.2) g/dL Albumin 3.4 L (3.8-4.9) g/dL Crossmatch See Detail Microbiology - Last 24 Hours (Table) 09/06/21 08:07 Urine Culture - Preliminary Urine,Clean Catch Gram Neg Bacilli Assessment and Plan Assessment: 1. Post-op day #1 been surgical repair of right common femoral artery pseudoaneurysm 2. Pseudoaneurysm right groin with active bleeding 3. Right groin pain 4. Cardiac cath and cardiac ablation done in June 2021 5. History of atrial fibrillation 6. History of coronary artery disease Plan: 1. Keep WALE drain in for now 2. Patient may resume Eliquis tomorrow 3. Recommend physical therapy to help increase ambulation 4. Diet as tolerated 5. Repeat CBC daily 6. Encourage ambulation The impression and plan of care has been dictated as directed. Dr. Monge I performed a history and examination of this patient, discussed the same with the dictator. I agree with the dictator's note ,documented as a scribe. Any additional findings or plans will be noted.
--- NOTE | 2021-09-08 12:39 | P.PN ---
Subjective This is a 70-year-old female with a past medical history significant for hypertension, paroxysmal atrial fibrillation, and hypertrophic cardiomyopathy. Patient follows in the office with Dr. Vaughan. We have been asked to see the patient in consultation for pseudo-aneurysm. Patient underwent atrial fibrillation ablation on 07/19/2021. Patient states she has been doing well over the past 2 months. She stated over the past couple days she has been having some nerve pain in her right lower extremity but was not having a rash. She went to her primary care physician and was prescribed acyclovir for possible shingles. She states yesterday when she got home she was sitting down when she suddenly was having difficulty moving her leg and noticed a large bulge in her right groin and presented to emergency department for further management. She underwent CT revealing large acute on chronic hematoma in the right groin region with evidence of pseudoaneurysm and some localized contrast extravasation medial to the femoral artery. Vascular was consulted. On 09/07/11 patient underwent open surgical repair of a right common femoral artery pseudoaneurysm and wound vac placement 09/08/21 Patient examined this morning at the bedside. Patient denies chest pain or pressure. She denies shortness of breath. She is having some discomfort at the right groin incision site. WALE drain present. Her vital signs are stable. She is maintaining sinus mechanism heart rate 60s70s. Labs reviewed, WBC 7.9, hemoglobin 9.2, platelets 179, sodium 134, potassium 3.9, BUN 13, serum creatinine 0.7. PHYSICAL EXAM: VITAL SIGNS: Reviewed. GENERAL: Well-developed in no acute distress. HEENT: Neck supple. No JVD LUNGS: Respirations even and unlabored. Lungs essentially clear to auscultation bilaterally. HEART: Regular rate and rhythm. S1 and S2 heard. Systolic murmur noted. ABDOMEN: Soft. Nondistended. Nontender. EXTREMITIES: Normal range of motion. No clubbing or cyanosis. Peripheral pulses intact.Surgical incision right groin site with dressings clean dry and intact. WALE drain present with serosanguineous drainage NEUROLOGIC: Awake and alert. Oriented x 3. ASSESSMENT: Right groin pseudoaneurysm Pseudoaneurysm right groin Paroxysmal atrial fibrillation with recent ablation on 07/19/2021 Hypertension Hypertrophic cardiomyopathy PLAN: Continue cardiac medications Start Eliquis tomorrow 09/09/21 morning Vascular following Further recommendations pending patient course Nurse practitioner note has been reviewed by physician. Signing provider agrees with the documented findings, assessment, and plan of care. Objective - Vital Signs Vital signs: Vital Signs Temp 98.5 F 09/08/21 08:00 Pulse 70 09/08/21 08:00 Resp 18 09/08/21 08:00 BP 165/68 09/08/21 08:00 Pulse Ox 96 09/08/21 08:00 Intake & Output 09/07/21 09/08/21 09/08/21 18:59 06:59 18:59 Intake Total 2471 240 110 Output Total 924 710 Balance 1547 -470 110 Weight 111.13 kg Intake: IV 1851 Oral 240 110 Blood Product 620 Rc As-1 Unit 310 [id number] Rc As-1 Unit 310 [id number] Other 0 Rc As-1 Unit 0 [id number] Rc As-1 Unit 0 [id number] Output: Drainage 10 Right Groin 10 Urine 324 700 Estimated Blood Loss 600 Other: Voiding Method Toilet Indwelling Catheter Indwelling Catheter External Catheter - Labs CBC & Chem 7: 09/08/21 09:55 09/08/21 09:55 Labs: Abnormal Lab Results - Last 24 Hours (Table) 09/06/21 09/08/21 09/08/21 Range/Units 12:29 09:55 09:55 RBC 3.21 L (3.80-5.40) m/uL Hgb 9.2 L (11.4-16.0) gm/dL Hct 28.8 L (34.0-46.0) % Sodium 134 L (137-145) mmol/L Chloride 109 H (98-107) mmol/L Glucose 121 H (74-99) mg/dL Magnesium 1.5 L (1.6-2.3) mg/dL Total Bilirubin 1.4 H (0.2-1.3) mg/dL Total Protein 5.2 L (6.3-8.2) g/dL Albumin 2.7 L (3.5-5.0) g/dL Crossmatch See Detail Microbiology - Last 24 Hours (Table) 09/06/21 08:07 Urine Culture - Final Urine,Clean Catch Escherichia coli
--- NOTE | 2021-09-08 13:44 | P.PN ---
<Chadwick Vivas - Last Filed: 09/08/21 13:33> Subjective Progress Note Date: 09/08/21 Hospital course: Patient is a very pleasant 70-year-old female with a past medical history of CAD with hypertrophic cardiomyopathy, hypertension, and paroxysmal atrial fibrillation on Eliquis. She presented to the emergency department on 09/04/21 with a chief complaint of swelling and pain to her right groin. She underwent ultrasound which revealed evidence of a pseudoaneurysm with a 7.3 x 7.2 x 6.8 cm complex mass suggestive of a partially thrombosed pseudoaneurysm. Patient was admitted to our services with consultation to vascular surgery. She underwent a CTA of abdomen and pelvis with runoff which revealed a large acute and chronic hematoma in the right groin region with evidence of pseudoaneurysm and localized contrast extravasation medial to the femoral artery enlarged when compared to ultrasound completed the day before, consistent with active bleeding. Interventional radiology was then consulted to evaluate for for possible ultrasound-guided thrombin injection. Physical exam: Patient seen and fully evaluated at the bedside. She is currently day 1 postop status post repair of right femoral artery pseudoaneurysm. Upon assessment patient in supine position reports mild pain in right groin and right medial thigh remains. Upon assessment patient has postoperative dressing intact with no signs of bleeding or drainage. Patient does have bruising to surrounding area and WALE drain is in place with small amount of serosanguineous fluid in collection chamber. Sensation and movement of right lower extremity remains intact. Distal extremity skin warm and dry with Refill less than 2 seconds. Posterior tibial pulse intact. Patient denies having any other complaints or concerns including lightheadedness, dizziness, chest pain, palpitations, shortness of breath, abdominal pain or nausea. Morning labs reviewed. Hemoglobin stable at 9.2. Mild hyponatremia with sodium of 134, hypomagnesemia with magnesium of 1.5 orders placed for replacement 3 g IVPB, and bilirubin slightly elevated at 1.4 likely secondary to NPO status yesterday. Will continue to monitor with repeat a.m. labs. Vital signs reviewed and stable. General: Nontoxic, no distress and appears stated age. Derm: Skin warm and dry, normal coloration for ethnicity. Head: Atraumatic, normocephalic and symmetric. Eyes: EOMs intact, no lid lag, and anicteric sclera Mouth: no lip lesions, mucus membranes moist Cardiovascular: regular rate and rhythm with normal S1S2, grade III systolic murmur, positive posterior tibial pulses bilaterally, and cap refill < 2 seconds. Lungs: Respirations even, regular, and unlabored on room air. Lungs CTA bilaterally, no rhonchi, no rales, no wheezing, and no accessory muscle usage. Abdominal: soft, nontender to palpation, no guarding, no appreciable organomegaly Ext: ROM intact. No gross muscle atrophy, no edema, no contractures. Tenderness remains to right groin and right medial thigh, postoperative dressing in place. Mild bruising surrounding right groin as well as right anterior and medial thigh. WALE drain in place. Neuro: Speech clear, face symmetrical and CN II-XII grossly intact with no noted focal neuro deficits Psych: Alert and oriented to person, place, time, and situation. Appropriate and pleasant affect. Assessment and Plan of Care: Pseudoaneurysm, partially thrombosed 7 cm pseudoaneurysm in the right groin -Vascular surgery following, repeating Doppler to determine if patient will need to undergo potential vascular surgery tentatively scheduled for this afternoon. -Interventional radiology consulted, stating percutaneous treatment is deferred secondary to risk of nontarget thrombosis. -Cardiology following -Neurovascular checks right lower extremity every 2-4 hours -Telemetry monitoring -Hold anticoagulation with Eliquis at this time pending further recommendations of vascular surgery and interventional radiology. -Safe and supportive care with pain management. Hypomagnesemia, replaced -We will continue to monitor with repeat a.m. labs and replace abnormal electrolyte values as needed. Atrial fibrillation -Patient cleared by cardiology and vascular surgery to resume anticoagulation with Eliquis tomorrow. Hypertension -Monitor vital signs and continue daily medication regimen with the amiodarone. CODE STATUS: Full code DVT prophylaxis: SCDs, patient to resume anticoagulation with Eliquis tomorrow. Discussed with: Patient and RN Anticipated discharge date: Clinical course to determine Anticipated discharge place: Home A total of 40 minutes was spent on the care of this complex patient more than 50% of the time was spent in counseling and care coordination. Objective - Vital Signs Vital signs: Vital Signs Temp 98.2 F 09/08/21 02:59 Pulse 71 09/08/21 02:59 Resp 20 09/08/21 02:59 BP 166/66 09/08/21 02:59 Pulse Ox 98 09/08/21 02:59 Intake & Output 09/07/21 09/08/21 09/08/21 18:59 06:59 18:59 Intake Total 2471 240 Output Total 924 710 Balance 1547 -470 Weight 111.13 kg Intake: IV 1851 Oral 240 Blood Product 620 Rc As-1 Unit 310 [id number] Rc As-1 Unit 310 [id number] Other 0 Rc As-1 Unit 0 [id number] Rc As-1 Unit 0 [id number] Output: Drainage 10 Right Groin 10 Urine 324 700 Estimated Blood Loss 600 Other: Voiding Method Toilet Indwelling Catheter External Catheter - Labs CBC & Chem 7: 09/08/21 09:55 09/08/21 09:55 Labs: Abnormal Lab Results - Last 24 Hours (Table) 09/06/21 09/07/21 Range/Units 12:29 06:47 Chloride 111 H (96-109) mmol/L Anion Gap 9.80 L (10.00-18.00) mmol/L BUN/Creatinine Ratio 27.74 H (12.00-20.00) Ratio Calcium 8.4 L (8.7-10.3) mg/dL Alkaline Phosphatase 128 H (41-126) U/L Total Protein 5.2 L (6.2-8.2) g/dL Albumin 3.4 L (3.8-4.9) g/dL Crossmatch See Detail Microbiology - Last 24 Hours (Table) 09/06/21 08:07 Urine Culture - Preliminary Urine,Clean Catch Gram Neg Bacilli <Calvin Stiles A - Last Filed: 09/09/21 10:48> Subjective agree with note and plan Objective - Vital Signs Vital signs: Vital Signs Temp 98.1 F 09/09/21 08:00 Pulse 66 09/09/21 08:00 Resp 20 09/09/21 08:00 BP 188/76 09/09/21 08:00 Pulse Ox 97 09/09/21 08:00 Intake & Output 09/08/21 09/09/21 09/09/21 18:59 06:59 18:59 Intake Total 110 118 Output Total 700 160 75 Balance -590 -160 43 Intake: Oral 110 118 Output: Drainage 110 75 Right Groin 110 75 Urine 700 50 Other: Voiding Method Indwelling Catheter Indwelling Catheter Indwelling Catheter # Voids 1 1 1 - Labs CBC & Chem 7: 09/09/21 08:29 09/09/21 08:29 Labs: Abnormal Lab Results - Last 24 Hours (Table) 09/09/21 09/09/21 Range/Units 08:29 08:29 RBC 3.22 L (3.80-5.40) m/uL Hgb 9.3 L (11.4-16.0) gm/dL Hct 29.1 L (34.0-46.0) % Sodium 134 L (137-145) mmol/L Total Bilirubin 1.6 H (0.2-1.3) mg/dL Total Protein 5.4 L (6.3-8.2) g/dL Albumin 2.8 L (3.5-5.0) g/dL Microbiology - Last 24 Hours (Table) 09/06/21 08:07 Urine Culture - Final Urine,Clean Catch Escherichia coli
[2021-09-08] MEDS: SENNOSIDES 8.6 MG TAB PO SCH (14:08)
[2021-09-08] MEDS: MAGNESIUM SULFATE-D5W PMX 1 GM in DEXTROSE/WATER 1 100ML.BAG IVPB SCH ×3 (14:10→20:09)
[2021-09-09] MEDS: LACTATED RINGERS 1,000 ML IV SCH ×2 (02:19→17:55)
[2021-09-09] MEDS: SODIUM CHLORIDE 0.9% 1,000 ML IV SCH ×4 (02:19→17:55)
[2021-09-09 08:59] LABS: HCT 29.1 % (34.0-46.0); HGB 9.3 gm/dL (11.4-16.0); Hypochromasia Slight; MCHC 32.1 g/dL (31.0-37.0); MCV 90.3 fL (80.0-100.0); Mean Platelet Volume 8.6; Platelet Count 177 k/uL (150-450); RBC 3.22 m/uL (3.80-5.40); RDW 15.2 % (11.5-15.5); WBC 6.8 k/uL (3.8-10.6)
[2021-09-09] MEDS ORDERED: APIXABAN 5 MG TAB PO SCH (09:00)
[2021-09-09] MEDS: METOPROLOL SUCCINATE (ER) 25 MG TAB.ER.24H PO SCH (09:15)
[2021-09-09] MEDS: SENNOSIDES 8.6 MG TAB PO SCH (09:15)
[2021-09-09] MEDS: CLINDAMYCIN 150 MG CAP PO SCH ×3 (09:15→20:52)
[2021-09-09] MEDS: AMIODARONE 100 MG TAB PO SCH ×2 (09:15→20:52)
[2021-09-09 09:29] LABS: Albumin 2.8 g/dL (3.5-5.0); Calcium 8.4 mg/dL (8.4-10.2); Magnesium 1.9 mg/dL (1.6-2.3); Potassium 3.6 mmol/L (3.5-5.1); Total Bilirubin 1.6 mg/dL (0.2-1.3); Total Protein 5.4 g/dL (6.3-8.2)
--- NOTE | 2021-09-09 09:56 | P.PN ---
Subjective Progress Note Date: 09/09/21 Principal diagnosis: right pseudoaneurysm Patient seen and examined. Doing well overnight but she did have some increased drainage from the WALE drain. She denies any increased pain. Objective - Vital Signs Vital signs: Vital Signs Temp 98.1 F 09/09/21 08:00 Pulse 66 09/09/21 08:00 Resp 20 09/09/21 08:00 BP 188/76 09/09/21 08:00 Pulse Ox 97 09/09/21 08:00 Intake & Output 09/08/21 09/09/21 09/09/21 18:59 06:59 18:59 Intake Total 110 118 Output Total 700 160 Balance -590 -160 118 Intake: Oral 110 118 Output: Drainage 110 Right Groin 110 Urine 700 50 Other: Voiding Method Indwelling Catheter Indwelling Catheter # Voids 1 1 - Exam right groin soft, minimal tenderness. WALE drain with dark blood drainage, no bright red blood. Palpable dp pulse. - Constitutional General appearance: Present: morbidly obese - Respiratory Respiratory: bilateral: CTA - Cardiovascular Rhythm: regular - Psychiatric Psychiatric: Present: A&O x's 3, appropriate affect - Labs CBC & Chem 7: 09/09/21 08:29 09/09/21 08:29 Labs: Abnormal Lab Results - Last 24 Hours (Table) 09/08/21 09/08/21 09/09/21 Range/Units 09:55 09:55 08:29 RBC 3.21 L 3.22 L (3.80-5.40) m/uL Hgb 9.2 L 9.3 L (11.4-16.0) gm/dL Hct 28.8 L 29.1 L (34.0-46.0) % Sodium 134 L (137-145) mmol/L Chloride 109 H (98-107) mmol/L Glucose 121 H (74-99) mg/dL Magnesium 1.5 L (1.6-2.3) mg/dL Total Bilirubin 1.4 H (0.2-1.3) mg/dL Total Protein 5.2 L (6.3-8.2) g/dL Albumin 2.7 L (3.5-5.0) g/dL 09/09/21 Range/Units 08:29 RBC (3.80-5.40) m/uL Hgb (11.4-16.0) gm/dL Hct (34.0-46.0) % Sodium 134 L (137-145) mmol/L Chloride (98-107) mmol/L Glucose (74-99) mg/dL Magnesium (1.6-2.3) mg/dL Total Bilirubin 1.6 H (0.2-1.3) mg/dL Total Protein 5.4 L (6.3-8.2) g/dL Albumin 2.8 L (3.5-5.0) g/dL Microbiology - Last 24 Hours (Table) 09/06/21 08:07 Urine Culture - Final Urine,Clean Catch Escherichia coli Assessment and Plan Assessment: 1. Right femoral artery pseudoaneurysm s/p repair Plan: Continue WALE drain. Pain control. Hold OAC at this time. Monitor H/H.
--- NOTE | 2021-09-09 11:46 | P.PN ---
Subjective Progress Note Date: 09/09/21 Principal diagnosis: Right leg pseudoaneurysm This is Oskar dozier NP, dictating a progress note on behalf of Dr. Vaughan. Patient was interviewed and examined. Patient is a pleasant 70-year-old female who initially presented to the hospital with swelling and pain in the right leg, and was subsequently found to have a right pseudoaneurysm post ablation. Patient reports that she is doing fairly well today, and denies chest pain and shortness of breath. However she does st ate she still bleeding, and has had staph drain her WALE at least 3 times this morning. The initial plan was to start Eliquis today, however we will hold this for now. Patient's hemoglobin is stable at 9.2 at this time. We'll continue to monitor the patient's bleeding and we'll restart Eliquis were appropriate. GENERAL: Well-appearing, well-nourished and in no acute distress. NECK: Supple without JVD or thyromegaly. LUNGS: Breath sounds clear to auscultation bilaterally. Respiration equal and unlabored. No wheezes, rales or rhonchi. HEART: Regular rate and rhythm without murmurs, rubs or gallops. S1 and S2 heard. EXTREMITIES: Normal range of motion, no edema. No clubbing or cyanosis. Peripheral pulses intact and strong. VITALS: [Temp 98.1, pulse 66, respirations 20, blood pressure 188/76, O2 saturation 97% on room air] TELEMETRY: [Normal sinus rhythm] LABS: [White count 6.8, hemoglobin 9.3, platelets 177, sodium 134, potassium 3.6, B1 15, creatinine 0.82, magnesium 1.9] IMPRESSION: [Right groin pseudoaneurysm Hypertension Paroxysmal A. fib with recent ablation Hypertrophic cardiomyopathy] PLAN: [Continue cardiac medications Hold Eliquis, we'll continue to evaluate patient's bleeding, monitor labs Follow vascular recommendations Further recommendations pending patient course] The patient has been seen and evaluated. Plan of care has been reviewed and agreed upon by Dr. Vaughan. Objective - Vital Signs Vital signs: Vital Signs Temp 98.1 F 09/09/21 08:00 Pulse 66 09/09/21 08:00 Resp 20 09/09/21 08:00 BP 188/76 09/09/21 08:00 Pulse Ox 97 09/09/21 08:00 Intake & Output 09/08/21 09/09/21 09/09/21 18:59 06:59 18:59 Intake Total 110 118 Output Total 700 160 75 Balance -590 -160 43 Intake: Oral 110 118 Output: Drainage 110 75 Right Groin 110 75 Urine 700 50 Other: Voiding Method Indwelling Catheter Indwelling Catheter Indwelling Catheter # Voids 1 1 1 - Labs CBC & Chem 7: 09/09/21 08:29 09/09/21 08:29 Labs: Abnormal Lab Results - Last 24 Hours (Table) 09/09/21 09/09/21 Range/Units 08:29 08:29 RBC 3.22 L (3.80-5.40) m/uL Hgb 9.3 L (11.4-16.0) gm/dL Hct 29.1 L (34.0-46.0) % Sodium 134 L (137-145) mmol/L Total Bilirubin 1.6 H (0.2-1.3) mg/dL Total Protein 5.4 L (6.3-8.2) g/dL Albumin 2.8 L (3.5-5.0) g/dL Microbiology - Last 24 Hours (Table) 09/06/21 08:07 Urine Culture - Final Urine,Clean Catch Escherichia coli
--- NOTE | 2021-09-09 12:30 | P.PN ---
Subjective Progress Note Date: 09/09/21 Had increased output from the WALE drain overnight. Vascular evaluated pt and would like to hold off on OAC for now. Pt has no complaints, UA growing E coli and patient is on clindamycin. Objective - Vital Signs Vital signs: Vital Signs Temp 98 F 09/09/21 11:49 Pulse 61 09/09/21 11:49 Resp 20 09/09/21 11:49 BP 143/64 09/09/21 11:49 Pulse Ox 99 09/09/21 11:49 Intake & Output 09/08/21 09/09/21 09/09/21 18:59 06:59 18:59 Intake Total 110 118 Output Total 700 160 85 Balance -590 -160 33 Intake: Oral 110 118 Output: Drainage 110 85 Right Groin 110 85 Urine 700 50 Other: Voiding Method Indwelling Catheter Indwelling Catheter Indwelling Catheter # Voids 1 1 1 - Exam Gen: awake, alert HEENT: normocephalic, atraumatic, good hearing acuity, moist mucous membranes Resp: good air exchange, breathing comfortably with no accessory muscle use CVS: good distal perfusion x 4, GI: soft, NTTP, ND : no SPT, no CVAT, blake catheter is present MSK: no pitting edema, no clubbing Neuro: non-focal, moving all extremities Psych: cooperative, euthymic mood - Labs CBC & Chem 7: 09/09/21 08:29 09/09/21 08:29 Labs: Abnormal Lab Results - Last 24 Hours (Table) 09/09/21 09/09/21 Range/Units 08:29 08:29 RBC 3.22 L (3.80-5.40) m/uL Hgb 9.3 L (11.4-16.0) gm/dL Hct 29.1 L (34.0-46.0) % Sodium 134 L (137-145) mmol/L Total Bilirubin 1.6 H (0.2-1.3) mg/dL Total Protein 5.4 L (6.3-8.2) g/dL Albumin 2.8 L (3.5-5.0) g/dL Microbiology - Last 24 Hours (Table) 09/06/21 08:07 Urine Culture - Final Urine,Clean Catch Escherichia coli Assessment and Plan Assessment: Pseudoaneurysm, partially thrombosed 7 cm pseudoaneurysm in the right groin -Vascular surgery following -Interventional radiology consulted -Cardiology following -Neurovascular q 2-4 hours -Telemetry monitoring -Hold anticoagulation with Eliquis at this time pending further recommendations of vascular surgery and interventional radiology. -Safe and supportive care with pain management. Complicated UTI versus Asymptomatic Bacteriuria -patient is currently on clindamycin, no symptoms of cystitis -rec'd one dose of ceftriaxone -E coli, pansensitive growing on UCx Paroxysmal Atrial fibrillation -Return to OAC once cleared to do so by vascular surgery -Continue metoprolol and amiodarone Hypertension -Losartan, metoprolol, amiodarone CODE STATUS: Full code DVT prophylaxis: SCDs Anticipated discharge place: Home
[2021-09-09] MEDS: MORPHINE SULFATE 4 MG/ML SYRINGE IV PRN (16:59)
[2021-09-09] MEDS: LOSARTAN 50 MG TAB PO SCH (20:52)
[2021-09-10 08:29] LABS: HCT 27.2 % (34.0-46.0); HGB 8.9 gm/dL (11.4-16.0); MCH 29.2 pg (25.0-35.0); MCHC 32.8 g/dL (31.0-37.0); MCV 89.1 fL (80.0-100.0); Platelet Count 178 k/uL (150-450); RBC 3.06 m/uL (3.80-5.40); RDW 15.1 % (11.5-15.5); WBC 6.6 k/uL (3.8-10.6)
[2021-09-10] MEDS: AMIODARONE 100 MG TAB PO SCH ×2 (08:37→21:27)
[2021-09-10] MEDS: METOPROLOL SUCCINATE (ER) 25 MG TAB.ER.24H PO SCH (08:37)
[2021-09-10] MEDS: SENNOSIDES 8.6 MG TAB PO SCH (08:37)
[2021-09-10] MEDS: CLINDAMYCIN 150 MG CAP PO SCH ×3 (08:37→21:27)
[2021-09-10] MEDS: SODIUM CHLORIDE 0.9% 1,000 ML IV SCH ×3 (08:38→21:07)
[2021-09-10] MEDS: MORPHINE SULFATE 4 MG/ML SYRINGE IV PRN ×2 (09:26→16:24)
[2021-09-10] MEDS ORDERED: bisacodyL 10 MG SUPP RECTAL PRN (11:56)
--- NOTE | 2021-09-10 12:04 | P.PN ---
Subjective Progress Note Date: 09/10/21 Pt continues to have significant output from WALE drain, as much as 500cc. Continue holding AC. Pt has not had a stool in 3 days. Objective - Vital Signs Vital signs: Vital Signs Temp 98.3 F 09/10/21 11:47 Pulse 69 09/10/21 11:47 Resp 20 09/10/21 11:47 BP 185/83 09/10/21 11:47 Pulse Ox 93 L 09/10/21 11:47 Intake & Output 09/09/21 09/10/21 09/10/21 18:59 06:59 18:59 Intake Total 118 240 Output Total 150 295 50 Balance -32 -55 -50 Intake: Oral 118 240 Output: Drainage 150 295 50 Right Groin 150 295 50 Other: Voiding Method Toilet Toilet # Voids 3 - Exam Gen: awake, alert HEENT: normocephalic, atraumatic, good hearing acuity, moist mucous membranes Resp: good air exchange, breathing comfortably with no accessory muscle use CVS: good distal perfusion x 4, GI: soft, NTTP, ND : no SPT, no CVAT, blake catheter is present MSK: no pitting edema, no clubbing Neuro: non-focal, moving all extremities Psych: cooperative, euthymic mood - Labs CBC & Chem 7: 09/10/21 08:10 09/09/21 08:29 Labs: Abnormal Lab Results - Last 24 Hours (Table) 09/10/21 Range/Units 08:10 RBC 3.06 L (3.80-5.40) m/uL Hgb 8.9 L (11.4-16.0) gm/dL Hct 27.2 L (34.0-46.0) % Assessment and Plan Assessment: Pseudoaneurysm, partially thrombosed 7 cm pseudoaneurysm in the right groin -Vascular surgery following -Interventional radiology consulted -Cardiology following -Neurovascular q 2-4 hours -Telemetry monitoring -Hold anticoagulation with Eliquis at this time pending further recommendations of vascular surgery and interventional radiology. -Safe and supportive care with pain management. Complicated UTI versus Asymptomatic Bacteriuria -patient is currently on clindamycin, no symptoms of cystitis -rec'd one dose of ceftriaxone -E coli, pansensitive growing on UCx Paroxysmal Atrial fibrillation -Return to OAC once cleared to do so by vascular surgery -Continue metoprolol and amiodarone Hypertension -Losartan, metoprolol, amiodarone CODE STATUS: Full code DVT prophylaxis: SCDs Anticipated discharge place: Home
[2021-09-10] MEDS: bisacodyL 5 MG TABLET.DR PO SCH (12:08)
--- NOTE | 2021-09-10 12:34 | P.PN ---
Subjective Progress Note Date: 09/10/21 The patient was interviewed and examined lying comfortably in bed. She states she did well overnight. No chest pain or chest pressure. No dyspnea, orthopnea, palpitations, dizziness, or lightheadedness. She does have some mild tenderness with positional changes in her right groin and right thigh. The patient states she is very concerned about the amount of drainage overnight. This is notably increased since the drain was placed, with 445 mL over the last 24 hours. GENERAL: Well-appearing, well-nourished and in no acute distress. NECK: Supple without JVD or thyromegaly. LUNGS: Breath sounds clear to auscultation bilaterally. Respiration equal and unlabored. No wheezes, rales or rhonchi. HEART: Regular rate and rhythm. Systolic murmur. No rubs or gallops. S1 and S2 heard. EXTREMITIES: Normal range of motion, no edema. No clubbing or cyanosis. Peripheral pulses intact and strong. He went hematoma noted in right thigh. Right groin WALE drain. VITALS: Blood pressure 180/73, pulse 68, respiratory rate 20, temp 98.4F, SpO2 97% on room air TELEMETRY: Sinus mechanism LABS: WBC 6.6, hemoglobin 8.9, hematocrit 27.2, platelet 178 IMPRESSION: Right groin pseudoaneurysm Hypertension, increase losartan Paroxysmal atrial fibrillation, recent pulmonary vein isolation Hypertrophic cardiomyopathy PLAN: Increase losartan to 50 mg twice daily Recommendations regarding resuming anticoagulation per vascular surgery Further recommendations. Based on clinical course The patient has been seen and evaluated by nurse practitioner and coordinating physician. Plan of care has been reviewed and agreed upon by Dr Vaughan. Objective - Vital Signs Vital signs: Vital Signs Temp 98.3 F 09/10/21 11:47 Pulse 69 09/10/21 11:47 Resp 20 09/10/21 11:47 BP 185/83 09/10/21 11:47 Pulse Ox 93 L 09/10/21 11:47 Intake & Output 09/09/21 09/10/21 09/10/21 18:59 06:59 18:59 Intake Total 118 240 116 Output Total 150 295 100 Balance -32 -55 16 Intake: Oral 118 240 116 Output: Drainage 150 295 100 Right Groin 150 295 100 Other: Voiding Method Toilet Toilet # Voids 3 - Labs CBC & Chem 7: 09/10/21 08:10 01/15/22 08:29 Labs: Abnormal Lab Results - Last 24 Hours (Table) 09/10/21 Range/Units 08:10 RBC 3.06 L (3.80-5.40) m/uL Hgb 8.9 L (11.4-16.0) gm/dL Hct 27.2 L (34.0-46.0) %
--- NOTE | 2021-09-10 12:53 | P.PN ---
Subjective Progress Note Date: 09/10/21 Principal diagnosis: right pseudoaneurysm Per nursing 250cc out of drain. No worsening pain Objective - Vital Signs Vital signs: Vital Signs Temp 98.3 F 09/10/21 11:47 Pulse 69 09/10/21 11:47 Resp 20 09/10/21 11:47 BP 185/83 09/10/21 11:47 Pulse Ox 93 L 09/10/21 11:47 Intake & Output 09/09/21 09/10/21 09/10/21 18:59 06:59 18:59 Intake Total 118 240 116 Output Total 150 295 100 Balance -32 -55 16 Intake: Oral 118 240 116 Output: Drainage 150 295 100 Right Groin 150 295 100 Other: Voiding Method Toilet Toilet # Voids 3 - Labs CBC & Chem 7: 09/10/21 08:10 09/09/21 08:29 Labs: Abnormal Lab Results - Last 24 Hours (Table) 09/10/21 Range/Units 08:10 RBC 3.06 L (3.80-5.40) m/uL Hgb 8.9 L (11.4-16.0) gm/dL Hct 27.2 L (34.0-46.0) % Assessment and Plan Assessment: 1. Right femoral artery pseudoaneurysm s/p repair Plan: Continue WALE drain. Pain control. Hgb stable- ok to start OAC and continue to monitor H/H
[2021-09-10] MEDS: LOSARTAN 50 MG TAB PO SCH ×2 (14:30→21:28)
[2021-09-10] MEDS: LACTATED RINGERS 1,000 ML IV SCH (21:12)
[2021-09-10] MEDS: APIXABAN 2.5 MG TABLET PO SCH (21:27)
[2021-09-11] MEDS: SODIUM CHLORIDE 0.9% 1,000 ML IV SCH ×3 (03:04→13:11)
[2021-09-11] MEDS: APIXABAN 2.5 MG TABLET PO SCH ×2 (08:06→20:09)
[2021-09-11] MEDS: SENNOSIDES 8.6 MG TAB PO SCH (08:06)
[2021-09-11] MEDS: bisacodyL 5 MG TABLET.DR PO SCH (08:06)
[2021-09-11] MEDS: LOSARTAN 50 MG TAB PO SCH ×2 (08:07→20:09)
[2021-09-11] MEDS: AMIODARONE 100 MG TAB PO SCH ×2 (08:07→21:05)
[2021-09-11] MEDS: METOPROLOL SUCCINATE (ER) 25 MG TAB.ER.24H PO SCH (08:07)
[2021-09-11] MEDS: CLINDAMYCIN 150 MG CAP PO SCH ×3 (08:07→23:03)
--- NOTE | 2021-09-11 10:07 | P.PN ---
Subjective Progress Note Date: 09/11/21 Pt doing well today. Had high BP and meds were titrated. Eliquis restarted yesterday with stable hgb. WALE drain output is noted. Still has not had a BM. Objective - Vital Signs Vital signs: Vital Signs Temp 98.3 F 09/11/21 08:00 Pulse 67 09/11/21 08:00 Resp 16 09/11/21 08:00 BP 192/76 09/11/21 08:00 Pulse Ox 97 09/11/21 08:00 Intake & Output 09/10/21 09/11/21 09/11/21 18:59 06:59 18:59 Intake Total 234 Output Total 120 240 Balance 114 -240 Intake: Oral 234 Output: Drainage 120 240 Right Groin 120 240 Other: Voiding Method Toilet # Voids 1 - Exam Gen: awake, alert HEENT: normocephalic, atraumatic, good hearing acuity, moist mucous membranes Resp: good air exchange, breathing comfortably with no accessory muscle use CVS: good distal perfusion x 4, GI: soft, NTTP, ND : no SPT, no CVAT, blake catheter is present MSK: no pitting edema, no clubbing Neuro: non-focal, moving all extremities Psych: cooperative, euthymic mood - Labs CBC & Chem 7: 09/10/21 08:10 09/09/21 08:29 Assessment and Plan Assessment: Pseudoaneurysm, partially thrombosed 7 cm pseudoaneurysm in the right groin -Vascular surgery following -Interventional radiology consulted -Cardiology following -Neurovascular q 2-4 hours -Telemetry monitoring -Hold anticoagulation with Eliquis at this time pending further recommendations of vascular surgery and interventional radiology. -Safe and supportive care with pain management. Complicated UTI versus Asymptomatic Bacteriuria -patient is currently on clindamycin, no symptoms of cystitis -rec'd one dose of ceftriaxone -E coli, pansensitive growing on UCx Paroxysmal Atrial fibrillation -Return to OAC once cleared to do so by vascular surgery -Continue metoprolol and amiodarone Hypertension -Losartan, metoprolol, amiodarone CODE STATUS: Full code DVT prophylaxis: SCDs Anticipated discharge place: Home
[2021-09-11 10:35] LABS: HCT 28.5 % (34.0-46.0); HGB 9.3 gm/dL (11.4-16.0); Hypochromasia Slight; MCH 29.4 pg (25.0-35.0); MCHC 32.6 g/dL (31.0-37.0); MCV 90.2 fL (80.0-100.0); Mean Platelet Volume 8.9; Platelet Count 216 k/uL (150-450); RBC 3.16 m/uL (3.80-5.40); RDW 15.4 % (11.5-15.5); WBC 5.5 k/uL (3.8-10.6)
[2021-09-11] MEDS ORDERED: NA PHOS,M-B/NA PHOS,DI-BA 133 ML ENEMA RECTAL STA (11:48)
[2021-09-11] MEDS: LACTATED RINGERS 1,000 ML IV SCH (13:11)
[2021-09-11 13:34] VITALS: BMI 40.7
--- NOTE | 2021-09-11 14:37 | P.PN ---
Subjective This is a 70-year-old female with a past medical history significant for hypertension, paroxysmal atrial fibrillation, and hypertrophic cardiomyopathy. Patient follows in the office with Dr. Vaughan. We have been asked to see the patient in consultation for pseudo-aneurysm. Patient underwent atrial fibrillation ablation on 07/19/2021. Patient states she has been doing well over the past 2 months. She stated over the past couple days she has been having some nerve pain in her right lower extremity but was not having a rash. She went to her primary care physician and was prescribed acyclovir for possible shingles. She states yesterday when she got home she was sitting down when she suddenly was having difficulty moving her leg and noticed a large bulge in her right groin and presented to emergency department for further management. She underwent CT revealing large acute on chronic hematoma in the right groin region with evidence of pseudoaneurysm and some localized contrast extravasation medial to the femoral artery. Vascular was consulted. On 09/07/11 patient underwent open surgical repair of a right common femoral artery pseudoaneurysm and wound vac placement 09/11/20 Patient examined this morning at the bedside. Patient denies chest pain or pressure. She does have some shortness of breath after therapy or walking. She is having some discomfort at the right groin incision site. WALE drain present with serosanguieous drainage. Her vital signs are stable. She is maintaining sinus mechanism. Labs reviewed, WBC 5.5 hemoglobin 9.3, platelets 216. Her eliquis has been restarted. Her blood pressure was elevated and losartan was increased to 50mg BID. She is constipated no BM for 1 week. PHYSICAL EXAM: VITAL SIGNS: Reviewed. GENERAL: Well-developed in no acute distress. HEENT: Neck supple. No JVD LUNGS: Respirations even and unlabored. Lungs essentially clear to auscultation bilaterally. HEART: Regular rate and rhythm. S1 and S2 heard. Systolic murmur noted. ABDOMEN: Soft. Nondistended. Nontender. EXTREMITIES: Normal range of motion. No clubbing or cyanosis. Peripheral pulses intact.Surgical incision right groin site with dressings clean dry and intact. WALE drain present with serosanguineous drainage NEUROLOGIC: Awake and alert. Oriented x 3. ASSESSMENT: Right groin pseudoaneurysm Pseudoaneurysm right groin Paroxysmal atrial fibrillation with recent ablation on 07/19/2021 Hypertension Hypertrophic cardiomyopathy PLAN: Eliqutracey restarted at 2.5mg BID Continue amiodarone 100 mg twice a day, losartan 50 mg daily, metoprolol 6.25 mg daily Vascular following Further recommendations pending patient course Nurse practitioner note has been reviewed by physician. Signing provider agrees with the documented findings, assessment, and plan of care. Objective - Vital Signs Vital signs: Vital Signs Temp 98.3 F 09/11/21 08:00 Pulse 67 09/11/21 12:08 Resp 16 09/11/21 08:00 BP 192/76 09/11/21 08:00 Pulse Ox 97 09/11/21 08:00 Intake & Output 09/10/21 09/11/21 09/11/21 18:59 06:59 18:59 Intake Total 234 118 Output Total 027 507 8168 Balance 114 -240 -1482 Weight 111.13 kg Intake: Oral 234 118 Output: Drainage 858 963 6057 Right Groin 963 083 1680 Other: Voiding Method Toilet Toilet # Voids 1 # Bowel Movements 1 - Labs CBC & Chem 7: 09/11/21 09:58 09/09/21 08:29 Labs: Abnormal Lab Results - Last 24 Hours (Table) 09/11/21 Range/Units 09:58 RBC 3.16 L (3.80-5.40) m/uL Hgb 9.3 L (11.4-16.0) gm/dL Hct 28.5 L (34.0-46.0) %
--- NOTE | 2021-09-11 15:55 | P.PN ---
Subjective Progress Note Date: 09/11/21 Should seen and examined sitting up in the recliner. States she still has discomfort in the groin but has been up and ambulating to the bathroom. She is voiding without difficulty. There was reported approximately 40-45 mL of serosanguineous drainage from the WALE drain this morning. Appears to be about another 10-20 and now. She's been afebrile. She has not had a bowel movement since she's been admitted to the hospital approximately one week. Hemoglobin is stable at 9.3. She was restarted on her Eliquis. Objective - Vital Signs Vital signs: Vital Signs Temp 98.3 F 09/11/21 08:00 Pulse 67 09/11/21 08:00 Resp 16 09/11/21 08:00 BP 192/76 09/11/21 08:00 Pulse Ox 97 09/11/21 08:00 Intake & Output 09/10/21 09/11/21 09/11/21 18:59 06:59 18:59 Intake Total 234 Output Total 120 240 Balance 114 -240 Intake: Oral 234 Output: Drainage 120 240 Right Groin 120 240 Other: Voiding Method Toilet # Voids 1 - Exam General appearance: The patient is alert, oriented, appears in no acute distress. HET: Head is normocephalic and atraumatic. Neck: Supple without lymphadenopathy. Trachea midline. Abdomen: Soft, nontender, nondistended. Extremities: Right thigh with some noted bruising and tenderness, surgical incis ion sites with dressings marked. Incision well approximated with rhea, with minimal serosanguineous drainage. WALE drain present with small amount of serosanguineous drainage. Patient is able to move her right lower extremity and wiggle her toes it is warm to the touch. +2 palpable DP pulse. Neurological: No focal deficits. Strength and sensation are grossly intact. - Labs CBC & Chem 7: 09/11/21 09:58 09/09/21 08:29 Assessment and Plan Assessment: 1. Post-op day #4 been surgical repair of right common femoral artery pseudoaneurysm 2. Pseudoaneurysm right groin with active bleeding 3. Right groin pain 4. Cardiac cath and cardiac ablation done in June 2021 5. History of atrial fibrillation 6. History of coronary artery disease Plan: 1. Keep WALE drain in 2. Patient may resume Eliquis 3. Encourage ambulation 4. Diet as tolerated 5. Repeat CBC daily 6. Agree with Dulcolax suppository The impression and plan of care has been dictated as directed. Dr. Hui I performed a history and examination of this patient, discussed the same with the dictator. I agree with the dictator's note ,documented as a scribe. Any additional findings or plans will be noted.
[2021-09-12] MEDS: SODIUM CHLORIDE 0.9% 1,000 ML IV SCH ×3 (03:49→20:44)
[2021-09-12 08:45] LABS: HCT 27.6 % (34.0-46.0); HGB 9.2 gm/dL (11.4-16.0); MCH 29.4 pg (25.0-35.0); MCHC 33.2 g/dL (31.0-37.0); MCV 88.6 fL (80.0-100.0); Mean Platelet Volume 9.1; Platelet Count 212 k/uL (150-450); RBC 3.11 m/uL (3.80-5.40); RDW 15.3 % (11.5-15.5); WBC 6.8 k/uL (3.8-10.6)
[2021-09-12] MEDS: AMIODARONE 100 MG TAB PO SCH ×2 (08:55→20:40)
[2021-09-12] MEDS: METOPROLOL SUCCINATE (ER) 25 MG TAB.ER.24H PO SCH (08:56)
[2021-09-12] MEDS: bisacodyL 5 MG TABLET.DR PO SCH ×2 (08:56→11:06)
[2021-09-12] MEDS: SENNOSIDES 8.6 MG TAB PO SCH ×2 (08:56→11:09)
[2021-09-12] MEDS: LOSARTAN 50 MG TAB PO SCH ×2 (08:57→20:40)
[2021-09-12] MEDS: CLINDAMYCIN 150 MG CAP PO SCH (10:31)
--- NOTE | 2021-09-12 11:05 | P.PN ---
Subjective Progress Note Date: 09/12/21 Pt had BM yesterday. Still draining 500cc from WALE drain. Blood count is stable. Objective - Vital Signs Vital signs: Vital Signs Temp 98.1 F 09/12/21 08:05 Pulse 79 09/12/21 08:05 Resp 17 09/12/21 08:05 BP 144/64 09/12/21 08:05 Pulse Ox 96 09/12/21 08:05 Intake & Output 09/11/21 09/12/21 09/12/21 18:59 06:59 18:59 Intake Total 118 240 Output Total 1600 200 20 Balance -1482 -200 220 Weight 111.13 kg Intake: Oral 118 240 Output: Drainage 1600 200 20 Right Groin 1600 200 20 Other: Voiding Method Toilet Toilet # Bowel Movements 1 - Exam Gen: awake, alert HEENT: normocephalic, atraumatic, good hearing acuity, moist mucous membranes Resp: good air exchange, breathing comfortably with no accessory muscle use CVS: good distal perfusion x 4, GI: soft, NTTP, ND : no SPT, no CVAT, blake catheter is present MSK: no pitting edema, no clubbing Neuro: non-focal, moving all extremities Psych: cooperative, euthymic mood - Labs CBC & Chem 7: 09/12/21 08:27 09/09/21 08:29 Labs: Abnormal Lab Results - Last 24 Hours (Table) 09/12/21 Range/Units 08:27 RBC 3.11 L (3.80-5.40) m/uL Hgb 9.2 L (11.4-16.0) gm/dL Hct 27.6 L (34.0-46.0) % Assessment and Plan Assessment: Pseudoaneurysm, partially thrombosed 7 cm pseudoaneurysm in the right groin -Vascular surgery following -Interventional radiology consulted -Cardiology following -Neurovascular q 2-4 hours -Telemetry monitoring -Hold anticoagulation with Eliquis at this time pending further recommendations of vascular surgery and interventional radiology. -Safe and supportive care with pain management. Complicated UTI versus Asymptomatic Bacteriuria -patient is currently on clindamycin, no symptoms of cystitis, will discontinue at this time. -rec'd one dose of ceftriaxone -E coli, pansensitive growing on UCx Paroxysmal Atrial fibrillation -Return to OAC once cleared to do so by vascular surgery -Continue metoprolol and amiodarone Hypertension -Losartan, metoprolol, amiodarone CODE STATUS: Full code DVT prophylaxis: SCDs Anticipated discharge place: Home
[2021-09-12] MEDS: APIXABAN 2.5 MG TABLET PO SCH ×3 (11:06→20:40)
--- NOTE | 2021-09-12 14:13 | P.PN ---
Subjective This is a 70-year-old female with a past medical history significant for hypertension, paroxysmal atrial fibrillation, and hypertrophic cardiomyopathy. Patient follows in the office with Dr. Vaughan. We have been asked to see the patient in consultation for pseudo-aneurysm. Patient underwent atrial fibrillation ablation on 07/19/2021. Patient states she has been doing well over the past 2 months. She stated over the past couple days she has been having some nerve pain in her right lower extremity but was not having a rash. She went to her primary care physician and was prescribed acyclovir for possible shingles. She states yesterday when she got home she was sitting down when she suddenly was having difficulty moving her leg and noticed a large bulge in her right groin and presented to emergency department for further management. She underwent CT revealing large acute on chronic hematoma in the right groin region with evidence of pseudoaneurysm and some localized contrast extravasation medial to the femoral artery. Vascular was consulted. On 09/07/11 patient underwent open surgical repair of a right common femoral artery pseudoaneurysm and wound vac placement 09/12/21 Patient examined this morning at the bedside. Patient denies chest pain or pressure. She denies shortness of breath. She had a bowel movement yesterday. Her pain is controlled. WALE drain present with serosanguieous drainage with 5 00cc. Her vital signs are stable. She is maintaining sinus mechanism. Labs reviewed, WBC 6.8 hemoglobin 9.2, platelets 212. Her eliquis has been restarted. Her blood pressure was elevated and losartan was increased to 50mg BID and her blood pressures have improved. PHYSICAL EXAM: VITAL SIGNS: Reviewed. GENERAL: Well-developed in no acute distress. HEENT: Neck supple. No JVD LUNGS: Respirations even and unlabored. Lungs essentially clear to auscultation bilaterally. HEART: Regular rate and rhythm. S1 and S2 heard. Systolic murmur noted. ABDOMEN: Soft. Nondistended. Nontender. EXTREMITIES: Normal range of motion. No clubbing or cyanosis. Peripheral pulses intact.Surgical incision right groin site with dressings clean dry and intact. WALE drain present with serosanguineous drainage NEUROLOGIC: Awake and alert. Oriented x 3. ASSESSMENT: Right groin pseudoaneurysm Pseudoaneurysm right groin Paroxysmal atrial fibrillation with recent ablation on 07/19/2021 Hypertension Hypertrophic cardiomyopathy PLAN: Eliquis restarted at 2.5mg BID Continue amiodarone 100 mg twice a day, losartan 50 mg BID, metoprolol tartrate 25 mg daily Vascular following Further recommendations pending patient course Nurse practitioner note has been reviewed by physician. Signing provider agrees with the documented findings, assessment, and plan of care. Objective - Vital Signs Vital signs: Vital Signs Temp 98.1 F 09/12/21 11:18 Pulse 68 09/12/21 11:18 Resp 17 09/12/21 11:18 BP 121/59 09/12/21 11:18 Pulse Ox 96 09/12/21 11:18 Intake & Output 09/11/21 09/12/21 09/12/21 18:59 06:59 18:59 Intake Total 118 240 Output Total 1600 200 40 Balance -1482 -200 200 Weight 111.13 kg Intake: Oral 118 240 Output: Drainage 1600 200 40 Right Groin 1600 200 40 Other: Voiding Method Toilet Toilet # Bowel Movements 1 - Labs CBC & Chem 7: 09/12/21 08:27 09/09/21 08:29 Labs: Abnormal Lab Results - Last 24 Hours (Table) 09/12/21 Range/Units 08:27 RBC 3.11 L (3.80-5.40) m/uL Hgb 9.2 L (11.4-16.0) gm/dL Hct 27.6 L (34.0-46.0) %
--- NOTE | 2021-09-12 14:53 | P.PN ---
Subjective Progress Note Date: 09/12/21 Patient seen and examined as follow up. No acute changes. She has been up and ambulating. Still having discomfort in the right groin. She had S[place] 500 mL of serosanguineous drainage out within the last 24 hours. Hemoglobin has remained stable, today repeat is 9.2. Objective - Vital Signs Vital signs: Vital Signs Temp 98.1 F 09/12/21 11:18 Pulse 68 09/12/21 11:18 Resp 17 09/12/21 11:18 BP 121/59 09/12/21 11:18 Pulse Ox 96 09/12/21 11:18 Intake & Output 09/11/21 09/12/21 09/12/21 18:59 06:59 18:59 Intake Total 118 240 Output Total 1600 200 40 Balance -1482 -200 200 Weight 111.13 kg Intake: Oral 118 240 Output: Drainage 1600 200 40 Right Groin 1600 200 40 Other: Voiding Method Toilet Toilet Toilet # Bowel Movements 1 - Exam General appearance: The patient is alert, oriented, appears in no acute distress. HET: Head is normocephalic and atraumatic. Neck: Supple without lymphadenopathy. Trachea midline. Abdomen: Soft, nontender, nondistended. Extremities: Right thigh with some noted bruising and tenderness, surgical incision sites with dressings marked. Incision well approximated with rhea, with minimal serosanguineous drainage. WALE drain present with small amount of serosanguineous drainage. Patient is able to move her right lower extremity and wiggle her toes it is warm to the touch. +2 palpable DP pulse. Neurological: No focal deficits. Strength and sensation are grossly intact. - Labs CBC & Chem 7: 09/12/21 08:27 09/09/21 08:29 Labs: Abnormal Lab Results - Last 24 Hours (Table) 09/12/21 Range/Units 08:27 RBC 3.11 L (3.80-5.40) m/uL Hgb 9.2 L (11.4-16.0) gm/dL Hct 27.6 L (34.0-46.0) % Assessment and Plan Assessment: 1. Post-op day #5 been surgical repair of right common femoral artery pseudoaneurysm 2. Pseudoaneurysm right groin with active bleeding 3. Right groin pain 4. Cardiac cath and cardiac ablation done in June 2021 5. History of atrial fibrillation 6. History of coronary artery disease Plan: 1. Keep WALE drain in 2. Patient may resume Eliquis 3. Encourage ambulation 4. Diet as tolerated 5. Repeat CBC daily 6. Suspect discharge within the next 24-48 hours and incisional drainage i mproves The impression and plan of care has been dictated as directed. Dr. Monge I performed a history and examination of this patient, discussed the same with the dictator. I agree with the dictator's note ,documented as a scribe. Any additional findings or plans will be noted.
[2021-09-12] MEDS: LACTATED RINGERS 1,000 ML IV SCH (21:46)
[2021-09-13] MEDS: SODIUM CHLORIDE 0.9% 1,000 ML IV SCH ×2 (00:43→06:28)
[2021-09-13] MEDS: ACETAMINOPHEN TAB 325 MG TAB PO PRN ×2 (05:42→23:55)
[2021-09-13] MEDS: AMIODARONE 100 MG TAB PO SCH ×2 (09:00→21:54)
[2021-09-13] MEDS: METOPROLOL SUCCINATE (ER) 25 MG TAB.ER.24H PO SCH (09:00)
[2021-09-13] MEDS: APIXABAN 2.5 MG TABLET PO SCH ×2 (09:00→21:54)
[2021-09-13] MEDS: LOSARTAN 50 MG TAB PO SCH ×2 (09:00→21:53)
[2021-09-13] MEDS: SENNOSIDES 8.6 MG TAB PO SCH (10:44)
[2021-09-13] MEDS: bisacodyL 5 MG TABLET.DR PO SCH (10:44)
--- NOTE | 2021-09-13 13:20 | P.PN ---
Subjective Progress Note Date: 09/13/21 (seen at 0945) Principal diagnosis: right groin pain Patient is a 70-year-old female with a known history of hypertrophic obstructive cardiomyopathy, A. fib status post ablation, hypertension, and arthritis who presented with sudden onset of swelling and worsening pain in her right groin. Last time she had access to her right groin was 2 months ago for A. fib ablatio n. In the ER she underwent a Doppler of her lower extremity which showed a 7 cm complex mass in the right groin likely partially thrombosed pseudoaneurysm. She was admitted for further monitoring. Vascular surgery was consulted and her Eliquis was held. She underwent CT abdomen and pelvis which showed large acute and chronic hematoma in the right groin region with evidence of pseudoaneurysm and some localized contrast extravasation medial to the femoral artery. On 09/07 patient underwent open surgical repair of right common femoral artery pseudoaneurysm with application of a wound VAC. She initially had significant output from her WALE drain that was serousanganious, it had been slowly resolving. Patient seen and examined at bedside. No chest pain, SOB, nausea or vomiting. No groin pain, but it is numb. Output from WALE drain is thicker but no change in color. Still with significant edema of right thigh. Patient seen and examined at bedside. General: [non toxic], [no distress], [appears at stated age], obese Derm: [warm], [dry] Head: [atraumatic], [normocephalic], [symmetric] Eyes: [EOMI], [no lid lag], [anicteric sclera] Mouth: [no lip lesion], [mucus membranes moist] Cardiovascular: [S1S2 reg], [with systolic murmur], [positive dorsalis pedis pulse bilateral], Lungs: [CTA bilateral], [no rhonchi, no rales] , [no accessory muscle use] Abdominal: [soft], [ nontender to palpation], [no guarding], [no appreciable organomegaly] Ext: [no gross muscle atrophy], [no contractures], dressing inplace right thing with sanganous WALE drain output, selling right thigh Neuro: [ CN II-XI grossly intact], [no focal neuro deficits] Psych: [Alert], [oriented], [appropriate affect] Pseudoaneurysm, partially thrombosed with active bleeding, right groin -Status post open surgical repair of right common femoral artery pseudoaneurysm with application of wound VAC -Vascular surgery recommendations - cleared for eliquis by vascular surgery - monitor WALE drain output - increase ambulation Paroxysmal A. fib status post ablation - eliquis - cardio recs - Amio, metoprolol Hypertension, controlled - cozaar, metoprolol - follow BP Acute blood loss anemia - stable Hypertropic Cardiomyopathy - outpatinet follow-up Hyponatremia - mild and stable Obesity with BMI 40.8 - structured outpatient weight loss Complicated UTI versus asymptomatic bacteriuria - s/p treatment Hypomagnesemia, resolved DVT prophylaxis: Eliquis Discussed with: [] Anticipated discharge: [] Anticipated discharge place: [] A total of [] minutes was spent on the care of this complex patient more than 50% of the time was spent in counseling and care coordination. Objective - Vital Signs Vital signs: Vital Signs Temp 97.8 F 09/13/21 04:00 Pulse 68 09/13/21 04:00 Resp 18 09/13/21 04:00 BP 146/78 09/13/21 04:00 Pulse Ox 98 09/13/21 04:00 Intake & Output 09/12/21 09/13/21 09/13/21 18:59 06:59 18:59 Intake Total 720 10 Output Total 100 300 Balance 620 -290 Intake: IV 10 Invasive Line 6 10 Oral 720 Output: Drainage 100 300 Right Groin 100 300 Other: Voiding Method Toilet Toilet # Voids 2 - Labs CBC & Chem 7: 09/12/21 08:27 09/09/21 08:29 Labs: Abnormal Lab Results - Last 24 Hours (Table) 09/12/21 Range/Units 08:27 RBC 3.11 L (3.80-5.40) m/uL Hgb 9.2 L (11.4-16.0) gm/dL Hct 27.6 L (34.0-46.0) %
--- NOTE | 2021-09-13 14:04 | P.PN ---
Subjective This is a 70-year-old female with a past medical history significant for hypertension, paroxysmal atrial fibrillation, and hypertrophic cardiomyopathy. Patient follows in the office with Dr. Vaughan. We have been asked to see the patient in consultation for pseudo-aneurysm. Patient underwent atrial fibrillation ablation on 07/19/2021. Patient states she has been doing well over the past 2 months. She stated over the past couple days she has been having some nerve pain in her right lower extremity but was not having a rash. She went to her primary care physician and was prescribed acyclovir for possible shingles. She states yesterday when she got home she was sitting down when she suddenly was having difficulty moving her leg and noticed a large bulge in her right groin and presented to emergency department for further management. She underwent CT revealing large acute on chronic hematoma in the right groin region with evidence of pseudoaneurysm and some localized contrast extravasation medial to the femoral artery. Vascular was consulted. On 09/07/11 patient underwent open surgical repair of a right common femoral artery pseudoaneurysm and wound vac placement 09/13/21 Patient examined this morning at the bedside. Patient denies chest pain or pressure. She denies shortness of breath. Her pain is controlled. WALE drain present with serosanguieous drainage with 300cc. Her vital signs are stable. She is maintaining sinus mechanism. Her eliquis has been restarted. Her blood pressure was elevated and losartan was increased to 50mg BID and her blood pressures have improved. PHYSICAL EXAM: VITAL SIGNS: Reviewed. GENERAL: Well-developed in no acute distress. HEENT: Neck supple. No JVD LUNGS: Respirations even and unlabored. Lungs essentially clear to auscultation bilaterally. HEART: Regular rate and rhythm. S1 and S2 heard. Systolic murmur noted. ABDOMEN: Soft. Nondistended. Nontender. EXTREMITIES: Normal range of motion. No clubbing or cyanosis. Peripheral pulses intact.Surgical incision right groin site with dressings clean dry and intact. WALE drain present with serosanguineous drainage NEUROLOGIC: Awake and alert. Oriented x 3. ASSESSMENT: Right groin pseudoaneurysm Pseudoaneurysm right groin Paroxysmal atrial fibrillation with recent ablation on 07/19/2021 Hypertension Hypertrophic cardiomyopathy PLAN: Eliquis restarted at 2.5mg BID Continue amiodarone 100 mg twice a day, losartan 50 mg BID, metoprolol tartrate 25 mg daily Vascular following Further recommendations pending patient course Nurse practitioner note has been reviewed by physician. Signing provider agrees with the documented findings, assessment, and plan of care. Objective - Vital Signs Vital signs: Vital Signs Temp 97.6 F 09/13/21 11:41 Pulse 64 09/13/21 11:41 Resp 17 09/13/21 11:41 BP 129/62 09/13/21 08:05 Pulse Ox 98 09/13/21 11:41 Intake & Output 09/12/21 09/13/21 09/13/21 18:59 06:59 18:59 Intake Total 720 10 360 Output Total 100 300 140 Balance 620 -290 220 Intake: IV 10 Invasive Line 6 10 Oral 720 360 Output: Drainage 100 300 140 Right Groin 100 300 140 Other: Voiding Method Toilet Toilet Toilet # Voids 2 2 - Labs CBC & Chem 7: 09/12/21 08:27 09/09/21 08:29 Labs: Abnormal Lab Results - Last 24 Hours (Table) 09/06/21 Range/Units 12:29 Crossmatch See Detail
--- NOTE | 2021-09-13 16:30 | P.PN ---
Subjective Progress Note Date: 09/13/21 Patient seen and examined as follow up. No acute changes. She has been up and ambulating. Continues to improve. Hemoglobin is stable at 9.2. She had 300 mL's of serosanguineous drainage from her WALE drain in the last 24 hours. Objective - Vital Signs Vital signs: Vital Signs Temp 97.6 F 09/13/21 11:41 Pulse 64 09/13/21 11:41 Resp 17 09/13/21 11:41 BP 129/62 09/13/21 08:05 Pulse Ox 98 09/13/21 11:41 Intake & Output 09/12/21 09/13/21 09/13/21 18:59 06:59 18:59 Intake Total 720 10 370 Output Total 100 300 185 Balance 620 -290 185 Intake: IV 10 10 Invasive Line 6 10 10 Oral 720 360 Output: Drainage 100 300 185 Right Groin 100 300 185 Other: Voiding Method Toilet Toilet Toilet # Voids 2 2 - Exam General appearance: The patient is alert, oriented, appears in no acute distress. HET: Head is normocephalic and atraumatic. Neck: Supple without lymphadenopathy. Trachea midline. Abdomen: Soft, nontender, nondistended. Extremities: Right thigh with some swelling. Incision well approximated with rhea. WALE drain present with serosanguineous drainage. Patient is able to move her right lower extremity and wiggle her toes it is warm to the touch. +2 palpable DP pulse. Neurological: No focal deficits. Strength and sensation are grossly intact. - Labs CBC & Chem 7: 09/12/21 08:27 09/09/21 08:29 Labs: Abnormal Lab Results - Last 24 Hours (Table) 09/06/21 Range/Units 12:29 Crossmatch See Detail Assessment and Plan Assessment: 1. Post-op day #6 been surgical repair of right common femoral artery pseudoaneurysm 2. Pseudoaneurysm right groin with active bleeding 3. Right groin pain 4. Cardiac cath and cardiac ablation done in June 2021 5. History of atrial fibrillation 6. History of coronary artery disease Plan: 1. Keep WALE drain in 2. Patient may resume Eliquis 3. Encourage ambulation 4. Diet as tolerated 5. Repeat CBC daily 6. Patient is cleared by vascular surgery for discharge. Follow-up with Dr. Monge one week The impression and plan of care has been dictated as directed. Dr. Monge I performed a history and examination of this patient, discussed the same with the dictator. I agree with the dictator's note ,documented as a scribe. Any additional findings or plans will be noted.
[2021-09-13] MEDS: FERROUS SULFATE 325 MG TAB PO SCH (18:02)
[2021-09-13 18:16] VITALS: RESP 16
[2021-09-13 18:57] LABS: % Iron Saturation 10.95 (12.00-45.00)
[2021-09-14 04:04] VITALS: PULSE 64
[2021-09-14] MEDS: ACETAMINOPHEN TAB 325 MG TAB PO PRN (06:00)
[2021-09-14] MEDS: FERROUS SULFATE 325 MG TAB PO SCH (06:42)
[2021-09-14 09:40] VITALS: BP 157/69; TEMP 98.1
[2021-09-14] MEDS: APIXABAN 2.5 MG TABLET PO SCH (09:41)
[2021-09-14] MEDS: METOPROLOL SUCCINATE (ER) 25 MG TAB.ER.24H PO SCH (09:41)
[2021-09-14] MEDS: AMIODARONE 100 MG TAB PO SCH (09:41)
[2021-09-14] MEDS: bisacodyL 5 MG TABLET.DR PO SCH (09:41)
[2021-09-14] MEDS: SENNOSIDES 8.6 MG TAB PO SCH (09:41)
[2021-09-14] MEDS: LOSARTAN 50 MG TAB PO SCH (09:41)
[2021-09-14 11:17] LABS: Basophils % (A) 0 %; Eosinophils # (A) 0.2 k/uL (0-0.7); Eosinophils % (A) 4 %; HCT 27.2 % (34.0-46.0); HGB 8.9 gm/dL (11.4-16.0); Hypochromasia Slight; Lymphocytes # (A) 0.7 k/uL (1.0-4.8); Lymphocytes % (A) 15 %; MCH 29.8 pg (25.0-35.0); MCHC 32.9 g/dL (31.0-37.0); MCV 90.5 fL (80.0-100.0); Mean Platelet Volume 8.5; Monocytes # (A) 0.3 k/uL (0-1.0); Monocytes % (A) 5 %; Neutrophils # (A) 3.6 k/uL (1.3-7.7); Neutrophils % (A) 74 %; Platelet Count 221 k/uL (150-450); RDW 15.3 % (11.5-15.5); WBC 4.9 k/uL (3.8-10.6)
--- NOTE | 2021-09-14 11:25 | P.DS ---
Providers Date of admission: 09/04/21 23:45 Expected date of discharge: 09/14/21 Attending physician: Anibal Dominguez MD Consults: 09/04/21 23:46 Consult Physician Routine Consulting Provider: Gregory Vaughan Consult Reason/Comments: psa Do you want consulting provider notified?: Yes 09/05/21 00:00 Consult Physician Routine Consulting Provider: Adithya Monge Consult Reason/Comments: psa Do you want consulting provider notified?: Yes Primary care physician: Ida Shaffer Hospital Course: Discharge Diagnosis: Pseudoaneurysm, partially thrombosed with active bleeding, right groin Paroxysmal A. fib status post ablation Hypertension, controlled (urgency on arrival) Acute blood loss anemia Hypertropic Cardiomyopathy Hyponatremia Obesity with BMI 40.8 Complicated UTI versus asymptomatic bacturia Hypomagnesemia, resolved Constipation, resolved Hospital Course: Patient is a 70-year-old female with a known history of hypertrophic obstructive cardiomyopathy, A. fib status post ablation, hypertension, and arthritis who presented with sudden onset of swelling and worsening pain in her right groin. Last time she had access to her right groin was 2 months ago for A. fib ablation. In the ER she underwent a Doppler of her lower extremity which showed a 7 cm complex mass in the right groin likely partially thrombosed pseudoaneurysm. She was admitted for further monitoring. Vascular surgery was consulted and her Eliquis was held. She underwent CT abdomen and pelvis which showed large acute and chronic hematoma in the right groin region with evidence of pseudoaneurysm and some localized contrast extravasation medial to the femoral artery. On 09/07 patient underwent open surgical repair of right common femoral artery pseudoaneurysm with application of a wound VAC. She initially had significant output from her WALE drain that was serousanganious, it had been slowly resolving. She was found to have iron deficiency anemia and was started on oral iron. She progressed well and was determined stable to follow-up outpatient. She will have [facility], follow with Dr. Monge in 1 week and follow with Gloria byrne NP in 1 week. She will have a CBC in 1 week. No lifting greater than 10 pounds Patient seen and examined at bedside. No chest pain, resolved constipation, on leg pain, decreased drain output. Feeling well, all questions answered. Vital signs reviewed and stable. General: non toxic, no distress, appears at stated age Derm: warm, dry Head: atraumatic, normocephalic, symmetric Eyes: EOMI, no lid lag, anicteric sclera Mouth: no lip lesion, mucus membranes moist Cardiovascular: S1S2 reg, no murmur, positive posterior DP pulse bilateral, Lungs: Decreased bs bilateral, no rhonchi, no rales , no accessory muscle use Abdominal: soft, nontender to palpation, no guarding, no appreciable organomegaly Ext: no gross muscle atrophy, no edema, no contractures, + WALE drain output sanganous Neuro: CN II-XI grossly intact, no focal neuro deficits Psych: Alert, oriented, appropriate affect A total of 45 minutes of time were spent preparing this complex discharge sum fatemeh . Patient Condition at Discharge: Good Plan - Discharge Summary Discharge Rx Participant: No New Discharge Prescriptions: New Losartan [Cozaar] 50 mg PO BID #60 tab Acetaminophen Tab [Tylenol] 650 mg PO Q6HR PRN tab PRN Reason: Mild Pain Or Fever > 100.5 Ferrous Sulfate [Slow Fe] 142 mg PO DAILY #30 tab Continue Apixaban [Eliquis] 5 mg PO BID Metoprolol Succinate [Toprol XL] 25 mg PO DAILY Amiodarone [Cordarone] 100 mg PO BID Discontinued Losartan Potassium 50 mg PO HS Acyclovir 800 mg PO QID Discharge Medication List Apixaban [Eliquis] 5 mg PO BID 06/22/21 [History] Amiodarone [Cordarone] 100 mg PO BID 09/04/21 [History] Metoprolol Succinate [Toprol XL] 25 mg PO DAILY 09/04/21 [History] Acetaminophen Tab [Tylenol] 650 mg PO Q6HR PRN tab 09/14/21 [Rx] Ferrous Sulfate [Slow Fe] 142 mg PO DAILY #30 tab 09/14/21 [Rx] Losartan [Cozaar] 50 mg PO BID #60 tab 09/14/21 [Rx] Follow up Appointment(s)/Referral(s): Gregory Vaughan MD [STAFF PHYSICIAN] - 2 Weeks Adithya Monge DO [STAFF PHYSICIAN] - 1 Week [facility], [NON-STAFF] - Ida Shaffer MD [Primary Care Provider] - 1-2 days Ambulatory/Diagnostic Orders: Complete Blood Count w/diff [LAB.AMB] Time Frame: 1 Week, Location: None Selected Activity/Diet/Wound Care/Special Instructions: Activity: no lifting greater than 20 pounds Diet: heart healthy, high fiber Wound Care: change dressing once daily and inspect for warmth and drainage, change more frequently if soak through occurs Special Instructions: blood work in 1 week Discharge Disposition: HOME WITH HOME HEALTH SERVICES
[2021-09-14] MEDS ORDERED: SODIUM FERRIC GLUCONAT-SUCROSE 125 MG in SODIUM CHLORIDE 0.9% 100 ML IVPB ONE (12:00)
--- NOTE | 2021-09-14 13:33 | P.PN ---
Subjective This is a 70-year-old female with a past medical history significant for hypertension, paroxysmal atrial fibrillation, and hypertrophic cardiomyopathy. Patient follows in the office with Dr. Vaughan. We have been asked to see the patient in consultation for pseudo-aneurysm. Patient underwent atrial fibrillation ablation on 07/19/2021. Patient states she has been doing well over the past 2 months. She stated over the past couple days she has been having some nerve pain in her right lower extremity but was not having a rash. She went to her primary care physician and was prescribed acyclovir for possible shingles. She states yesterday when she got home she was sitting down when she suddenly was having difficulty moving her leg and noticed a large bulge in her right groin and presented to emergency department for further management. She underwent CT revealing large acute on chronic hematoma in the right groin region with evidence of pseudoaneurysm and some localized contrast extravasation medial to the femoral artery. Vascular was consulted. On 09/07/11 patient underwent open surgical repair of a right common femoral artery pseudoaneurysm and wound vac placement 09/14/21 Patient examined this morning at the bedside. Patient denies chest pain or pressure. She denies shortness of breath. Her pain is controlled. WALE drain present with serosanguieous drainage, which is improving. Per vascular patient is cleared for discharge. Her vital signs are stable. She is maintaining sinus mechanism. Her eliquis has been restarted at 5mg BID Her blood pressure was elevated and losartan was increased to 50mg BID and her blood pressures have improved. PHYSICAL EXAM: VITAL SIGNS: Reviewed. GENERAL: Well-developed in no acute distress. HEENT: Neck supple. No JVD LUNGS: Respirations even and unlabored. Lungs essentially clear to auscultation bilaterally. HEART: Regular rate and rhythm. S1 and S2 heard. Systolic murmur noted. ABDOMEN: Soft. Nondistended. Nontender. EXTREMITIES: Normal range of motion. No clubbing or cyanosis. Peripheral pulses intact.Surgical incision right groin site with dressings clean dry and intact. WALE drain present with serosanguineous drainage NEUROLOGIC: Awake and alert. Oriented x 3. ASSESSMENT: Right groin pseudoaneurysm Pseudoaneurysm right groin Paroxysmal atrial fibrillation with recent ablation on 07/19/2021 Hypertension Hypertrophic cardiomyopathy PLAN: Eliquis restarted at 5mg BID outpatient Continue amiodarone 100 mg twice a day, losartan 50 mg BID, metoprolol tartrate 25 mg daily From a cardiology perspective, patient is stable to be discharged home. Follow up with Dr. Vaughan outpatient Nurse practitioner note has been reviewed by physician. Signing provider agrees with the documented findings, assessment, and plan of care. Objective - Vital Signs Vital signs: Vital Signs Temp 98.1 F 09/14/21 08:00 Pulse 64 09/14/21 08:00 Resp 16 09/14/21 08:00 BP 157/69 09/14/21 08:00 Pulse Ox 98 09/14/21 08:00 Intake & Output 09/13/21 09/14/21 09/14/21 18:59 06:59 18:59 Intake Total 630 10 270 Output Total 235 165 135 Balance 395 -155 135 Intake: IV 10 10 10 Invasive Line 6 10 10 10 Oral 620 260 Output: Drainage 235 165 135 Right Groin 235 165 135 Other: Voiding Method Toilet Toilet # Voids 2 2 - Labs CBC & Chem 7: 09/14/21 10:39 09/09/21 08:29 Labs: Abnormal Lab Results - Last 24 Hours (Table) 09/09/21 09/14/21 Range/Units 08:29 10:39 RBC 3.00 L (3.80-5.40) m/uL Hgb 8.9 L (11.4-16.0) gm/dL Hct 27.2 L (34.0-46.0) % Lymphocytes # 0.7 L (1.0-4.8) k/uL Iron 31 L (50-170) ug/dL % Saturation 10.95 L (12.00-45.00) Transferrin 199.0 L (204.0-354.0) mg/dL
== END 2021-09-14 16:42 | disposition home health service (06) | DRG 253 ==
LOC: EC 21:05 → 6NMEDSUR 23:45 → OBSVTOIN 23:45 → 2SICU 09-07 15:52 → 3SCARD 09-07 16:58
PROVIDERS: ADMIT Internal Medicine; ATTEND Internal Medicine
PROC: 04QK0ZZ Repair Right Femoral Artery, Open Approach (ICD-10-PCS; principal; 2021-09-07 13:00)
DX: T81.718A Complication of other artery following a procedure, not elsewhere classified, initial encounter (principal); I42.1 Obstructive hypertrophic cardiomyopathy; Z16.24 Resistance to multiple antibiotics; D62 Acute posthemorrhagic anemia; E87.1 Hypo-osmolality and hyponatremia; I42.2 Other hypertrophic cardiomyopathy; N39.0 Urinary tract infection, site not specified; Z68.41 Body mass index [BMI] 40.0-44.9, adult; H26.9 Unspecified cataract; Z20.822 Contact with and (suspected) exposure to COVID-19; M19.90 Unspecified osteoarthritis, unspecified site; D50.9 Iron deficiency anemia, unspecified; E66.9 Obesity, unspecified; E83.42 Hypomagnesemia; I10 Essential (primary) hypertension; I25.10 Atherosclerotic heart disease of native coronary artery without angina pectoris; I48.0 Paroxysmal atrial fibrillation; I72.4 Aneurysm of artery of lower extremity; I72.8 Aneurysm of other specified arteries; K59.00 Constipation, unspecified; S30.1XXA Contusion of abdominal wall, initial encounter; Z79.01 Long term (current) use of anticoagulants; Z96.653 Presence of artificial knee joint, bilateral; Z90.13 Acquired absence of bilateral breasts and nipples; Z86.14 Personal history of Methicillin resistant Staphylococcus aureus infection; Z85.3 Personal history of malignant neoplasm of breast; Z83.3 Family history of diabetes mellitus; Z79.899 Other long term (current) drug therapy
CPT/HCPCS: 36415; 36430; 74174; 80053; 81001; 83540; 83550; 83735; 84100; 85025; 85027; 85610; 85730; 86850; 86900; 86901; 86920; 87077; 87086; 87186; 87635; 93975; 99285

== ENCOUNTER → 2021-12-11 | Outpatient (CLI) | payer MEDICARE ==
--- NOTE | 2021-12-11 15:40 | CT ---
EXAMINATION TYPE: CT brain wo con DATE OF EXAM: 12/11/2021 COMPARISON: CT dated 06/22/2021 HISTORY: fall, headaches CT DLP: 1150 mGycm Automated exposure control for dose reduction was used. TECHNIQUE: CT scan of the brain is performed without IV contrast administration. FINDINGS: Brain volume loss changes, likely age-related. Bilateral cerebral white matter hypodensities, likely representing mild chronic microvascular ischemic changes. Scattered arterial atherosclerotic calcific ations. Left pontine hypodensity, possibly artifactual. No acute intracranial hemorrhage. No gross acute sena ical infarct. No midline shift, herniation or ventriculomegaly. Unremarkable casey-white matter differentiation, basal cisterns, sella and CP angles. No gross space-o ccupying lesion, vasogenic edema or mass effect. Unremarkable orbits. Clear visualized paranasal sinuses and mastoid air cells. Unremarkable calvarial bones. IMPRESSION: No acute intracranial posttraumatic sequela or acute calvarial bone fracture. Incidental findings as described above.
== END | disposition home or self-care (01) ==
LOC: RADCTMAIN 14:57
PROVIDERS: ATTEND Internal Medicine
DX: R51.9 Headache, unspecified (principal)
CPT/HCPCS: 70450

== ENCOUNTER 2022-10-26 02:49 | Emergency (ER) | payer MEDICARE ==
[2022-10-26 03:00] VITALS: PULSE 62; RESP 16; TEMP 97.4
[2022-10-26] MEDS ORDERED: HYDROcodone/APAP 5-325MG 1 EACH TAB PO STA (03:16)
--- NOTE | 2022-10-26 03:33 | ED ---
General Adult HPI - General Chief complaint: Abdominal Pain Stated complaint: Abd pain Time Seen by Provider: 10/26/22 03:09 Source: patient, RN notes reviewed Mode of arrival: ambulatory - History of Present Illness Initial comments: Patient is a 71-year-old female presenting to the emergency room with complaints of pain on the left side of her abdomen.. She reports the pain has been ongoing since a fall approximately 1 week ago with increased intensity earlier today after sneezing. She reports the pain is slowly improving since an increase in intensity earlier this evening. She is on Tylenol 3's for knee pain from a fall approximately 2 weeks ago but has not taken any doses for approximately 6 hours consequently she is unsure if that medication will help with her symptoms. She reports that approximately 1 week ago she was attempting to remove ice from her sliding glass door and she fell backwards landing on her buttocks region with a bruise across the upper part of her buttocks along with her back and head. She reports not obtaining evaluation after this fall. She denies any head or neck pain, loss of consciousness, dizziness, nausea, diarrhea vomiting, abdominal pain not related to movement or inspiration, dysuria, hematuria, chest pain, shortness of breath, fevers or chills. Significant for osteoarthritis, hypertension and breast cancer. - Related Data Home Medications Medication Instructions Recorded Confirmed Apixaban [Eliquis] 5 mg PO BID 06/22/21 09/04/21 Amiodarone [Cordarone] 100 mg PO BID 09/04/21 09/04/21 Metoprolol Succinate [Toprol XL] 25 mg PO DAILY 09/04/21 09/04/21 Previous Rx's Medication Instructions Recorded Acetaminophen Tab [Tylenol] 650 mg PO Q6HR PRN tab 09/14/21 Ferrous Sulfate [Slow Fe] 142 mg PO DAILY #30 tab 09/14/21 Losartan [Cozaar] 50 mg PO BID #60 tab 09/14/21 Allergies Allergy/AdvReac Type Severity Reaction Status Date / Time amoxicillin Allergy Swelling Verified 09/04/21 23:12 of Lips cinnamon Allergy Rash/Hives Verified 09/04/21 23:12 Iodinated Contrast Media Allergy Anaphylaxis Verified 09/04/21 23:12 [Iodinated Contrast Media - IV Dye] latex Allergy Rash/Hives Verified 09/04/21 23:12 venom-honey bee Allergy Swelling/Pa Verified 09/04/21 23:12 ralysis Review of Systems ROS Statement: Those systems with pertinent positive or pertinent negative responses have been documented in the HPI. ROS Other: All systems not noted in ROS Statement are negative. Past Medical History Past Medical History: Cancer, Hypertension, Osteoarthritis (OA) Additional Past Medical History / Comment(s): breast CA, loop recorder, HCM, A fib (Loop monitor) History of Any Multi-Drug Resistant Organisms: MRSA Date of last positivie culture/infection: 2010 MDRO Source:: nasal Past Surgical History: Section, Cholecystectomy, Orthopedic Surgery Additional Past Surgical History / Comment(s): Bilateral mastectomy, bilateral knee replacements, bilateral shoulder surgeries, bilateral cateract surgeries, surgery on nose, mrsa 2010, left rotator cuff repair 07/25/16, cryo ablasion. Past Anesthesia/Blood Transfusion Reactions: No Reported Reaction Past Psychological History: No Psychological Hx Reported Smoking Status: Never smoker Past Alcohol Use History: None Reported Past Drug Use History: None Reported - Past Family History Mother Family Medical History: No Reported History Father Family Medical History: Diabetes Mellitus General Exam - General Exam Comments Initial Comments: GENERAL: No acute distress, well developed, well nourished. Obese HEENT: Normocephalic, atraumatic. Pupils equal, round, reactive to light. Moist mucous membranes. LUNGS: No respiratory distress or use of accessory muscles. HEART: Regular rate.. ABDOMEN: Soft. Normal bowel sounds. Non-distended. No masses. Mild tenderness noted at mid left rib border. BACK: Normal inspection. EXTREMITIES: Large lower extremities. No pitting edema Left knee tenderness Moves all extremities. NEUROLOGIC: Alert & oriented x 3. CN II-XII grossly intact. PSYCHIATRIC: Normal affect and behavior. DERMATOLOGIC: Skin intact, without rashes or lesions noted. Bruising to upper buttocks not evaluated Course Vital Signs 10/26/22 10/26/22 02:50 03:52 Temperature 97.4 F L Pulse Rate 62 Respiratory 16 Rate Blood Pressure 136/76 O2 Sat by Pulse 99 Oximetry Medical Decision Making - Medical Decision Making Was pt. sent in by a medical professional or institution (, [facility], COMMUNITY ASSOCIATION MANAGER, urgent care, hospital, or senior care...) When possible be specific @ -No Did you speak to anyone other than the patient for history (EMS, parent, family, police, friend...)? What history was obtained from this source @ -No Did you review nursing and triage notes (agree or disagree)? Why? @ -I reviewed and agree with nursing and triage notes Were old charts reviewed (outside hosp., previous admission, EMS record, old EKG, old radiological studies, urgent care reports/EKG's, senior care records)? Report findings @ -No old charts were reviewed Differential Diagnosis (chest pain, altered mental status, abdominal pain women, abdominal pain men, vaginal bleeding, weakness, fever, dyspnea, syncope, headache, dizziness, GI bleed, back pain, seizure, CVA, palpatations, mental health, musculoskeletal)? @ -Differential Musculoskeletal Muscular strain, contusion, ligament sprain, fracture, arthritis, septic arthritis, bursitis, cellulitis, muscle spasm, nerve compression, DVT, arterial occlusion, herpes zoster, electrolyte abnormality, tumor.... This is not meant to be in all inclusive list EKG interpreted by me (3pts min.). @ -None done X-rays interpreted by me (1pt min.). @ -X-ray AP pelvis: No acute osseous pathology. Sacroiliac joints in place. No fracture or dislocation. Rib x-ray with PA chest: No acute cardiopulmonary process. No rib fracture. CT interpreted by me (1pt min.). @ -CT abdomen and pelvis without contrast: right inguinal chronic hematoma per radiologist decrease in size compared to previous exam no spleen a laceration, bowel obstruction or any other acute processes clinically correlating for patient's pain. U/S interpreted by me (1pt. min.). @ -None done What testing was considered but not performed or refused? (CT, X-rays, U/S, labs)? Why? @ -CT of the brain considered due to fall on blood thinners however fall one week ago with out loss of consciousness headache dizziness or neurological deficits will defer. What meds were considered but not given or refused? Why? @ -None Did you discuss the management of the patient with other professionals (professionals i.e. , PA, COMMUNITY ASSOCIATION MANAGER, lab, RT, psych nurse, social worker clinical, qa automation developer, teacher, systems support officer, case assembler)? Give summary @ -No Was smoking cessation discussed for >3mins.? @ -No Was critical care preformed (if so, how long)? @ -No Were there social determinants of health that impacted care today? How? (Homelessness, low income, unemployed, alcoholism, drug addiction, transportation, low edu. Level, literacy, decrease access to med. care, longterm, rehab)? @ -No Was there de-escalation of care discussed even if they declined (Discuss DNR or withdrawal of care, Hospice)? DNR status @ -No What co-morbidities impacted this encounter? (DM, HTN, Smoking, COPD, CAD, Cancer, CVA, ARF, Chemo, Hep., AIDS, mental health diagnosis, sleep apnea, morbid obesity)? @ -None Was patient admitted / discharged? Hospital course, mention meds given and route, prescriptions, significant lab abnormalities, going to OR and other pertinent info. @ -71-year-old female presents to the emergency room with complaints of left-sided abdominal pain worse with inspiration with fall one week ago on blood thinners. Will obtain x-ray of the hips and pelvis along with ribs. If normal will proceed with CT of the abdomen and pelvis. No indication for laboratory studies. Will give [place] for pain and monitor response. X-ray ribs, AP chest along pelvic x-ray negative for acute findings. Will proceed with CT of the abdomen and pelvis. CT abdomen and pelvis without acute processes clinically correlating for patie nt's pain. Findings discussed with patient at length. Pain improved with [place]. No indication for further diagnostic imaging or laboratory studies. Questions and concerns answered. Encouraged follow-up with primary care provider along with orthopedist. Encouraged emergency evaluation for any falls in the setting of blood thinner usage. Return parameters to the emergency room discussed. Will discharge home in stable condition with continued use of previously prescribed Tylenol No. 3 days as needed for pain advising follow-up with primary care provider. Undiagnosed new problem with uncertain prognosis? @ -No Drug Therapy requiring intensive monitoring for toxicity (Heparin, Nitro, Insulin, Cardizem)? @ -No Were any procedures done? @ -No Diagnosis/symptom? @ -Left abdominal pain Acute, or Chronic, or Acute on Chronic? @ -Acute Uncomplicated (without systemic symptoms) or Complicated (systemic symptoms)? @ -Uncomplicated Side effects of treatment? @ -No Exacerbation, Progression, or Severe Exacerbation? @ -No Poses a threat to life or bodily function? How? (Chest pain, [place], [place], pneumonia, PE, COPD, DKA, ARF, appy, cholecystitis, CVA, Diverticulitis, Homicidal, Suicidal, threat to staff... and all critical care pts) @ -No Case discussed with Dr. Kelly. - Radiology Data Radiology results: report reviewed, image reviewed Disposition Clinical Impression: Abdominal pain Disposition: HOME SELF-CARE Condition: Stable Instructions (If sedation given, give patient instructions): Abdominal Pain (ED) Additional Instructions: Please return to the Emergency Department if symptoms worsen or any other concerns. Continue to utilize her Tylenol 3 already prescribed for pain as needed. Please follow-up with your primary care provider. Is patient prescribed a controlled substance at d/c from ED?: No Referrals: Charles Loaiza MD [Primary Care Provider] - 1-2 days Time of Disposition: 04:26
--- NOTE | 2022-10-26 03:37 | XR ---
EXAMINATION TYPE: XR ribs bilat w pa chest xray DATE OF EXAM: 10/26/2022 COMPARISON: Chest x-ray 07/17/2021 HISTORY: Pain TECHNIQUE: 9 views FINDINGS: Heart and mediastinum are normal. Lungs are clear of infiltrate. No pleural effusion. No ev idence of pneumothorax. There is pin from right shoulder surgery. There are clips from cholecystectom y. No rib fracture seen. IMPRESSION: No active cardiopulmonary disease. No rib fracture. Heart and lungs not changed compared to old exam.
--- NOTE | 2022-10-26 03:38 | XR ---
EXAMINATION TYPE: XR pelvis AP view DATE OF EXAM: 10/26/2022 COMPARISON: NONE HISTORY: Pain TECHNIQUE: Single view FINDINGS: Pelvic ring is intact. Proximal femurs and hip joints appear normal. Sacroiliac joints appe ar normal. IMPRESSION: Normal pelvis. No fracture.
[2022-10-26 03:53] VITALS: BP 136/76
--- NOTE | 2022-10-26 04:24 | CT ---
EXAMINATION TYPE: CT abdomen pelvis wo con DATE OF EXAM: 10/26/2022 COMPARISON: 09/05/2021 HISTORY: left side abd pain CT DLP: 1223.4 mGycm Automated exposure control for dose reduction was used. Images obtained from the diaphragm to the floor the pelvis with no contrast. The lung bases are clear of infiltrate. No pleural effusion. Heart is top normal in size. No pericard ial effusion. Liver spleen and stomach pancreas appear intact. There are clips from cholecystectomy. The bowel is nondilated. There is no adrenal mass. Kidneys of normal size. No hydronephrosis. Ureters are not dilated. No retr operitoneal adenopathy. Bladder distends smoothly. No inguinal hernia. There is small oval shaped flu id collection in the right inguinal region measuring 4 x 2 cm and consistent with a chronic hematoma or seroma. No pelvic mass. There are numerous sigmoid diverticula. No sign of diverticulitis. There is no mesenteric edema. No ascites or free air. No sign of a bowel obstruction. Appendix is not seen. No central thickened appendix. The lumbar vertebrae have normal alignment. There is mild disc space narrowing. No compression fractu re. Bony pelvis appears intact. The hip joints are intact. There is acetabular hypertrophic spurring. Sacroiliac joints are intact. IMPRESSION: Moderate colonic diverticulosis without diverticulitis. Appendix not seen. No acute abnormality of th e abdomen and pelvis. Mild cardiomegaly. There is significant clearing of the large hematoma in the r ight inguinal region compared to old exam. There is small residual fluid collection measuring 4 x 2 c m.
== END 2022-10-26 04:33 | disposition home or self-care (01) ==
LOC: EC 02:49
DX: R10.32 Left lower quadrant pain (principal); I10 Essential (primary) hypertension; Z91.041 Radiographic dye allergy status; Z91.040 Latex allergy status; Z88.1 Allergy status to other antibiotic agents; Z91.030 Bee allergy status; Z90.49 Acquired absence of other specified parts of digestive tract; Z79.899 Other long term (current) drug therapy; Z79.01 Long term (current) use of anticoagulants; W19.XXXA Unspecified fall, initial encounter
CPT/HCPCS: 71111; 72170; 74176; 99284

== ENCOUNTER → 2022-12-11 | Outpatient (CLI) | payer MEDICARE ==
--- NOTE | 2022-12-11 17:27 | NM ---
EXAMINATION TYPE: NM bone scan whole body DATE OF EXAM: 12/11/2022 COMPARISON: NONE HISTORY: Scoliosis low back pain Delayed whole-body scanning was performed following the injection of 25.5 mCi Tc 99m MDP. Images wer e acquired for hours post injection. FINDINGS: Radiotracer distribution appears unremarkable. Normal uptake is evident within the region of the urin yecenia bladder. There is some uptake within the bilateral feet likely related to some degenerative ashby e. Suspicious uptake to suggest metastatic disease is not identified. No photopenic defects are evident. IMPRESSION: 1. No suspicious radiotracer within the low back to account for back pain. 2. Degenerative type changes predominantly in the bilateral feet.
== END | disposition home or self-care (01) ==
LOC: RADNMMAIN 09:56
PROVIDERS: ATTEND Physical Medicine & Rehabilitation
DX: M19.071 Primary osteoarthritis, right ankle and foot (principal)
CPT/HCPCS: 78306; A9503

== ENCOUNTER → 2022-12-29 | Outpatient (CLI) | payer MEDICARE ==
--- NOTE | 2023-01-02 10:28 | MR ---
EXAMINATION TYPE: MR abdomen wo/w con DATE OF EXAM: 12/29/2022 12:30 PM INDICATION: Patient age:Female; 72 years old; Reason for study: E27.8 SPECIFIED DISORDERS OF ADRENAL GLAND; adrenal mass, incidental finding from l umbar MRI at . COMPARISON: CT scan abdomen from 10/26/2022 MRI lumbar spine outside institution 11/30/2022 TECHNIQUE: Multiplanar multi-sequence imaging was performed without contrast. Post contrast imaging was performed. Post IV contrast subtraction images were also submitted for review. IV Contrast: 10 cc Gadavist FINDINGS: LOWER CHEST: Breast implants are partially visualized with what is visualized appears intact. ABDOMEN Liver: Unremarkable. Gallbladder and Bile ducts: The common bile duct measures up toR 12 mm in thickness. The common hepat ic duct is also dilated up to 15 mm in thickness. Pancreas: Unremarkable. Spleen: Unremarkable. Adrenal glands: There is similar nodularity left adrenal gland which is better appreciated on CT. Thi s is similar dating back to 12/28/2020. Right adrenal gland is unremarkable. Kidneys: High T2 signal. Peripelvic cysts on the left. No evidence for obstruction. The kidneys do not demonstrate evidence for suspicious mass. There is a high T1 signal 4 mm proteinac eous/hemorrhagic cyst in the right posterior kidney which does not demonstrate enhancement on subtrac tion imaging. Stomach and Bowel: Unremarkable as visualized. Peritoneum: No evidence of pneumoperitoneum or free fluid. Vasculature: Unremarkable. No aortic aneurysm. Musculoskeletal: The osseous structures appear intact. Lymph Nodes: No gross evidence for lymphadenopathy. Abdominal wall: Unremarkable. IMPRESSION: 1. Stable morphology of the adrenal glands dating back to 12/28/2020 CT. No suspicious masses visualiz ed. 2. Proteinaceous/hemorrhagic 4 mm right renal cyst.
== END | disposition home or self-care (01) ==
LOC: RADMRIMAIN 11:19
PROVIDERS: ATTEND Internal Medicine
DX: E27.8 Other specified disorders of adrenal gland (principal); N28.1 Cyst of kidney, acquired
CPT/HCPCS: 74183; A9585

== ENCOUNTER → 2023-08-27 | Outpatient (CLI) | payer MEDICARE ==
[2023-08-27 15:25] LABS: Basophils # (A) 0.04 X 10*3/uL (0.00-0.10); Basophils % (A) 0.7 %; Eosinophils # (A) 0.16 X 10*3/uL (0.04-0.35); Eosinophils % (A) 2.8 %; HCT 41.3 % (37.2-46.3); HGB 13.2 g/dL (12.0-15.0); Lymphocytes # (A) 1.23 X 10*3/uL (0.90-5.00); Lymphocytes % (A) 21.8 %; MCH 28.9 pg (27.0-32.0); MCV 90.4 FL (80.0-97.0); Monocytes # (A) 0.42 X 10*3/uL (0.20-1.00); Monocytes % (A) 7.4 %; NRBC Per 100 WBC 0 X 10*3/uL (0.00-0.01); Neutrophils # (A) 3.74 X 10*3/uL (1.80-7.70); Neutrophils % (A) 66.2 %; Platelet Count 177 X 10*3/uL (140-440); RBC 4.57 X 10*6/uL (4.10-5.20); RDW 13.7 % (11.5-14.5); WBC 5.65 X 10*3/uL (4.50-10.00)
[2023-08-27 15:38] LABS: ALT 22 U/L (8-44); AST 20 U/L (13-35); Albumin 4.2 g/dL (3.8-4.9); Albumin/Globulin Ratio 1.75 Ratio (1.60-3.17); Alkaline Phosphatase 177 U/L (41-126); BUN/Creat Ratio 21.88 Ratio (12.00-20.00); Blood Urea Nitrogen 17.5 mg/dL (9.0-27.0); Calcium 9.7 mg/dL (8.7-10.3); Carbon Dioxide 26.3 mmol/L (21.6-31.8); Chloride 104 mmol/L (96-109); Globulin 2.4 g/dL (1.6-3.3); Glucose 99 mg/dL (70-110); LDL Cholesterol,Calculated 142.6 mg/dL (0.0-131.0); Potassium 3.8 mmol/L (3.5-5.5); Sodium 142 mmol/L (135-145); Total Bilirubin 0.6 mg/dL (0.3-1.2); Total Protein 6.6 g/dL (6.2-8.2); VLDL Calculation 15.34 mg/dL (5.00-40.00)
== END | disposition home or self-care (01) ==
LOC: LABWHC1 09:12
PROVIDERS: ATTEND Internal Medicine
DX: I42.2 Other hypertrophic cardiomyopathy (principal)
CPT/HCPCS: 36415; 80053; 80061; 84443; 85025

== ENCOUNTER → 2023-10-02 | Outpatient (CLI) | payer MEDICARE ==
--- NOTE | 2023-10-02 13:58 | CT ---
EXAMINATION TYPE: CT iac wo con DATE OF EXAM: 10/02/2023 COMPARISON: None HISTORY: iac problems CT DLP: 241mGycm Automated exposure control for dose reduction was used. FINDINGS: The external auditory canals are patent bilaterally. Mastoid air cells show no evidence of abnormal opacification bilaterally. The middle ear ossicles are symmetric and unremarkable. There is no evidence of suspicious surrounding soft tissue density to suggest cholesteatoma. The scutum is preserved bilaterally. The cochlea and the semicircular canals are symmetric and unremarkable. Ves tibular aqueduct and internal carotid canal appear unremarkable. Temporomandibular joints are mainta ined bilaterally. IMPRESSION: No significant abnormality seen to account for patient's symptoms.
== END | disposition home or self-care (01) ==
LOC: RADCTMAIN 12:42
PROVIDERS: ATTEND Otolaryngology
DX: H92.01 Otalgia, right ear (principal)
CPT/HCPCS: 70480

== ENCOUNTER → 2024-01-07 | Outpatient (CLI) | payer MEDICARE ==
[2024-01-07 16:23] LABS: African American GFR (CKD) >90 (>60 ml/min/1.73 sqM); Blood Urea Nitrogen 18 mg/dL (7-17); Non-African American GFR(CKD) 90 (>60 ml/min/1.73 sqM)
--- NOTE | 2024-01-16 13:35 | CT ---
EXAMINATION TYPE: CT angio abd aorta w/Runoff DATE OF EXAM: 01/07/2024 COMPARISON: Abdomen and pelvis 10/26/2022 HISTORY: 73 year-old female right leg swelling and redness. History of rt leg aneurysm with repair. I71.43 INFRARENAL ABDOMINAL AORTIC ANEURYSM, WITHO TECHNIQUE: Contiguous axial scanning of the abdomen and pelvis performed without IV contrast, subsequ ently, the patient was injected with 115mll mL of Isovue 370 with scanning through the abdomen, pelvi s, and bilateral lower extremity runoff. Coronal/sagittal reconstructions performed. 3-D reconstructi ons generated on a dedicated independent workstation. CT DLP: 2548.80 mGycm Automated exposure control for dose reduction was used. FINDINGS: Partially visualized bilateral breast prostheses. Heart is borderline to mildly enlarged without rashad cardial effusion. Mitral annular calcifications are noted. Strandy atelectasis or pneumonia. Small hiatal hernia. Mildly diminished attenuation of the hepatic parenchyma suggesting mild fatty infiltration. Otherwise , noncontrast and arterial phase imaging shows a small duodenal diverticulum measuring 2.5 cm project ing into the pancreatic head region. Previous cholecystectomy clips. Similar prominence to the bile d uct measuring up to 1.2 cm. Adrenal glands, left kidney, bleeding, and pancreas within normal limits. Tiny 7 mm cortical cyst posterior mid right kidney. No hydronephrosis or nephrolithiasis. No dilated small bowel, free fluid, or free air. Small fatty and the hernia measuring 2.7 cm wide. No mesenteric or retroperitoneal lymphadenopathy. Moderate stool within the right side of the colon. There is sigmoid colonic diverticulosis. No linda lonic inflammatory change. Bladder is collapsed. Uterus surgically absent. Suspect small bilateral ovaries. Asymmetrically larger right external iliac chain node measuring up to 9 mm and right inguinal/upper f emoral canal chain nodes measuring up to 1.4 cm, slightly increased in the interval. Redemonstrated is elongated fluid collection along the anterior femoral neurovascular bundle at the u pper thigh. This currently measures 3.4 cm versus 4.2 cm, previously. Previously not entirely imaged. Full dimension is 3.4 x 1.9 x 8.1 cm. Incisional scar extending from here to the skin surface. Some peripheral enhancement is noted with some mild surrounding fat stranding. Suspect additional soft tis beatrice thickening representing scar tissue along the underlying femoral vessels. Vasculature: The celiac axis, SMA, and DRAGAN are patent. Mild to moderate episodic narrowing at the origin of the le ft renal artery. There is an accessory right renal artery to the lower pole. No AAA. The bilateral iliac vessels as well as the STAINING MACHINE OPERATOR, PFA, and SFA are widely patent. Dense artifact relating to the patient's bilateral total knee arthroplasties limits assessment of a s egment of the bilateral popliteal arteries. The visualized portions are widely patent. Right abnormal takeoff of the bilateral anterior tibial arteries. Trifurcation vessels are patent with scattered mi ld atherosclerotic changes. Peroneal arteries become diminutive at the mid leg and are seen to just above the ankle. Posterior tibial arteries are seen to the hindfoot. Anterior tibial arteries seen to the mid foot. Some asymmetric calf muscle atrophy right lower extremity. Bones: Baastrup's disease. Hypertrophic facet arthropathy throughout mid to lower lumbar spine. Moder ate to advanced degenerative disc disease mid to lower lumbar spine. Trace grade 1 anterolisthesis of L4-L5. At least moderate degenerative change of both hips. IMPRESSION: 1. PRIOR SURGERY AT THE UPPER RIGHT FEMORAL CANAL AND RIGHT INGUINAL REGION. THE UNDERLYING ILIAC AND FEMORAL ARTERIAL VASCULATURE REMAINS WIDELY PATENT. NO ABNORMAL CONTRAST EXTRAVASATION OR OUTPOUCHIN G. SOME MILD SOFT TISSUE ENCASEMENT ALONG THE STAINING MACHINE OPERATOR AND UPPER SFA IS SIMILAR, LIKELY POSTOPERATIVE SCAR RING. 2. A FLUID COLLECTION OVERLYING THE RIGHT FEMORAL NEUROVASCULAR BUNDLE OF THE UPPER THIGH MEASURES SM ALLER COMPARED TO 10/26/2022 AT 3.4 CM VERSUS 4.2 CM, PREVIOUSLY. THE FULL EXTENT WAS PREVIOUSLY NOT IM AGED. CURRENTLY MEASURING 3.4 X 1.9 X 8.1 CM. CHRONIC SEROMA/HEMATOMA AND ABSCESS ARE DIFFERENTIAL CO NSIDERATIONS.
== END | disposition home or self-care (01) ==
LOC: RADCTMAIN 15:27
PROVIDERS: ATTEND Surgery
DX: I71.43 Infrarenal abdominal aortic aneurysm, without rupture (principal); L03.115 Cellulitis of right lower limb; M79.89 Other specified soft tissue disorders; Z98.890 Other specified postprocedural states
CPT/HCPCS: 82565; 84520; 75635; 36415; Q9967

== ENCOUNTER → 2024-02-13 | Outpatient (CLI) | payer MEDICARE ==
--- NOTE | 2024-02-13 10:40 | CT ---
EXAMINATION TYPE: CT brain wo con DATE OF EXAM: 02/13/2024 COMPARISON: To 724 INDICATION: bruising to entire face including both orbits after face plant to cement x1 week ago. DLP: 1505.0 mGycm, Automated exposure control for dose reduction was used. CONTRAST: None CT of the brain is performed utilizing 3 mm thick sections through the posterior fossa and 3 mm thick sections through the remaining calvarium. Study is performed within 24 hours of arrival to the hosp ital. No abnormal hyperdensity is present to suggest an acute intracranial hemorrhage. No mass lesion is evident. No acute infarcts are evident. Some mild periventricular white matter hypodensity is present, likely on the basis of chronic white matter ischemic changes. Ventricles and sulci are appropriate for the patient age. Paranasal sinuses and mastoid air cells within the [id number] are clear. Maxillary spine is intact. Nasal bones appear intact. Greater wings of the sphenoid appear symmetrica l. There are some lucencies near the anterior left orbit which may be chronic. Zygomatic arches are i ntact. Orbital floors and medial orbits are intact. Left septal deviation is noted. IMPRESSION: 1. Mild periventricular chronic white matter ischemic-type changes.. 2. No acute posttraumatic changes.
--- NOTE | 2024-02-13 10:49 | CT ---
EXAMINATION TYPE: CT orbits wo con DATE OF EXAM: 02/13/2024 COMPARISON: CT brain same date HISTORY: bruising to entire face including both orbits after face plant to cement x1 week ago. CT DLP: 1505.0 mGycm Automated exposure control for dose reduction was used. Contrast: None Technique: Axial images 2 mm thick sections. Reconstructed images in the coronal and sagittal planes FINDINGS: Maxillary spine is intact. Maxilla and mandible within the field of view appear normal. Nasal bones a ppear intact. There is a right lucinda bullosa. Ostiomeatal units are patent. Frontal ethmoid sphenoid and maxillary sinuses within the field of view are clear. Mastoid air cells are clear. In the coronal plane there is an air-fluid level within the right Rehan air cell. Orbital floors are intact. Medial orbital mojica are intact. Displaced lateral orbital wall fractures are not evident. There appear to be some chronic sutures in the greater wings of the sphenoid more ap parent on the left. Cortical margins appear smooth. IMPRESSION: 1. NO DEFINITE ACUTE FRACTURES IDENTIFIED. NO DISPLACED FRACTURES EVIDENT.
== END | disposition home or self-care (01) ==
LOC: RADCTMAIN 10:00
PROVIDERS: ATTEND Internal Medicine
DX: H57.11 Ocular pain, right eye (principal); I67.82 Cerebral ischemia
CPT/HCPCS: 70450; 70480

== ENCOUNTER → 2024-11-23 | Outpatient (CLI) | payer MEDICARE ==
[2024-11-23 14:53] LABS: Basophils # (A) 0.02 X 10*3/uL (0.00-0.10); Basophils % (A) 0.4 %; Eosinophils # (A) 0.09 X 10*3/uL (0.04-0.35); Eosinophils % (A) 1.8 %; HCT 40.4 % (37.2-46.3); HGB 12.9 g/dL (12.0-15.0); Lymphocytes # (A) 1.11 X 10*3/uL (0.90-5.00); MCH 29.3 pg (27.0-32.0); MCHC 31.9 g/dL (32.0-37.0); MCV 91.8 FL (80.0-97.0); Mean Platelet Volume 11.9 FL (9.5-12.2); Monocytes % (A) 9.9 %; NRBC Per 100 WBC 0 X 10*3/uL (0.00-0.01); Neutrophils # (A) 3.28 X 10*3/uL (1.80-7.70); Neutrophils % (A) 65.1 %; Platelet Count 154 X 10*3/uL (140-440); WBC 5.04 X 10*3/uL (4.50-10.00)
[2024-11-23 15:22] LABS: ALT 19 U/L (8-44); AST 18 U/L (13-35); Albumin 3.7 g/dL (3.8-4.9); Albumin/Globulin Ratio 1.76 Ratio (1.60-3.17); Alkaline Phosphatase 98 U/L (41-126); BUN/Creat Ratio 28.11 Ratio (12.00-20.00); Blood Urea Nitrogen 25.3 mg/dL (9.0-27.0); Calcium 9.3 mg/dL (8.7-10.3); Carbon Dioxide 26.7 mmol/L (21.6-31.8); Chloride 107 mmol/L (96-109); Chol/HDL Ratio 3.24 Ratio; Globulin 2.1 g/dL (1.6-3.3); Glucose 101 mg/dL (70-110); LDL Cholesterol,Calculated 140.1 mg/dL (0.0-131.0); Magnesium 1.7 mg/dL (1.5-2.4); Potassium 4.1 mmol/L (3.5-5.5); Sodium 141 mmol/L (135-145); Total Bilirubin 0.9 mg/dL (0.3-1.2); Total Protein 5.8 g/dL (6.2-8.2); VLDL Calculation 12.64 mg/dL (5.00-40.00)
== END | disposition home or self-care (01) ==
LOC: LABWHC1 09:51
PROVIDERS: ATTEND Internal Medicine Clinical Cardiac Electrophysiology
DX: E78.5 Hyperlipidemia, unspecified (principal); I10 Essential (primary) hypertension; I42.1 Obstructive hypertrophic cardiomyopathy
CPT/HCPCS: 36415; 80053; 80061; 83735; 84443; 85025